=== PATIENT | female | born 1995 | race Caucasian/White ===

== ENCOUNTER 2017-12-10 10:00 | Outpatient (RCR) | payer OTHER ==
[~2017-12-10 10:00] MED LIST: IBP600T1 PO
== END 2018-03-10 | disposition home or self-care (01) ==
LOC: CARD 10:00 → MERGE 10:00
PROVIDERS: ATTEND Family Medicine
DX: R00.0 Tachycardia, unspecified (principal)
CPT/HCPCS: 93225; 93226

== ENCOUNTER → 2017-12-16 | Outpatient (CLI) | payer OTHER ==
--- NOTE | 2017-12-16 12:28 | Diagnostic Imaging Report ---
INDICATION: care, second trimester. TECHNIQUE: Multiple real-time grayscale images were obtained over the gravid uterus. COMPARISON: 10/06/2017. FINDINGS: The previous OB ultrasound exam of 10/06/2017 noted a single live fetus of approximately 9 weeks 2 days gestation +/-1 week. On this exam, the fetus is again visualized. The fetus is in transverse presentation. heart motion was noted and a rate of 138 BPM was recorded. There are no abnormalities identified. However because of the patient's body habitus, the kidneys, spine, and four-chamber heart view are less than optimal. I would recommend that a short-term (4-6 week) followup exam be performed for further study. The growth parameters are fairly uniform and have progressed as expected since the prior study. The placenta is anterior and there is no previa. The amniotic fluid volume is within normal limits. IMPRESSION: 1. There is a single live fetus of approximately 19 weeks 3 days gestation +/-1 week. The EDC remains May 09, 2018. 2. There were no abnormalities identified but the kidneys, spine, and four-chamber heart view were less than optimal. Recommendations, as above. 3. The growth parameters have progressed as expected since the prior exam. Biometrical measurements are as follows: Biparietal 4.67 cm, age 20 weeks 1 days. Head circumference 17.31 cm, age 20 weeks 0 days. Abdominal circumference 14.77 cm, age 20 weeks 1 days. Femur length 3.10 cm, age 19 weeks 5 days. Sonographic estimate age: 20 weeks 0 days. Sonographic estimated date of delivery: 05/05/18. Estimated Weight: 317 gm (+/- 46 gm). LMP percentile: 71%. heart rate: 138 beats per minute. number: 1 of 1. Dictated by: Dictated on workstation # [id number]
== END ==
LOC: MERGE 10:06 → RAD 10:06
PROVIDERS: ATTEND Family Medicine
DX: Z34.82 Encounter for supervision of other normal pregnancy, second trimester (principal); Z3A.19 19 weeks gestation of pregnancy
CPT/HCPCS: 76805

== ENCOUNTER → 2018-01-08 | Outpatient (CLI) | payer OTHER ==
--- NOTE | 2018-01-08 17:53 | Diagnostic Imaging Report ---
INDICATION: patient, follow-up study for areas of anatomy not seen on the previous study of 12/16/2017. TECHNIQUE: Multiple real-time grayscale images were obtained over the gravid uterus. COMPARISON: 12/16/2017. FINDINGS: Normal-appearing spine and kidneys and four-chamber heart view were seen on today's study. Remaining structures were visualized on the previous study of 12/16/2017 were not repeated. Amniotic fluid is qualitatively normal. The placenta is anterior and grade 1 with no previa. heart rate is 146 beats per minute. Fetus is in transverse presentation. Cervical length is 7.2 cm. IMPRESSION: Limited study performed to follow-up incomplete areas of anatomy seen on the previous study. On today's study, spine, kidneys, and four-chamber heart view are seen and appear unremarkable. heart rate is 146 beats per minute. Anatomic areas which were visualized on the previous study of 12/16/2017 were not repeated on today's study. Dictated by: Dictated on workstation # [id number]
== END ==
LOC: RAD 15:16
PROVIDERS: ATTEND Family Medicine
DX: Z34.82 Encounter for supervision of other normal pregnancy, second trimester (principal); Z3A.00 Weeks of gestation of pregnancy not specified
CPT/HCPCS: 36415; 76816; 86850; 86900; 86901

== ENCOUNTER 2018-04-25 09:39 | Outpatient (CLI) | payer OTHER ==
[~2018-04-25] VITALS: Ht 162.6 cm; Wt 118.4 kg
[2018-04-25 11:50] VITALS: BP 124/73
[2018-04-25 12:15] LABS: BASOPHILS % (AUTO) 0 % (0-10); EOSINOPHILS % (AUTO) 0 % (0-10); HEMATOCRIT 33 % (35-52); HEMOGLOBIN 11.2 G/DL (11.5-16.0); LYMPHOCYTES % (AUTO) 17 % (12-44); MEAN CORPUSCULAR HEMOGLOBIN 27 PG (25-34); MEAN CORPUSCULAR HGB CONC 34 G/DL (32-36); MEAN CORPUSCULAR VOLUME 81 FL (80-99); MEAN PLATELET VOLUME 10.1 FL (7.4-10.4); MONOCYTES # (AUTO) 0.7 X 10^3 (0.0-1.0); MONOCYTES % (AUTO) 6 % (0-12); NEUTROPHILS % (AUTO) 77 % (42-75); PLATELET COUNT 267 10^3/uL (130-400); RED BLOOD COUNT 4.09 10^6/uL (4.35-5.85); RED CELL DISTRIBUTION WIDTH 14.9 % (10.0-14.5); WHITE BLOOD COUNT 11.7 10^3/uL (4.3-11.0)
[2018-04-25 12:33] LABS: ALANINE AMINOTRANSFERASE 15 U/L (0-55); ALKALINE PHOSPHATASE 193 U/L (40-136); BILIRUBIN,TOTAL 0.4 MG/DL (0.1-1.0); BUN/CREATININE RATIO 14; CALCIUM 8.8 MG/DL (8.5-10.1); CARBON DIOXIDE 18 MMOL/L (21-32); CHLORIDE 108 MMOL/L (98-107); CREATININE SERUM 0.57 MG/DL (0.60-1.30); GFR ESTIMATED > 60; GLUCOSE 70 MG/DL (70-105); POTASSIUM 4.2 MMOL/L (3.6-5.0); SODIUM 135 MMOL/L (135-145); TOTAL PROTEIN 6.3 GM/DL (6.4-8.2)
--- NOTE | 2018-04-27 21:25 | Physician Query-Final Dx ---
MARYSOL UGARTE 04/27/185: Clinic Account Progress/Dx Physician Query: Please give diagnosis Need diagnosis and weeks of gestation. Date of Service Apr 25, 2018 at 09:39 GARY RODRIGUEZ DO 04/28/18 0941: Clinic Account Progress/Dx DIAGNOSIS: Diagnosis 37 week GA pruritus w/o rash - normal NST, normal LFT - bile acid salts to r/o cholestasis of ordered and are pending MARYSOL UGARTE Apr 27, 2018 21:25 GARY RODRIGUEZ DO Apr 28, 2018 09:41
[2018-04-28] MEDS ORDERED: PREN-142 PO (17:00)
[2018-04-29] MEDS ORDERED: DOCU100C37 PO (11:03)
[2018-04-29] MEDS ORDERED: IBUP-1773 PO (11:03)
[2018-04-29] MEDS ORDERED: HYDR-4226 PO (11:03)
== END 2018-04-25 12:54 | disposition home or self-care (01) ==
LOC: LDRP 09:39 → WSo 09:39
PROVIDERS: ATTEND Family Medicine
DX: L29.9 Pruritus, unspecified (principal); Z3A.37 37 weeks gestation of pregnancy
CPT/HCPCS: 36415; 80053; 83789; 85025; 99213

== ENCOUNTER 2018-04-28 12:44 | Inpatient (IN) | payer OTHER ==
[~2018-04-28] VITALS: Ht 162.6 cm; Wt 118.4 kg
[2018-04-28] VITALS (34 sets, daily range): BP systolic 90–142; BP diastolic 59–90
[2018-04-28] MEDS ORDERED: OXYTOCIN/NORMAL SALINE 500 ML IV SCH (13:03)
[2018-04-28] MEDS ORDERED: AMPICILLIN FOR IV USE 2,000 MG in NS (IVPB) 50 ML IV SCH (13:03)
--- OUTSIDE RECORDS SUMMARY | 2018-04-28 13:15 | XMS REPORT ---
Author Author [facility] Address [address] [place] [address] Care Team Providers Care Supervisor Production Department Name Role Phone TORITO LONGORIAY Unavailable PROBLEMS Type Condition ICD9-CM Code [id number] Code Onset Dates Condition Status SNOMED Code Problem Rheumatoid arthritis involving multiple sites with positive rheumatoid factor M05.79 Active 96397243 Problem Rheumatoid arthritis M06.9 Active 36687366 Problem care, subsequent in third trimester Z34.83 Active 251403582 Problem Vasomotor rhinitis J30.0 Active 1374420 Problem Other obesity due to excess calories E66.09 Active 377481123 Problem Body mass index (BMI) of 40.0-44.9 in adult Z68.41 Active 276948272 Problem Seasonal allergies J30.2 Active 545497508 Problem Obesity complicating , unspecified trimester O99.210 Active 205251749514 ALLERGIES No Known Allergies ENCOUNTERS Encounter Location Date Diagnosis [place] [id number] [place] [address] 78050- 7996 Apr, [place] [id number] [place] [address] 44813- 8101 Apr, [place] [id number] [place] [address] 65890- 1318 Apr, screening for streptococcus B Z36.85 ; care, subsequent in third trimester Z34.83 and 36 weeks gestation of Z3A.36 [place] [address] [address]- [address] Mar, 34 weeks gestation of Z3A.34 ; Third trimester Z34.93 and BMI 40.0-44.9, adult Z68.41 [facility] [id number] [place] [address] 39875- 1039 Mar, [place] [id number] [place] [address] 20178- 1774 Mar, BMI 40.0-44.9, adult Z68.41 ; 32 weeks gestation of Z3A.32 ; Third trimester Z34.93 ; Right hip pain M25.551 and Encounter for immunization Z23 [place] [address] 0[address]- 8187 Feb, care, subsequent in third trimester Z34.83 and 29 weeks gestation of Z3A.[address] [address]- 9[address] 06 Feb, 2018 BMI 40.0-44.9, adult Z68.41 and care, subsequent in second trimester Z34.82 [place] [address] 97931- 8859 15 Jan, 2018 Diabetes mellitus screening Z13.1 [place] [address] 41842- 0904 08 Jan, 2018 care, subsequent in second trimester Z34.82 and 23 weeks gestation of Z3A.23 [place] [address] 61676- 8680 07 Jan, 2018 [facility] [id number] [place] [address] 23329 -8050 Jan, Seasonal allergies J30.2 ; Vasomotor rhinitis J30.0 and Sore throat J02.9 [place] [id number] [place] [address] 51613- 6696 December, care, subsequent in second trimester Z34.82 ; 20 weeks gestation of Z3A.20 ; Evaluate anatomy not seen on prior sonogram Z04.8 and Diabetes mellitus screening Z13.1 [place] [id number] [place] [address] 42247- 4602 Nov, Racing heart beat R00.0 [facility] [id number] [place] [address] 29875- 3563 Nov, Racing heart beat R00.0 [facility] [id number] [place] [address] 31998- 3828 Nov, [facility] [id number] [place] [address] 73777- 3846 Nov, care, subsequent in second trimester Z34.82 and 16 weeks gestation of Z3A.16 [place] [id number] [place] [address] 27174- 1099 Oct, care in first trimester Z34.91 ; Supervision of other high risk pregnancies, first trimester O09.891 ; 12 weeks gestation of Z3A.12 and Red blood cell antibody positive R76.8 [place] [id number] [place] [address] 99730- 6170 Sep, [facility] [id number] [place] [address] 90647- 5088 Sep, care in first trimester Z34.91 and 8 weeks gestation of Z3A.08 [place] [id number] [place] [address] 31631- 5191 Sep, [place] [id number] [place] [address] 37623- 9159 Sep, [place] [id number] [place] [address] 69902- 3698 Sep, [place] [id number] [place] [address] 26369- 2082 Sep, Encounter for test Z32.00 [place] [id number] [place] [address] 93614- 6839 Jun, [place] [id number] [place] [address] 25758- 0618 Jun, Infertility counseling Z31.69 [place] [id number] [address] 24[address] Jun, 2017 Infertility counseling Z31.69 ; Other obesity due to excess calories E66.09 ; Body mass index (BMI) of 40.0-44.9 in adult Z68.41 and BMI 40.0-44.9, adult Z68.41 [facility] [place] [id number] [place] [address] 38251 -7227 Apr, Acute suppurative otitis media of right ear with spontaneous rupture of tympanic membrane, recurrence not specified H66.011 [place] [id number] [place] [address] 17375- 7874 Feb, Bacterial conjunctivitis of right eye H10.9 [facility] [place] [id number] [place] [address] 11625 -3651 Nov, Sore throat J02.9 and Acute upper respiratory infection, unspecified J06.9 [place] [id number] [place] [address] 59188- 1358 Oct, Encounter for test Z32.00 [place] [id number] [place] [address] 79734- 7132 Sep, [place] [id number] [place] [address] 85070- 1042 Aug, [facility] [place] [id number] [place] [address] 01528 -2182 Aug, Bacterial conjunctivitis of right eye H10.9 [place] [id number] [place] [address] 30895- 4116 Aug, [place] [id number] [place] [address] 16708- 7031 Aug, Rheumatoid arthritis involving multiple sites with positive rheumatoid factor M05.79 [place] [id number] [place] [address] 20868- 9784 Aug, Rheumatoid arthritis of multiple sites with negative rheumatoid factor M06.09 [facility] [address] [facility] [id number], [place] [address] 1493 Jul, Morbid obesity due to excess calories E66.01 [facility] [id number] [address] May, Sore throat J02.9 [facility] [address], [place] [address]- 1362 14 May, 2016 Rheumatoid arthritis involving multiple sites with positive rheumatoid factor M05.79 [facility] [id number], [place] [address]- 5085 May, [facility] WALK IN [facility] [address], [place] [address] Apr, Acute bacterial conjunctivitis of right eye H10.31 [facility] [address], [place] [address]- 3797 Feb, Rheumatoid arthritis M06.9 and Rheumatic heart failure I09.[address] [id number] [place] [address] Nov Rheumatoid arthritis M06.9 [facility] [id number] [address]- 4339 Nov, Rheumatoid arthritis M06.9 and Rheumatic heart failure I09.81 [facility] [address] [facility] [id number], [place] [address] 4893 Nov, Left shoulder pain M25.512 ; Rheumatoid arthritis M06.9 and Rheumatic heart failure I09.81 [facility] [address] [facility] [id number], [place] [address]- 2463 Aug, Rheumatoid arthritis M06.9 [facility] [address] [facility] [id number] [address] Aug, Acute bacterial conjunctivitis of right eye H10.021 [facility] [id number], [place] [address]- 8445 Jul, Rheumatic heart failure I09.81 [facility] [address] [place] [address] 05978- 8723 Jun, Rheumatoid arthritis M06.9 [place] [id number] [place] [address] 79106- 3990 16 Jun, 2015 Rheumatoid arthritis M06.9 [facility]ALK IN [facility] [id number] [place] [address] 30347 -7486 13 Jun, 2015 Hordeolum external, unspecified laterality H00.019 and Seasonal allergies J30.2 [facility] [place] [id number] [place] [address] 47086 -5047 09 Jun, 2015 Otitis media of both ears H66.93 ; Sore throat J02.9 and Unspecified perforation of tympanic membrane, right ear H72.91 [place] [id number] [place] [address] 82467- 8163 May, Rheumatoid arthritis M06.9 [place] [id number] [place] [address] 12236- 5469 24 Apr, 2015 Rheumatoid arthritis 714.0 [place] [address] 69003- 5861 18 Apr, 2015 Bilateral knee pain 719.46 and Routine adult health maintenance V70.0 [place] [id number] [place] [address] 69107- 2920 17 Apr, 2015 Bilateral knee pain 719.46 ; Routine adult health maintenance V70.0 and Bilateral elbow joint pain 719.42 [place] [id number] [place] [address] 12859- 6926 Mar, Contraception, generic surveillance V25.40 [place] [address] 09870- 8288 Mar, Conjunctivitis 372.30 and Rash 782.1 [place] [id number] [place] [address] 18256- 8356 Mar, [place] [address] [id number] [place] [address]- 6535 14 Nov, 2014 [facility] [place] [facility] [address] [id number] [place] [address]- 3195 13 Nov, 2014 [facility] [place] [facility] [address] [id number] [place] [address]- 5390 18 Oct, 2014 [facility] [place] [facility] [address] [id number] [place] [address]- 4279 17 Oct, 2014 [facility] [place] [facility] [address] [id number] [place] [address]- 1872 17 Oct, 2014 [facility] [place] [facility] [address] [id number] [place] [address]- 6026 14 Oct, 2014 [facility] [place] [facility] [address] [id number] [place] [address]- 0166 14 Oct, 2014 [facility] [place] [facility] [address] [id number] [place] [address]- 9425 Feb, [facility] [place] [facility] [address] [id number] [place] [address]- 8034 Feb, [facility] [place] [facility] [address] [id number] [place] [address]- 5171 December, [facility] [place] [facility] [address] [id number] [place] [address]- 2628 December, [facility] [place] [facility] [address] [id number] [place] [address]- 5920 December, [facility] [place] [facility] [address] [id number] [place] [address]- 7382 December, [facility] [place] [facility] [address] [id number] [place] [address]- 6977 December, [facility] [place] [facility] [address] [id number] [place] [address]- 8776 December, [facility] [place] [facility] [address] [id number] [place] [address]- 8295 December, [facility] [place] [facility] [address] [id number] [place] [address]- 9046 Nov, [facility] [place] [facility] [address] [id number] [place] [address]- 8812 Nov, [facility] [place] [facility] [address] [id number] [place] [address]- 0838 Nov, [facility] [place] [facility] [address] [id number] [place] [address]- 8768 Nov, [facility] [place] [facility] [address] [id number] [place] [address]- 6803 Nov, [facility] [place] [facility] [address] [id number] [place] [address]- 3728 Nov, [facility] [place] [facility] [address] [id number] [place] [address]- 3502 Nov, [facility] [place] [facility] [address] [id number] [place] [address]- 9958 Nov, [facility] [place] [facility] [address] [id number] [place] [address]- 5654 Oct, [facility] [place] [facility] [address] [id number] [place] [address]- 2957 Oct, [facility] [place] [facility] [address] [id number] [place] [address]- 4556 Oct, [facility] [place] [facility] [address] [id number] [place] [address]- 2990 Oct, [facility] [place] [facility] [address] [id number] [place] [address]- 7779 Sep, [facility] [place] [facility] [address] [id number] [place] [address]- 6700 Sep, [facility] [place] [facility] [address] [id number] [place] [address]- 6746 Aug, [facility] [place] [facility] [address] [id number] [place] [address]- 1509 08 Aug, 2013 [facility] [address] [id number] [place] [address]- 5061 Aug, [facility] [place] [facility] [address] [id number] [place] [address]- 7368 Jul, [facility] [address] [id number] [place] [address]- 0184 Jul, 2012 [facility] [place] [facility] [address] [id number] [place] [address]- 4776 Jul, 2012 [facility] [address] [id number] [place] [address]- 0428 Jul, 2012 [facility] [address] [id number] [place] [address]- 3371 Jul, [facility] [place] [facility] [address] [id number] [place] [address]- 3812 Jul, [facility] [address] [id number] [place] [address]- 6823 Jul, [facility] [place] [facility] [address] [id number] [place] [address]- 1539 Jul, [facility] [address] [id number] [place] [address]- 4119 Jun, [facility] [place] [facility] [address] [id number] [place] [address]- 6151 May, [facility] [place] [facility] [address] [id number] [place] [address]- 4783 May, [facility] [place] [facility] [address] [id number] [place] [address]- 2549 May, [facility] [place] [facility] [address] [id number] [place] [address]- 2586 May, [facility] [place] [facility] [address] [id number] [place] [address]- 4199 May, [facility] [address] [facility] [id number], [place] [address]- 1596 May, [facility] [address] [facility] [id number] [address]061 May, [facility] [address] [facility] [id number] 3112 Aug, [facility] [address] [facility] [id number], [place] [address]- 9732 Aug, [facility] [address] [facility] [id number] [place] [address]- 7743 Aug, [facility] [address] [facility] [id number], [place] [address]- 9466 Jun, [facility] [address] [facility] [id number], [place] [address]- 2396 Jun, [facility] [id number], [place] [address]- 2194 Jun, [facility] [address] [facility] [id number], [place] [address]- 8737 Jun, [facility] [address] [id number], [place] [address]- 6645 Jan, [facility] [address] [facility] [id number], [place] [address]- 0465 Jul, [facility] [address] [facility] [id number] [address]- 2855 Jul, [facility] [address] [facility] [id number], [place] [address]- 0486 May, [facility] [address] [facility] [id number]757 May, [facility] [address] [facility] [id number], [place] [address]- 7853 May, IMMUNIZATIONS No Known Immunizations SOCIAL HISTORY Never Assessed REASON FOR VISIT OB 2 week f/u-----Joe PLAN OF CARE Activity Details Follow Up 2 Weeks, 2 Weeks Reason: VITAL SIGNS Height 65 in 2018-02-26 Weight 248 lbs 2018-02-26 Temperature 97.9 degrees Fahrenheit 2018-02-26 Heart Rate 90 bpm 2018-02-26 Respiratory Rate 2018-02-26 BMI 41.269 kg/m2 2018-02-26 Blood pressure systolic 122 mmHg 2018-02-26 Blood pressure diastolic 84 mmHg 2018-02-26 MEDICATIONS Medication Instructions Dosage Frequency Start Date End Date Duration Status Active RESULTS Name Result Date Reference Range UA OB DIP (IN HOUSE) 2018-02-26 Glucose negative Protein 1+ PROCEDURES Procedure Date Ordered Result Body Site URINE-NO MICRO February 26, 2018 INSTRUCTIONS MEDICATIONS ADMINISTERED No Known Medications MEDICAL (GENERAL) HISTORY Type Description Date Medical History Rheumatoid Arthritis Medical History Blood sugars were high pt. placed on Metformin Hospitalization History childbirth only
--- OUTSIDE RECORDS SUMMARY | 2018-04-28 13:15 | XMS REPORT ---
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 Active 129874846912766 Problem Rheumatoid arthritis involving multiple sites with positive rheumatoid factor M05.79 Active 15054395 Problem Rheumatoid arthritis M06.9 Active 11917841 Problem care, subsequent in third trimester Z34.83 Active 863832394 Problem Vasomotor rhinitis J30.0 Active 6558511 Problem Other obesity due to excess calories E66.09 Active 310931175 Problem Body mass index (BMI) of 40.0-44.9 in adult Z68.41 Active 868912157 Problem Seasonal allergies J30.2 Active 276470628 Problem Obesity complicating , unspecified trimester O99.210 Active 128564949728 ALLERGIES No Known Allergies ENCOUNTERS Encounter Location Date Diagnosis [place] [id number] [address] May, [place] [id number] [address] 19 Apr, 2018 [facility] [id number] [address] 16 Apr, 2018 [place] [id number] [place] [address]- 8563 13 Apr, 2018 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 ; care, subsequent in third trimester Z34.83 ; 37 weeks gestation of Z3A.37 and BMI 40.0-44.9, adult Z68.41 [place] [address] [place] [address] [id number] [place] [address] 27083- 1022 07 Apr, 2018 screening for streptococcus B Z36.85 ; care, subsequent in third trimester Z34.83 and 36 weeks gestation of Z3A.36 [place] [address] [id number] [place] [address] 26063- 0378 Mar, 34 weeks gestation of Z3A.34 ; Third trimester Z34.93 and BMI 40.0-44.9, adult Z68.41 [place] [address] [address] Mar, [address] [address] Mar, BMI 40.0-44.9, adult Z68.41 ; 32 weeks gestation of Z3A.32 ; Third trimester Z34.93 ; Right hip pain M25.551 and Encounter for immunization Z23 [address] [address] Feb, care, subsequent in third trimester Z34.83 and 29 weeks gestation of Z3A.[address] [address]- [address] Feb, BMI 40.0-44.9, adult Z68.41 and care, subsequent in second trimester Z34.82 [place] [id number] [place] [address]97- 3065 15 Jan, 2018 Diabetes mellitus screening Z13.[address] [address] 08 Jan, 2018 care, subsequent in second trimester Z34.82 and 23 weeks gestation of Z3A.[address] [address]- [address] 07 Jan, 2018 [facility] [address] [address] 04 Jan, 2018 Seasonal allergies J30.2 ; Vasomotor rhinitis J30.0 and Sore throat J02.9 [place] [id number] [place] [address] 30527- 4008 December, care, subsequent in second trimester Z34.82 ; 20 weeks gestation of Z3A.20 ; Evaluate anatomy not seen on prior sonogram Z04.8 and Diabetes mellitus screening Z13.1 [place] [address] [address]- [address]676 Nov, Racing heart beat R00.0 [place] [address] [address] [id number] [place] [address] 57117- 1499 Nov, Racing heart beat R00.0 [place] [address] [id number] [place] [address] 98913- 8016 Nov, [place] [id number] [place] [address] 48957- 7642 Nov, care, subsequent in second trimester Z34.82 and 16 weeks gestation of Z3A.16 [place] [address] [id number] [place] [address] 9[address]01- 8691 Oct, care in first trimester Z34.91 ; Supervision of other high risk pregnancies, first trimester O09.891 ; 12 weeks gestation of Z3A.12 and Red blood cell antibody positive R76.8 [place] [address] [id number] [place] [address] 79749- 2699 Sep, [place] [id number] [place] [address] 98131- 2756 Sep, care in first trimester Z34.91 and 8 weeks gestation of Z3A.08 [place] [id number] [place] [address] 81119- 7223 08 Sep, 2017 [place] [id number] [place] [address] 30862- 8285 Sep, [place] [address] [place] [id number] [address] 07 Sep, 2017 [place] [address] [id number] [place] [address] 51659- 6796 Sep, Encounter for test Z32.00 [place] [address] [address] [id number] [place] [address] 02479- 0949 Jun, [place] [address] [address]- [address]293 Jun, Infertility counseling Z31.69 [place] [address] [address]- 7969 Jun, Infertility counseling Z31.69 ; Other obesity due to excess calories E66.09 ; Body mass index (BMI) of 40.0-44.9 in adult Z68.41 and BMI 40.0-44.9, adult Z68.41 [facility] [place] [address] [id number] [place] [address] -9377 Apr, Acute suppurative otitis media of right ear with spontaneous rupture of tympanic membrane, recurrence not specified H66.011 [place] [address] [id number] [place] [address] 53735- 9630 Feb, Bacterial conjunctivitis of right eye H10.9 [facility] [place] [address] [address] [id number] [place] [address] 23352 -9687 Nov, Sore throat J02.9 and Acute upper respiratory infection, unspecified J06.9 [place] [id number] [place] [address] 87921- 1961 Oct, Encounter for test Z32.00 [place] [address] [id number] [place] [address] 19395- 3684 Sep, [place] [address] [id number] [place] [address] 79937- 6042 Aug, [facility] [place] [address] [address] [id number] [place] [address] 18398 -9968 Aug, Bacterial conjunctivitis of right eye H10.9 [facility] [id number] [address] 16 Aug, 2016 [facility] [address] [address] 5963 16 Aug, 2016 Rheumatoid arthritis involving multiple sites with positive rheumatoid factor M05.79 [facility] [address] [address] 0[address] 16 Aug, 2016 Rheumatoid arthritis of multiple sites with negative rheumatoid factor M06.09 [facility] [id number] [address]- 7568 Jul, Morbid obesity due to excess calories E66.01 [facility] [address] [address] May, Sore throat J02.9 [facility] [id number] [address]- 2697 14 May, 2016 Rheumatoid arthritis involving multiple sites with positive rheumatoid factor M05.79 [facility] [id number] [address]- 6[address] May, [facility] [id number] [address] 28 Apr, 2016 Acute bacterial conjunctivitis of right eye H10.31 [facility] [id number] [address] 50[address] Feb, Rheumatoid arthritis M06.9 and Rheumatic heart failure I09.81 [facility] [address] [id number] [place] [address] Nov Rheumatoid arthritis M06.9 [place] [id number] [address] Nov, Rheumatoid arthritis M06.9 and Rheumatic heart failure I09.81 [place] [id number] [address] 0[address] Nov, Left shoulder pain M25.512 ; Rheumatoid arthritis M06.9 and Rheumatic heart failure I09.81 [facility] [id number] [place] [address] 30136- 7019 Aug, Rheumatoid arthritis M06.9 [facility] [id number] [place] [address] 44895 -7901 Aug, Acute bacterial conjunctivitis of right eye H10.021 [place] [address] [id number] [place] [address] 92507- 1228 Jul, Rheumatic heart failure I09.81 [place] [address] [id number] [place] [address] 40264- 0791 Jun, Rheumatoid arthritis M06.9 [place] [id number] [place] [address] 66072- 0194 Jun, Rheumatoid arthritis M06.9 [facility] [address] [id number] [place] [address] 30753 -0469 Jun, Hordeolum external, unspecified laterality H00.019 and Seasonal allergies J30.2 [facility] [place] [id number] [place] [address] 42219 -4772 09 Jun, 2015 Otitis media of both ears H66.93 ; Sore throat J02.9 and Unspecified perforation of tympanic membrane, right ear H72.91 [place] [address] [id number] [place] [address] 49848- 9196 May, Rheumatoid arthritis M06.9 [place] [address] [id number] [place] [address] 17363- 5748 24 Apr, 2015 Rheumatoid arthritis 714.0 [place] [address] [address]- 1084 18 Apr, 2015 Bilateral knee pain 719.46 and Routine adult health maintenance V70.0 [place] [id number] [place] [address] 36380- 0271 17 Apr, 2015 Bilateral knee pain 719.46 ; Routine adult health maintenance V70.0 and Bilateral elbow joint pain 719.42 [facility] [address] [facility] [id number] [address]- 8659 17 Mar, 2015 Contraception, generic surveillance V25.40 [facility] [address] [facility] [id number] [address]- 4761 14 Mar, 2015 Conjunctivitis 372.30 and Rash 782.1 [facility] [address] [facility] [id number] [place] [address] 75355- 7092 14 Mar, 2015 [facility] [address] [facility] [id number] [place] [address] 32275- 2918 Nov, [facility] [id number] [place] [address] 58899- 1277 Nov, [facility] [id number] [place] [address] 37015- 4679 18 Oct, 2014 [facility] [id number] [address]- 7175 Oct, [facility] [address] [address]- 2993 Oct, [facility] [address] [address]- 2445 Oct, [facility] [address] [address]- 3668 Oct, [facility] [address] [facility] [id number] [address]- 0727 Feb, [facility] [address] [facility] [id number] [address]- 6911 Feb, [facility] [id number] [address]- 5921 December, [facility] [id number] [address]- 8712 December, [facility] [id number] [place] [address]- 7433 December, [facility] [address] [id number] [place] [address]- 2467 December, [facility] [place] [facility] [address] [id number] [place] [address]- 5665 December, [facility] [place] [facility] [address] [id number] [place] [address]- 1097 December, [facility] [place] [facility] [address] [id number] [place] [address]- 2255 December, [facility] [place] [facility] [address] [id number] [place] [address]- 2406 Nov, [facility] [place] [facility] [address] [id number] [place] [address]- 5033 Nov, [facility] [place] [facility] [address] [id number] [place] [address]- 4241 Nov, [facility] [place] [facility] [address] [id number] [place] [address]- 6195 Nov, [facility] [place] [facility] [address] [id number] [place] [address]- 3282 Nov, [facility] [place] [facility] [address] [id number] [place] [address]- 9244 Nov, [facility] [place] [facility] [address] [id number] [place] [address]- 5428 Nov, [facility] [place] [facility] [address] [id number] [place] [address]- 0268 Nov, [facility] [place] [facility] [address] [id number] [place] [address]- 7223 Oct, [facility] [place] [facility] [address] [id number] [place] [address]- 8865 Oct, [facility] [place] [facility] [address] [id number] [place] [address]- 2631 Oct, [facility] [place] [facility] [address] [id number] [place] [address] 2541 Oct, [facility] [place] [facility] [address] [id number] [place] [address]- 3973 Sep, [facility] [place] [facility] [address] [id number] [place] [address]- 9749 Sep, [facility] [place] [facility] [address] [id number] [place] [address]- 3470 Aug, [facility] [place] [facility] [address] [id number] [place] [address]- 8182 Aug, [facility] [place] [facility] [address] [id number] [place] [address]- 6512 Aug, [facility] [address] [id number] [place] [address]- 6370 Jul, [facility] [place] [facility] [address] [id number] [place] [address]- 1674 Jul, [facility] [place] [facility] [address] [id number] [place] [address]- 4398 Jul, [facility] [place] [facility] [address] [id number] [place] [address]- 4749 Jul, [facility] [place] [facility] [address] [facility] [id number] [place] [address]- 8333 Jul, [facility] [place] [facility] [address] [id number] [address]- 4708 Jul, [facility] [place] [facility] [address] [id number] [place] [address]- 7689 Jul, [facility] [place] [facility] [address] [id number] [place] [address]- 5237 Jul, [facility] [place] [facility] [address] [id number] [place] [address]- 9680 Jun, [facility] [place] [facility] [address] [id number] [place] [address]- 0762 May, [facility] [place] [facility] [address] [id number] [place] [address]- 9027 May, [facility] [place] [facility] [address] [id number] [place] [address]- 8558 May, [facility] [place] [facility] [address] [id number] [place] [address]- 7168 May, [facility] [place] [facility] [address] [id number] [place] [address]- 0545 May, [facility] [place] [facility] [address] [id number] [place] [address]- 5047 May, [facility] [place] [facility] [address] [id number] [place] [address]- 2051 May, [facility] [place] [facility] [address] [id number] [place] [address]- 2337 Aug, [facility] [place] [facility] [address] [id number] [place] [address]- 8961 Aug, [facility] [place] [facility] [address] [id number] [place] [address]- 0378 Aug, [facility] [place] [facility] [address] [id number] [place] [address]- 6165 Jun, [facility] [place] [facility] [address] [id number] [place] [address]- 4972 Jun, [facility] [place] [facility] [address] [id number] [place] [address]- 5910 Jun, [facility] [place] [facility] [address] [id number] [place] 3874 Jun, [facility] [place] [facility] [address] [id number] [place] [address]- 2520 Jan, [facility] [place] [facility] [address] [id number] [place] [address]- 0783 Jul, [facility] [place] [facility] [address] [facility] [id number] [place] [address]- 7366 Jul, [facility] [address] [facility] [id number] [place] 1227 May, [facility] [address] [facility] [id number] [place] [address]18 May, [facility] [address] [facility] [id number] [place] [address]- 7948 May, IMMUNIZATIONS Vaccine Route Administration Date Status TDAP (BOOSTRIX) IM Intramuscular Mar 19, 2018 Administered SOCIAL HISTORY Never Assessed REASON FOR VISIT OB 2wk f/u-mpolshakMA, Pain in pubic area is still occuring PLAN OF CARE Activity Details Follow Up 2 Weeks Reason: VITAL SIGNS Height 65 in 2018-03-19 Weight 249.5 lbs 2018-03-19 Temperature 96.4 degrees Fahrenheit 2018-03-19 Heart Rate 107 bpm 2018-03-19 Respiratory Rate 20 2018-03-19 BMI 41.519 kg/m2 2018-03-19 Blood pressure systolic 128 mmHg 2018-03-19 Blood pressure diastolic 68 mmHg 2018-03-19 MEDICATIONS Medication Instructions Dosage Frequency Start Date End Date Duration Status Active RESULTS Name Result Date Reference Range UA OB DIP (IN HOUSE) 2018-03-19 Glucose neg Protein trace PROCEDURES Procedure Date Ordered Result Body Site URINE-NO MICRO Mar 19, 2018 SINGLE IMMUNIZATION ADMIN Mar 19, 2018 TDAP (BOOSTRIX) Mar 19, 2018 INSTRUCTIONS MEDICATIONS ADMINISTERED No Known Medications MEDICAL (GENERAL) HISTORY Type Description Date Medical History Rheumatoid Arthritis Medical History Blood sugars were high pt. placed on Metformin Hospitalization History childbirth only
--- OUTSIDE RECORDS SUMMARY | 2018-04-28 13:16 | XMS REPORT ---
Author Author SWATI DILIP [facility] Address [address] [place] [address] Care Team Providers Care Fur Mixer Name Role Phone TORITO LONGORIAY Unavailable PROBLEMS Type Condition ICD9-CM Code QHS00-TD Code Onset Dates Condition Status SNOMED Code Problem Rheumatoid arthritis involving multiple sites with positive rheumatoid factor M05.79 Active 81584632 Problem Rheumatoid arthritis M06.9 Active 60740111 Problem care, subsequent in third trimester Z34.83 Active 610878487 Problem Vasomotor rhinitis J30.0 Active 8794604 Problem Other obesity due to excess calories E66.09 Active 660995091 Problem Body mass index (BMI) of 40.0-44.9 in adult Z68.41 Active 773946013 Problem Seasonal allergies J30.2 Active 569260080 Problem Obesity complicating , unspecified trimester O99.210 Active [id number] ALLERGIES No Information ENCOUNTERS Encounter Location Date Diagnosis [facility] [id number] [place] [address] 45748- 3036 Apr, [facility] [id number] [place] [address] 56172- 2167 Apr, [facility] [id number] [place] [address] 79481- 2516 Apr, [facility] [id number] [place] [address] 45979- 3766 Mar, 34 weeks gestation of Z3A.34 ; Third trimester Z34.93 and BMI 40.0-44.9, adult Z68.41 [facility] [id number] [place] [address] 70776- 2677 Mar, [facility] [address] 93297- 2525 Mar, BMI 40.0-44.9, adult Z68.41 ; 32 weeks gestation of Z3A.32 ; Third trimester Z34.93 ; Right hip pain M25.551 and Encounter for immunization Z23 [facility] [place] [id number] [place] [address] 25549- 8999 Feb, care, subsequent in third trimester Z34.83 and 29 weeks gestation of Z3A.29 [place] [address] 81526- 5909 06 Feb, 2018 BMI 40.0-44.9, adult Z68.41 and care, subsequent in second trimester Z34.82 [place] [address] 91782- 6647 15 Jan, 2018 Diabetes mellitus screening Z13.[address] 69426- 1285 08 Jan, 2018 care, subsequent in second trimester Z34.82 and 23 weeks gestation of Z3A.23 [place] [address] 37397- 0786 07 Jan, 2018 [facility] [address] 9[address] -8956 Jan, Seasonal allergies J30.2 ; Vasomotor rhinitis J30.0 and Sore throat J02.[address] 84538- 8414 December, care, subsequent in second trimester Z34.82 ; 20 weeks gestation of Z3A.20 ; Evaluate anatomy not seen on prior sonogram Z04.8 and Diabetes mellitus screening Z13.1 [place] [address] 80394- 1754 Nov, Racing heart beat R00.[address] 96857- 5268 Nov, Racing heart beat R00.0 [place] [address] [place] [address] 51015- 0605 Nov, [facility] [id number] [place] [address] 89827- 9313 Nov, care, subsequent in second trimester Z34.82 and 16 weeks gestation of Z3A.16 [facility] [place] [id number] [place] [address] 28690- 3111 Oct, care in first trimester Z34.91 ; Supervision of other high risk pregnancies, first trimester O09.891 ; 12 weeks gestation of Z3A.12 and Red blood cell antibody positive R76.8 [facility] [id number] [place] [address] 81453- 4543 Sep, [facility] [place] [id number] [place] [address] 83645- 4003 Sep, care in first trimester Z34.91 and 8 weeks gestation of Z3A.08 [place] [id number] [place] [address] 08815- 3866 Sep, [facility] [place] [id number] [place] [address] 00725- 4355 Sep, [place] [id number] [place] [address] 85161- 3068 Sep, [facility] [place] [id number] [place] [address] 93582- 5193 Sep, Encounter for test Z32.00 [facility] [id number] [place] [address] 93846- 5298 Jun, [facility] [place] [id number] [place] [address] 32351- 2109 Jun, Infertility counseling Z31.69 [place] [id number] [place] [address] 97511- 8223 Jun, Infertility counseling Z31.69 ; Other obesity due to excess calories E66.09 ; Body mass index (BMI) of 40.0-44.9 in adult Z68.41 and BMI 40.0-44.9, adult Z68.41 [facility] [place] [id number] [place] [address] 50228 -7263 23 Apr, 2017 Acute suppurative otitis media of right ear with spontaneous rupture of tympanic membrane, recurrence not specified H66.011 [place] [id number] [place] [address] 69746- 4840 Feb, Bacterial conjunctivitis of right eye H10.9 [facility] [place] [address] 04964 -2126 Nov, Sore throat J02.9 and Acute upper respiratory infection, unspecified J06.9 [place] [id number] [place] [address] 50959- 3596 Oct, Encounter for test Z32.00 [place] [id number] [place] [address] 50905- 6785 Sep, [place] [address] 99548- 8452 Aug, [facility] [place] [id number] [place] [address] 48329 -4027 Aug, Bacterial conjunctivitis of right eye H10.9 [place] [id number] [place] [address] 12335- 3075 Aug, [place] [id number] [place] [address] 95438- 5427 Aug, Rheumatoid arthritis involving multiple sites with positive rheumatoid factor M05.79 [place] [address] 86403- 2165 Aug, Rheumatoid arthritis of multiple sites with negative rheumatoid factor M06.09 [place] [address] 48712- 7228 Jul, Morbid obesity due to excess calories E66.01 [facility] [id number] [address] May, Sore throat J02.9 [facility] [id number] [address]- 5840 14 May, 2016 Rheumatoid arthritis involving multiple sites with positive rheumatoid factor M05.79 [facility] [address] [address]- 1550 May, [facility] [address] [address] 28 Apr, 2016 Acute bacterial conjunctivitis of right eye H10.31 [facility] [address] [address]- 0382 Feb, Rheumatoid arthritis M06.9 and Rheumatic heart failure I09.[address] [id number] [place] [address] Nov Rheumatoid arthritis M06.9 [facility] [address] [address]- 5777 Nov, Rheumatoid arthritis M06.9 and Rheumatic heart failure I09.81 [facility] [address] [address]- 1782 Nov, Left shoulder pain M25.512 ; Rheumatoid arthritis M06.9 and Rheumatic heart failure I09.81 [facility] [id number] [address]- 2245 Aug, Rheumatoid arthritis M06.9 [facility] [address] [facility] [id number] [address] Aug, Acute bacterial conjunctivitis of right eye H10.021 [facility] [id number] [address]- 6753 Jul, Rheumatic heart failure I09.81 [facility] [address] [address]- 6451 24 Jun, 2015 Rheumatoid arthritis M06.9 [facility] [id number] [place] [address] 60823- 7196 16 Jun, 2015 Rheumatoid arthritis M06.9 [facility] [id number] [place] [address] 21637 -7847 13 Jun, 2015 Hordeolum external, unspecified laterality H00.019 and Seasonal allergies J30.2 [facility] [id number] [place] [address] 33356 -5598 09 Jun, 2015 Otitis media of both ears H66.93 ; Sore throat J02.9 and Unspecified perforation of tympanic membrane, right ear H72.91 [place] [id number] [place] [address] 71146- 0704 21 May, 2015 Rheumatoid arthritis M06.9 [place] [id number] [place] [address] 14406- 2732 24 Apr, 2015 Rheumatoid arthritis 714.0 [place] [address] 60920- 8172 18 Apr, 2015 Bilateral knee pain 719.46 and Routine adult health maintenance V70.0 [place] [id number] [place] [address] 16471- 2662 17 Apr, 2015 Bilateral knee pain 719.46 ; Routine adult health maintenance V70.0 and Bilateral elbow joint pain 719.42 [place] [id number] [place] [address] 06922- 7647 17 Mar, 2015 Contraception, generic surveillance V25.40 [place] [place] [id number] [place] [address] 63163- 1620 14 Mar, 2015 Conjunctivitis 372.30 and Rash 782.1 [place] [id number] [place] [address] 25110- 7731 14 Mar, 2015 [place] [id number] [place] [address] 33085- 8463 Nov, [place] [address] [id number] [place] [address]- 4360 13 Nov, 2014 [facility] [place] [facility] [address] [id number] [place] [address]- 5053 18 Oct, 2014 [facility] [place] [facility] [address] [id number] [place] [address]- 9346 17 Oct, 2014 [facility] [place] [facility] [address] [id number] [place] [address]- 3783 17 Oct, 2014 [facility] [place] [facility] [address] [id number] [place] [address]- 9788 14 Oct, 2014 [facility] [place] [facility] [address] [id number] [place] [address]- 6308 14 Oct, 2014 [facility] [place] [facility] [address] [id number] [place] [address]- 4936 Feb, [facility] [place] [facility] [address] [id number] [place] [address]- 1858 Feb, [facility] [place] [facility] [address] [id number] [place] [address]- 5895 December, [facility] [place] [facility] [address] [id number] [place] [address]- 4495 December, [facility] [place] [facility] [address] [id number] [place] [address]- 4169 December, [facility] [place] [facility] [address] [id number] [place] [address]- 1807 December, [facility] [place] [facility] [address] [id number] [place] [address]- 2378 December, [facility] [place] [facility] [address] [id number] [place] [address]- 8261 December, [facility] [place] [facility] [address] [id number] [place] [address]- 1766 December, [facility] [place] [facility] [address] [id number] [place] [address]- 2230 Nov, [facility] [place] [facility] [address] [id number] [place] [address]- 4278 Nov, [facility] [place] [facility] [address] [id number] [place] [address]- 3271 Nov, [facility] [place] [facility] [address] [id number] [place] [address]- 0624 Nov, [facility] [place] [facility] [address] [id number] [place] [address]- 3497 Nov, [facility] [place] [facility] [address] [id number] [place] [address]- 1955 Nov, [facility] [place] [facility] [address] [id number] [place] [address]- 3447 Nov, [facility] [place] [facility] [address] [id number] [place] [address]- 8662 Nov, [facility] [place] [facility] [address] [id number] [place] [address]- 9473 Oct, [facility] [place] [facility] [address] [id number] [place] [address]- 2845 Oct, [facility] [place] [facility] [address] [id number] [place] [address]- 1597 Oct, [facility] [place] [facility] [address] [id number] [place] [address]- 0156 Oct, [facility] [place] [facility] [address] [id number] [address]- 5129 Sep, [facility] [place] [facility] [address] [id number] [place] [address]- 1013 Sep, [facility] [place] [facility] [address] [id number] [place] [address]- 7947 Aug, [facility] [place] [facility] [address] [id number] [place] [address]- 7736 Aug, [facility] [place] [facility] [address] [id number] [place] [address]- 7134 Aug, [facility] [address] [id number] [place] [address]- 4106 Jul, 2012 [facility] [address] [id number] [place] [address]- 4620 Jul, 2012 [facility] [address] [id number] [place] [address]- 6200 Jul, 2012 [facility] [address] [id number] [place] [address]- 7188 Jul, 2012 [facility] [address] [id number] [place] [address]- 3937 Jul, 2012 [facility] [address] [id number] [place] [address]- 8823 Jul, [facility] [address] [id number] [place] [address]- 4216 Jul, [facility] [address] [id number] [place] [address]- 9717 Jul, [facility] [address] [facility] [id number] [place] [address]- 5443 Jun, [facility] [address] [facility] [id number] [place] [address]- 0783 May, [facility] [place] [facility] [address] [id number] [place] [address]- 9335 May, [facility] [place] [facility] [address] [id number] [place] [address]- 9265 May, [facility] [place] [facility] [address] [id number] [place] [address]- 6061 May, [facility] [place] [facility] [address] [facility] [id number] [place] [address]- 1834 May, [facility] [place] [facility] [address] [facility] [id number] [place] [address]- 1840 May, [facility] [id number] [address]- 4156 May, [facility] [address] [address]- 7096 Aug, [facility] [id number] [address]- 2806 Aug, [facility] [address] [address]- 4766 Aug, [facility] [address] [address]- 7984 Jun, [facility] [address] [address]- 5336 Jun, [facility] [address] [address]- 2176 Jun, [facility] [address] [address]- 0146 Jun, [facility] [address] [address]- 6316 Jan, [facility] [address] [address] Jul, [facility] [address] [address]- 5546 Jul, [facility] [address] [address]- 8076 May, [facility] [id number] [address]- 9636 May, [facility] [address] [address]- 0316 May, IMMUNIZATIONS No Known Immunizations SOCIAL HISTORY Never Assessed REASON FOR VISIT Lab (walk-in) PLAN OF CARE VITAL SIGNS MEDICATIONS Unknown Medications RESULTS No Results PROCEDURES Procedure Date Ordered Result Body Site GLUCOSE TEST January 22, 2018 COMPLETE CBC W/AUTO DIFF WBC January 22, 2018 INSTRUCTIONS MEDICATIONS ADMINISTERED No Known Medications MEDICAL (GENERAL) HISTORY Type Description Date Medical History Rheumatoid Arthritis Medical History Blood sugars were high pt. placed on Metformin Hospitalization History childbirth only
--- OUTSIDE RECORDS SUMMARY | 2018-04-28 13:16 | XMS REPORT ---
Author Author SWATI DILIP [facility] Address [address] [place] [address] Care Team Providers Care Director Of Strategic Initiatives Name Role Phone TORITO LONGORIAY Unavailable PROBLEMS Type Condition ICD9-CM Code ZVR14-EI Code Onset Dates Condition Status SNOMED Code Problem Rheumatoid arthritis involving multiple sites with positive rheumatoid factor M05.79 Active 33876610 Problem Rheumatoid arthritis M06.9 Active 97177649 Problem care, subsequent in third trimester Z34.83 Active 163452585 Problem Vasomotor rhinitis J30.0 Active 0469461 Problem Other obesity due to excess calories E66.09 Active 990336163 Problem Body mass index (BMI) of 40.0-44.9 in adult Z68.41 Active 085292129 Problem Seasonal allergies J30.2 Active 200562584 Problem Obesity complicating , unspecified trimester O99.210 Active [id number] ALLERGIES No Known Allergies ENCOUNTERS Encounter Location Date Diagnosis [facility] [id number] [place] [address] 78764- 9292 Apr, [facility] [id number] [place] [address] 25150- 4552 Apr, [facility] [id number] [place] [address] 12808- 7155 Apr, [facility] [id number] [place] [address] 03428- 1586 Mar, 34 weeks gestation of Z3A.34 ; Third trimester Z34.93 and BMI 40.0-44.9, adult Z68.41 [facility] [id number] [place] [address] 07011- 4314 Mar, [facility] [id number] [place] [address] 03631- 2035 Mar, BMI 40.0-44.9, adult Z68.41 ; 32 weeks gestation of Z3A.32 ; Third trimester Z34.93 ; Right hip pain M25.551 and Encounter for immunization Z23 [place] [id number] [place] [address] 67841- 8659 Feb, care, subsequent in third trimester Z34.83 and 29 weeks gestation of Z3A.29 [place] [address] 31332- 9581 06 Feb, 2018 BMI 40.0-44.9, adult Z68.41 and care, subsequent in second trimester Z34.82 [place] [address] 31327- 4937 15 Jan, 2018 Diabetes mellitus screening Z13.[address] 28781- 2259 08 Jan, 2018 care, subsequent in second trimester Z34.82 and 23 weeks gestation of Z3A.23 [place] [address] 94024- 1636 07 Jan, 2018 [facility] [address] [address] -[address]25 Jan, Seasonal allergies J30.2 ; Vasomotor rhinitis J30.0 and Sore throat J02.[address] [address]68- 1224 December, care, subsequent in second trimester Z34.82 ; 20 weeks gestation of Z3A.20 ; Evaluate anatomy not seen on prior sonogram Z04.8 and Diabetes mellitus screening Z13.1 [place] [address] 00230- 3461 Nov, Racing heart beat R00.0 [place] [address] 49082- 3521 Nov, Racing heart beat R00.0 [place] [id number] [place] [address] 97143- 0553 Nov, [place] [id number] [place] [address] 19314- 1900 Nov, care, subsequent in second trimester Z34.82 and 16 weeks gestation of Z3A.16 [place] [address] 10258- 5369 Oct, care in first trimester Z34.91 ; Supervision of other high risk pregnancies, first trimester O09.891 ; 12 weeks gestation of Z3A.12 and Red blood cell antibody positive R76.8 [place] [id number] [place] [address] 72433- 0121 Sep, [place] [id number] [place] [address] 32733- 6233 Sep, care in first trimester Z34.91 and 8 weeks gestation of Z3A.08 [place] [id number] [place] [address] 60571- 1741 Sep, [place] [id number] [place] [address] 32421- 4711 Sep, [place] [id number] [place] [address] 82317- 5978 Sep, [place] [id number] [place] [address] 33060- 8410 Sep, Encounter for test Z32.00 [place] [id number] [place] [address] 60031- 9406 Jun, [place] [id number] [place] [address] 88149- 8351 Jun, Infertility counseling Z31.69 [place] [id number] [place] [address] 88997- 5978 01 Nov, 2017 Infertility counseling Z31.69 ; Other obesity due to excess calories E66.09 ; Body mass index (BMI) of 40.0-44.9 in adult Z68.41 and BMI 40.0-44.9, adult Z68.41 [facility] [place] [id number] [place] [address] 62182 -3862 23 Apr, 2017 Acute suppurative otitis media of right ear with spontaneous rupture of tympanic membrane, recurrence not specified H66.011 [place] [id number] [place] [address] 79662- 8953 Feb, Bacterial conjunctivitis of right eye H10.9 [facility] [place] [address] 38967 -5593 Nov, Sore throat J02.9 and Acute upper respiratory infection, unspecified J06.9 [place] [id number] [place] [address] 40953- 2334 Oct, Encounter for test Z32.00 [place] [id number] [place] [address] 78156- 0257 Sep, [place] [id number] [place] [address] 37955- 6139 Aug, [facility] [place] [id number] [place] [address] 92287 -6548 Aug, Bacterial conjunctivitis of right eye H10.9 [place] [id number] [place] [address] 56546- 2123 Aug, [place] [id number] [place] [address] 97032- 4870 Aug, Rheumatoid arthritis involving multiple sites with positive rheumatoid factor M05.79 [place] [address] 91561- 2953 Aug, Rheumatoid arthritis of multiple sites with negative rheumatoid factor M06.09 [place] [address] 81173- 4390 Jul, Morbid obesity due to excess calories E66.01 [facility] [address] [address] May, Sore throat J02.9 [facility] [address] [address]- 6506 14 May, 2016 Rheumatoid arthritis involving multiple sites with positive rheumatoid factor M05.79 [facility] [address] [address]- 5920 May, [facility] [address] [address] 28 Apr, 2016 Acute bacterial conjunctivitis of right eye H10.31 [facility] [address] [address]- 0007 Feb, Rheumatoid arthritis M06.9 and Rheumatic heart failure I09.[address] [id number] [place] [address] Nov Rheumatoid arthritis M06.9 [facility] [address] [address]- 0870 Nov, Rheumatoid arthritis M06.9 and Rheumatic heart failure I09.81 [facility] [address] [address]- 2341 Nov, Left shoulder pain M25.512 ; Rheumatoid arthritis M06.9 and Rheumatic heart failure I09.81 [facility] [id number] [address]- 8769 Aug, Rheumatoid arthritis M06.9 [facility] [address] [facility] [id number] [address] Aug, Acute bacterial conjunctivitis of right eye H10.021 [facility] [id number] [address]- 7535 Jul, Rheumatic heart failure I09.81 [facility] [address] [address]- 9251 24 Jun, 2015 Rheumatoid arthritis M06.9 [facility] [address] [place] [address] 86151- 9109 16 Jun, 2015 Rheumatoid arthritis M06.9 [facility] [address] [place] [address] 83321 -1074 13 Jun, 2015 Hordeolum external, unspecified laterality H00.019 and Seasonal allergies J30.2 [facility] [id number] [place] [address] 03498 -5427 09 Jun, 2015 Otitis media of both ears H66.93 ; Sore throat J02.9 and Unspecified perforation of tympanic membrane, right ear H72.91 [place] [id number] [place] [address] 13347- 2610 21 May, 2015 Rheumatoid arthritis M06.9 [place] [id number] [place] [address] 68614- 7329 24 Apr, 2015 Rheumatoid arthritis 714.0 [place] [address] 03886- 0269 18 Apr, 2015 Bilateral knee pain 719.46 and Routine adult health maintenance V70.0 [place] [id number] [place] [address] 91440- 4090 17 Apr, 2015 Bilateral knee pain 719.46 ; Routine adult health maintenance V70.0 and Bilateral elbow joint pain 719.42 [place] [address] [place] [address] 16813- 8473 17 Mar, 2015 Contraception, generic surveillance V25.40 [place] [address] [place] [address] 41319- 8645 14 Mar, 2015 Conjunctivitis 372.30 and Rash 782.1 [place] [address] [place] [address] 49688- 5099 14 Mar, 2015 [place] [id number] [place] [address] 75440- 5685 Nov, [place] [address] [id number] [place] [address]- 8166 13 Nov, 2014 [facility] [place] [facility] [address] [id number] [place] [address]- 0295 18 Oct, 2014 [facility] [place] [facility] [address] [id number] [place] [address]- 5540 17 Oct, 2014 [facility] [place] [facility] [address] [id number] [place] [address]- 7262 17 Oct, 2014 [facility] [place] [facility] [address] [id number] [place] [address]- 8898 14 Oct, 2014 [facility] [place] [facility] [address] [id number] [place] [address]- 3737 14 Oct, 2014 [facility] [place] [facility] [address] [id number] [place] [address]- 2508 Feb, [facility] [place] [facility] [address] [id number] [place] [address]- 7978 Feb, [facility] [place] [facility] [address] [id number] [place] [address]- 9010 December, [facility] [place] [facility] [address] [id number] [place] [address]- 3429 December, [facility] [place] [facility] [address] [id number] [place] [address]- 5704 December, [facility] [place] [facility] [address] [id number] [place] [address]- 8587 December, [facility] [place] [facility] [address] [id number] [place] [address]- 9704 December, [facility] [place] [facility] [address] [id number] [place] [address]- 4463 December, [facility] [place] [facility] [address] [id number] [place] [address]- 4296 December, [facility] [place] [facility] [address] [id number] [place] [address]- 9463 Nov, [facility] [place] [facility] [address] [id number] [place] [address]- 5254 Nov, [facility] [place] [facility] [address] [id number] [place] [address]- 5730 Nov, [facility] [place] [facility] [address] [id number] [place] [address]- 9859 Nov, [facility] [place] [facility] [address] [id number] [place] [address]- 4246 Nov, [facility] [place] [facility] [address] [id number] [place] [address]- 9117 Nov, [facility] [place] [facility] [address] [id number] [place] [address]- 6816 Nov, [facility] [place] [facility] [address] [id number] [place] [address]- 9168 Nov, [facility] [place] [facility] [address] [id number] [place] [address]- 8210 Oct, [facility] [place] [facility] [address] [id number] [place] [address]- 8506 Oct, [facility] [place] [facility] [address] [id number] [place] [address]- 4921 Oct, [facility] [place] [facility] [address] [id number] [place] [address]- 6297 Oct, [facility] [place] [facility] [address] [id number] [place] [address]- 6601 Sep, [facility] [place] [facility] [address] [id number] [place] [address]- 9384 Sep, [facility] [place] [facility] [address] [id number] [place] [address]- 1440 Aug, [facility] [place] [facility] [address] [id number] [place] [address]- 8954 Aug, [facility] [place] [facility] [address] [id number] [place] [address]- 5194 Aug, [facility] [address] [id number] [place] [address]- 2345 Jul, 2012 [facility] [place] [facility] [address] [id number] [place] [address]- 4302 Jul, 2012 [facility] [address] [id number] [place] [address]- 2640 Jul, 2012 [facility] [place] [facility] [address] [id number] [place] [address]- 3351 Jul, 2012 [facility] [address] [id number] [place] [address]- 5840 Jul, 2012 [facility] [address] [id number] [place] [address]- 8000 Jul, [facility] [place] [facility] [address] [id number] [place] [address]- 3326 Jul, [facility] [address] [id number] [place] [address]- 6055 Jul, [facility] [place] [facility] [address] [id number] [place] [address]- 3047 Jun, [facility] [address] [facility] [id number] [place] [address]- 8761 May, [facility] [place] [facility] [address] [id number] [place] [address]- 0235 May, [facility] [place] [facility] [address] [id number] [place] [address]- 8965 May, [facility] [place] [facility] [address] [id number] [place] [address]- 1509 May, [facility] [place] [facility] [address] [id number] [place] [address]- 6766 May, [facility] [place] [facility] [address] [id number] [place] [address]- 9317 May, [facility] [address] [facility] [id number], [place] [address]- 3091 May, [facility] [address] [facility] [id number], [place] [address]- 8796 Aug, [facility] [address] [facility] [id number], [place] [address]- 9644 Aug, [facility] [address] [facility] [id number], [place] [address]- 6256 Aug, [facility] [address] [facility] [id number] 4309 Jun, [facility] [address] [facility] [id number], [place] [address]- 9836 Jun, [facility] [address], [place] [address]- 2436 Jun, [facility] [address], [place] [address]- 8594 Jun, [facility] [id number] [address]- 8585 Jan, [facility] [id number] [address]- 2606 Jul, [facility] [id number] [address]- 4306 Jul, [facility] [id number] [address]- 6425 May, [facility] [id number] [address]- 7958 May, [facility] [id number] [address]- 3570 May, IMMUNIZATIONS No Known Immunizations SOCIAL HISTORY Never Assessed REASON FOR VISIT OB 4wk f/u-awoods PLAN OF CARE Activity Details Follow Up 4 Weeks, 4 Weeks Reason: VITAL SIGNS Height 65 in 2018-01-15 Weight 242.3 lbs 2018-01-15 Temperature 96.6 degrees Fahrenheit 2018-01-15 Heart Rate 110 bpm 2018-01-15 Respiratory Rate 20 2018-01-15 BMI 40.321 kg/m2 2018-01-15 Blood pressure systolic 110 mmHg 2018-01-15 Blood pressure diastolic 70 mmHg 2018-01-15 MEDICATIONS Medication Instructions Dosage Frequency Start Date End Date Duration Status Active RESULTS Name Result Date Reference Range UA OB DIP (IN HOUSE) 2018-01-15 Glucose neg Protein trace PROCEDURES Procedure Date Ordered Result Body Site URINE-NO MICRO January 15, 2018 INSTRUCTIONS MEDICATIONS ADMINISTERED No Known Medications MEDICAL (GENERAL) HISTORY Type Description Date Medical History Rheumatoid Arthritis Medical History Blood sugars were high pt. placed on Metformin Hospitalization History childbirth only
--- OUTSIDE RECORDS SUMMARY | 2018-04-28 13:16 | XMS REPORT ---
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 Name Role Phone TORITO LONGORIAY Unavailable PROBLEMS Type Condition ICD9-CM Code QDQ63-AO Code Onset Dates Condition Status SNOMED Code Problem Rheumatoid arthritis involving multiple sites with positive rheumatoid factor M05.79 Active 48324299 Problem Rheumatoid arthritis M06.9 Active 32435330 Problem care, subsequent in third trimester Z34.83 Active 036890723 Problem Vasomotor rhinitis J30.0 Active 5523634 Problem Other obesity due to excess calories E66.09 Active 786089723 Problem Body mass index (BMI) of 40.0-44.9 in adult Z68.41 Active 836728452 Problem Seasonal allergies J30.2 Active 814921852 Problem Obesity complicating , unspecified trimester O99.210 Active [id number] ALLERGIES No Known Allergies ENCOUNTERS Encounter Location Date Diagnosis [facility] [id number] [place] [address] 65556- 2173 Apr, [facility] [id number] [place] [address] 49749- 4509 Apr, [facility] [id number] [place] [address] 42391- 5504 Apr, [facility] [id number] [place] [address] 41479- 7266 Mar, 34 weeks gestation of Z3A.34 ; Third trimester Z34.93 and BMI 40.0-44.9, adult Z68.41 [facility] [id number] [place] [address] 22821- 7957 Mar, [facility] [address] [address]- 4963 Mar, BMI 40.0-44.9, adult Z68.41 ; 32 weeks gestation of Z3A.32 ; Third trimester Z34.93 ; Right hip pain M25.551 and Encounter for immunization Z23 [place] [id number] [place] [address] 66478- 2259 Feb, care, subsequent in third trimester Z34.83 and 29 weeks gestation of Z3A.29 [place] [address] [address]- 8905 06 Feb, 2018 BMI 40.0-44.9, adult Z68.41 and care, subsequent in second trimester Z34.82 [place] [address] 85612- 1408 15 Jan, 2018 Diabetes mellitus screening Z13.[address] [address]- 3758 08 Jan, 2018 care, subsequent in second trimester Z34.82 and 23 weeks gestation of Z3A.23 [place] [address] 90016- 0932 07 Jan, 2018 [facility] [address] [address]17 Jan, Seasonal allergies J30.2 ; Vasomotor rhinitis J30.0 and Sore throat J02.[address] 65472- 3330 December, care, subsequent in second trimester Z34.82 ; 20 weeks gestation of Z3A.20 ; Evaluate anatomy not seen on prior sonogram Z04.8 and Diabetes mellitus screening Z13.1 [place] [address] 48426- 7028 Nov, Racing heart beat R00.0 [place] [address] 25822- 6214 Nov, Racing heart beat R00.0 [place] [id number] [place] [address] 93187- 2379 Nov, [place] [id number] [place] [address] 02753- 8180 Nov, care, subsequent in second trimester Z34.82 and 16 weeks gestation of Z3A.16 [place] [address] 29819- 8041 Oct, care in first trimester Z34.91 ; Supervision of other high risk pregnancies, first trimester O09.891 ; 12 weeks gestation of Z3A.12 and Red blood cell antibody positive R76.8 [place] [id number] [place] [address] 75479- 3551 Sep, [place] [id number] [place] [address] 66137- 1631 Sep, care in first trimester Z34.91 and 8 weeks gestation of Z3A.08 [place] [id number] [place] [address] 30115- 6279 Sep, [place] [id number] [place] [address] 00088- 5101 Sep, [place] [id number] [place] [address] 15703- 8126 Sep, [place] [id number] [place] [address] 71754- 5966 Sep, Encounter for test Z32.00 [place] [id number] [place] [address] 42927- 4019 Jun, [place] [id number] [place] [address] 98293- 0296 Jun, Infertility counseling Z31.69 [place] [id number] [place] [address] 86581- 0352 01 Nov, 2017 Infertility counseling Z31.69 ; Other obesity due to excess calories E66.09 ; Body mass index (BMI) of 40.0-44.9 in adult Z68.41 and BMI 40.0-44.9, adult Z68.41 [facility] [place] [id number] [place] [address] 54879 -0638 23 Apr, 2017 Acute suppurative otitis media of right ear with spontaneous rupture of tympanic membrane, recurrence not specified H66.011 [place] [id number] [place] [address] 05335- 2982 Feb, Bacterial conjunctivitis of right eye H10.9 [facility] [place] [address] [address]47 -9479 Nov, Sore throat J02.9 and Acute upper respiratory infection, unspecified J06.9 [place] [id number] [place] [address] 16906- 0757 Oct, Encounter for test Z32.00 [place] [id number] [place] [address] 76720- 5485 Sep, [place] [id number] [place] [address] 03143- 3695 Aug, [facility] [place] [id number] [place] [address] 83112 -2666 Aug, Bacterial conjunctivitis of right eye H10.9 [place] [id number] [place] [address] 45760- 4683 Aug, [place] [id number] [place] [address] 43141- 8277 Aug, Rheumatoid arthritis involving multiple sites with positive rheumatoid factor M05.79 [place] [address] 81374- 5139 Aug, Rheumatoid arthritis of multiple sites with negative rheumatoid factor M06.09 [place] [address] 46957- 0266 Jul, Morbid obesity due to excess calories E66.01 [facility] [address] [address] May, Sore throat J02.9 [facility] [address] [address]- 3351 14 May, 2016 Rheumatoid arthritis involving multiple sites with positive rheumatoid factor M05.79 [facility] [address] [address]- 2096 May, [facility] [address] [address] 28 Apr, 2016 Acute bacterial conjunctivitis of right eye H10.31 [facility] [address] [address]- 8395 Feb, Rheumatoid arthritis M06.9 and Rheumatic heart failure I09.[address] [id number] [place] [address] Nov Rheumatoid arthritis M06.9 [facility] [address] [address]- 6646 Nov, Rheumatoid arthritis M06.9 and Rheumatic heart failure I09.81 [facility] [address] [address]- 1662 Nov, Left shoulder pain M25.512 ; Rheumatoid arthritis M06.9 and Rheumatic heart failure I09.81 [facility] [id number] [address] 4699 Aug, Rheumatoid arthritis M06.9 [facility] [address] [facility] [id number] [address] Aug, Acute bacterial conjunctivitis of right eye H10.021 [facility] [id number] [address]- 5201 Jul, Rheumatic heart failure I09.81 [facility] [address] [address]- 2066 24 Jun, 2015 Rheumatoid arthritis M06.9 [facility] [address] [place] [address] 70167- 2047 16 Jun, 2015 Rheumatoid arthritis M06.9 [facility] [address] [place] [address] 41474 -4930 13 Jun, 2015 Hordeolum external, unspecified laterality H00.019 and Seasonal allergies J30.2 [facility] [id number] [place] [address] 66465 -4039 09 Jun, 2015 Otitis media of both ears H66.93 ; Sore throat J02.9 and Unspecified perforation of tympanic membrane, right ear H72.91 [place] [id number] [place] [address] 35174- 8217 21 May, 2015 Rheumatoid arthritis M06.9 [place] [id number] [place] [address] 61461- 7692 24 Apr, 2015 Rheumatoid arthritis 714.0 [place] [address] 94204- 2676 18 Apr, 2015 Bilateral knee pain 719.46 and Routine adult health maintenance V70.0 [place] [id number] [place] [address] 24495- 0657 17 Apr, 2015 Bilateral knee pain 719.46 ; Routine adult health maintenance V70.0 and Bilateral elbow joint pain 719.42 [place] [id number] [place] [address] 47898- 7161 17 Mar, 2015 Contraception, generic surveillance V25.40 [place] [id number] [place] [address] 96049- 8592 14 Mar, 2015 Conjunctivitis 372.30 and Rash 782.1 [place] [id number] [place] [address] 95218- 4976 14 Mar, 2015 [place] [id number] [place] [address] 60426- 5895 Nov, [place] [address] [id number] [place] [address]- 8859 13 Nov, 2014 [facility] [place] [facility] [address] [id number] [place] [address]- 4165 18 Oct, 2014 [facility] [place] [facility] [address] [id number] [place] [address]- 2236 17 Oct, 2014 [facility] [place] [facility] [address] [id number] [place] [address]- 2800 17 Oct, 2014 [facility] [place] [facility] [address] [id number] [place] [address]- 0223 14 Oct, 2014 [facility] [place] [facility] [address] [id number] [place] [address]- 2987 14 Oct, 2014 [facility] [place] [facility] [address] [id number] [place] [address]- 8893 Feb, [facility] [place] [facility] [address] [id number] [place] [address]- 3930 Feb, [facility] [place] [facility] [address] [id number] [place] [address]- 9418 December, [facility] [place] [facility] [address] [id number] [place] [address]- 1619 December, [facility] [place] [facility] [address] [id number] [place] [address]- 5394 December, [facility] [place] [facility] [address] [id number] [place] [address]- 9872 December, [facility] [place] [facility] [address] [id number] [place] [address]- 2347 December, [facility] [place] [facility] [address] [id number] [place] [address]- 0551 December, [facility] [place] [facility] [address] [id number] [place] [address]- 3185 December, [facility] [place] [facility] [address] [id number] [place] [address]- 6053 Nov, [facility] [place] [facility] [address] [id number] [place] [address]- 7141 Nov, [facility] [place] [facility] [address] [id number] [place] [address]- 0625 Nov, [facility] [place] [facility] [address] [id number] [place] [address]- 4813 Nov, [facility] [place] [facility] [address] [id number] [place] [address]- 3781 Nov, [facility] [place] [facility] [address] [id number] [place] [address]- 5250 Nov, [facility] [place] [facility] [address] [id number] [place] [address]- 9790 Nov, [facility] [place] [facility] [address] [id number] [place] [address]- 8488 Nov, [facility] [place] [facility] [address] [id number] [place] [address]- 9018 Oct, [facility] [place] [facility] [address] [id number] [place] [address]- 5987 Oct, [facility] [place] [facility] [address] [id number] [place] [address]- 6175 Oct, [facility] [place] [facility] [address] [id number] [place] [address]- 8229 Oct, [facility] [place] [facility] [address] [id number] [place] [address]- 8719 Sep, [facility] [place] [facility] [address] [id number] [place] [address]- 4262 Sep, [facility] [place] [facility] [address] [id number] [place] [address]- 0137 Aug, [facility] [place] [facility] [address] [id number] [place] [address]- 2813 Aug, [facility] [place] [facility] [address] [id number] [place] [address]- 6594 Aug, [facility] [address] [id number] [place] [address]- 0374 Jul, 2012 [facility] [place] [facility] [address] [id number] [place] [address]- 4289 Jul, 2012 [facility] [address] [id number] [place] [address]- 2212 Jul, 2012 [facility] [place] [facility] [address] [id number] [place] [address]- 9235 Jul, 2012 [facility] [address] [id number] [place] [address]- 2070 Jul, 2012 [facility] [address] [id number] [place] [address]- 9247 Jul, [facility] [place] [facility] [address] [id number] [place] [address]- 6624 Jul, [facility] [address] [id number] [place] [address]- 3291 Jul, [facility] [place] [facility] [address] [id number] [place] [address]- 2827 Jun, [facility] [address] [facility] [id number] [place] [address]- 4612 May, [facility] [place] [facility] [address] [id number] [place] [address]- 0849 May, [facility] [place] [facility] [address] [id number] [place] [address]- 6327 May, [facility] [place] [facility] [address] [id number] [place] [address]- 0052 May, [facility] [place] [facility] [address] [id number] [place] [address]- 8056 May, [facility] [place] [facility] [address] [id number] [place] [address]- 7119 May, [facility] [address] [facility] [id number] [address]- 5426 May, [facility] [address] [facility] [id number] [address]- 7036 Aug, [facility] [address] [facility] [id number] [address]- 8206 Aug, [facility] [address] [facility] [id number], [place] [address]- 6646 Aug, [facility] [address] [facility] [id number] [address]- 5945 Jun, [facility] [address] [facility] [id number] [address]- 7816 Jun, [facility] [address] [address]- 7826 Jun, [facility] [address] [address]- 2049 Jun, [facility] [id number] [address]- 7249 Jan, [facility] [id number] [address]- 9386 Jul, [facility] [id number], [place] [address]- 0656 Jul, [facility] [id number] [address]- 7283 May, [facility] [id number] [address]- 8000 May, [facility] [id number] [address]- 3076 May, IMMUNIZATIONS No Known Immunizations SOCIAL HISTORY Never Assessed REASON FOR VISIT OB 4wk f/u edwin lorenzana PLAN OF CARE Activity Details Follow Up 2 Weeks, 2 Weeks Reason: VITAL SIGNS Height 65 in 2018-02-12 Weight 247.2 lbs 2018-02-12 Temperature 97.9 degrees Fahrenheit 2018-02-12 Heart Rate 84 bpm 2018-02-12 Respiratory Rate 20 2018-02-12 BMI 41.136 kg/m2 2018-02-12 Blood pressure systolic 124 mmHg 2018-02-12 Blood pressure diastolic 74 mmHg 2018-02-12 MEDICATIONS Medication Instructions Dosage Frequency Start Date End Date Duration Status Active RESULTS Name Result Date Reference Range UA OB DIP (IN HOUSE) 2018-02-12 Glucose neg Protein trace PROCEDURES Procedure Date Ordered Result Body Site URINE-NO MICRO February 12, 2018 INSTRUCTIONS MEDICATIONS ADMINISTERED No Known Medications MEDICAL (GENERAL) HISTORY Type Description Date Medical History Rheumatoid Arthritis Medical History Blood sugars were high pt. placed on Metformin Hospitalization History childbirth only
--- OUTSIDE RECORDS SUMMARY | 2018-04-28 13:17 | XMS REPORT ---
Author Author SWATI DILIP [facility] Address [address] [place] [address] Care Team Providers Care Booster Operator Name Role Phone TORITO LONGORIAY Unavailable PROBLEMS Type Condition ICD9-CM Code UET90-WX Code Onset Dates Condition Status SNOMED Code Problem Rheumatoid arthritis involving multiple sites with positive rheumatoid factor M05.79 Active 46779572 Problem Rheumatoid arthritis M06.9 Active 22212555 Problem care, subsequent in third trimester Z34.83 Active 372275090 Problem Vasomotor rhinitis J30.0 Active 6893700 Problem Other obesity due to excess calories E66.09 Active 886509460 Problem Body mass index (BMI) of 40.0-44.9 in adult Z68.41 Active 394059296 Problem Seasonal allergies J30.2 Active 083763705 Problem Obesity complicating , unspecified trimester O99.210 Active 890886802830 ALLERGIES No Known Allergies ENCOUNTERS Encounter Location Date Diagnosis [place] [id number] [place] [address] 60233- 7512 24 Mar, 2018 [place] [address] [place] [address] 40923- 6958 Mar, BMI 40.0-44.9, adult Z68.41 ; 32 weeks gestation of Z3A.32 ; Third trimester Z34.93 ; Right hip pain M25.551 and Encounter for immunization Z23 [place] [address] [place] [id number] [place] [address] 45668- 7601 Feb, care, subsequent in third trimester Z34.83 and 29 weeks gestation of Z3A.29 [facility] [id number] [place] [address] 15656- 9940 Feb, BMI 40.0-44.9, adult Z68.41 and care, subsequent in second trimester Z34.82 [facility] [address] [place] [id number] [place] [address] 14644- 7435 15 Jan, 2018 Diabetes mellitus screening Z13.1 [place] [address] [place] [id number] [place] [address] 81594- 3140 08 Jan, 2018 care, subsequent in second trimester Z34.82 and 23 weeks gestation of Z3A.23 [place] [address] [place] [id number] [place] [address] 42254- 5424 07 Jan, 2018 [facility] [address] [id number] [place] [address] 12265 -0026 04 Jan, 2018 Seasonal allergies J30.2 ; Vasomotor rhinitis J30.0 and Sore throat J02.9 [place] [address] [place] [id number] [place] [address] 92660- 8216 December, care, subsequent in second trimester Z34.82 ; 20 weeks gestation of Z3A.20 ; Evaluate anatomy not seen on prior sonogram Z04.8 and Diabetes mellitus screening Z13.1 [place] [address] [place] [id number] [place] [address] 21861- 3635 Nov, Racing heart beat R00.0 [place] [address] [place] [id number] [place] [address] 45583- 2815 Nov, Racing heart beat R00.0 [place] [address] [place] [id number] [place] [address] 84862- 1250 Nov, [place] [address] [place] [id number] [place] [address] 92105- 5458 Nov, care, subsequent in second trimester Z34.82 and 16 weeks gestation of Z3A.16 [place] [address] [place] [id number] [place] [address] 06401- 1270 Oct, care in first trimester Z34.91 ; Supervision of other high risk pregnancies, first trimester O09.891 ; 12 weeks gestation of Z3A.12 and Red blood cell antibody positive R76.8 [place] [address] [place] [address] 73010- 4913 Sep, [place] [address] [place] [id number] [place] [address] 65710- 7816 Sep, care in first trimester Z34.91 and 8 weeks gestation of Z3A.08 [place] [address] [place] [id number] [place] [address] 29576- 1248 Sep, [place] [address] [place] [id number] [place] [address] 33401- 5403 Sep, [place] [address] [place] [id number] [place] [address] 20851- 1889 Sep, [place] [address] [place] [id number] [place] [address] 37653- 5991 Sep, Encounter for test Z32.00 [place] [address] [id number] [place] [address] 16618- 2107 Jun, [place] [address] [address] [id number] [place] [address] 57421- 5461 Jun, Infertility counseling Z31.69 [place] [address] [place] [id number] [place] [address] 19623- 8971 Jun, Infertility counseling Z31.69 ; Other obesity due to excess calories E66.09 ; Body mass index (BMI) of 40.0-44.9 in adult Z68.41 and BMI 40.0-44.9, adult Z68.41 [facility] [place] [address] [address] Apr, Acute suppurative otitis media of right ear with spontaneous rupture of tympanic membrane, recurrence not specified H66.011 [place] [address] [place] [address] 81326- 8667 Feb, Bacterial conjunctivitis of right eye H10.9 [facility] [place] [address] [address] [id number] [place] [address] 91924 -5309 10 Nov, 2016 Sore throat J02.9 and Acute upper respiratory infection, unspecified J06.9 [place] [address] [place] [id number] [place] [address] 56296- 8239 07 Oct, 2016 Encounter for test Z32.00 [place] [address] [place] [address] 04678- 8352 Sep, [facility] [address] [place] [address] [id number] [place] [address] 81778- 8808 Aug, [facility] [address] [place] [address] [id number] [place] [address] 29666 -9644 Aug, Bacterial conjunctivitis of right eye H10.9 [place] [address] [place] [address] [id number] [place] [address] 35831- 3179 Aug, [place] [address] [place] [id number] [place] [address] 08839- 5928 Aug, Rheumatoid arthritis involving multiple sites with positive rheumatoid factor M05.79 [place] [address] [place] [id number] [place] [address] 25366- 7872 Aug, Rheumatoid arthritis of multiple sites with negative rheumatoid factor M06.09 [place] [address] [place] [address] 40269- 3098 Jul, Morbid obesity due to excess calories E66.01 [facility] [address] [place] [address] 89019 -5711 May, Sore throat J02.9 [place] [address] [place] [address] 11698- 7033 14 May, 2016 Rheumatoid arthritis involving multiple sites with positive rheumatoid factor M05.79 [facility] [address] [place] [address] 43445- 0315 14 May, 2016 [facility] [address] [place] [address] 19693 -0491 Apr, Acute bacterial conjunctivitis of right eye H10.31 [facility] [address] [address] 3916 Feb, Rheumatoid arthritis M06.9 and Rheumatic heart failure I09.81 [facility] [place] [id number] [address] Nov Rheumatoid arthritis M06.9 [facility] [address] [address]- 6249 Nov, Rheumatoid arthritis M06.9 and Rheumatic heart failure I09.81 [facility] [address] [address]- 7290 Nov, Left shoulder pain M25.512 ; Rheumatoid arthritis M06.9 and Rheumatic heart failure I09.81 [place] [address] [address]- 1591 Aug, Rheumatoid arthritis M06.9 [facility] [address] [address] Aug, Acute bacterial conjunctivitis of right eye H10.021 [place] [address] [place] [address] 02865- 1520 Jul, Rheumatic heart failure I09.81 [facility] [address] [address]- 0170 Jun, Rheumatoid arthritis M06.9 [place] [address] [address]- 4920 16 Jun, 2015 Rheumatoid arthritis M06.9 [facility] [address] [address] 13 Jun, 2015 Hordeolum external, unspecified laterality H00.019 and Seasonal allergies J30.2 [facility] [address] [place] [id number] [address] 09 Jun, 2015 Otitis media of both ears H66.93 ; Sore throat J02.9 and Unspecified perforation of tympanic membrane, right ear H72.91 [facility] [address] [address]- 5604 21 May, 2015 Rheumatoid arthritis M06.9 [facility] [address] [place] [id number] [place] [address] 36943- 0988 24 Apr, 2015 Rheumatoid arthritis 714.0 [facility] [address] [place] [id number] [place] [address] 74404- 3374 18 Apr, 2015 Bilateral knee pain 719.46 and Routine adult health maintenance V70.0 [facility] [address] [place] [id number] [place] [address] 74879- 9214 17 Apr, 2015 Bilateral knee pain 719.46 ; Routine adult health maintenance V70.0 and Bilateral elbow joint pain 719.42 [facility] [address] [place] [id number] [place] [address] 77836- 2425 17 Mar, 2015 Contraception, generic surveillance V25.40 [facility] [address] [place] [id number] [place] [address] 55143- 4669 14 Mar, 2015 Conjunctivitis 372.30 and Rash 782.1 [facility] [address] [place] [id number] [place] [address] 18744- 5808 14 Mar, 2015 [facility] [address] [place] [address] [id number] [place] [address] 80826- 1829 14 Nov, 2014 [facility] [address] [place] [address] [id number] [place] [address] 47821- 6537 13 Nov, 2014 [facility] [address] [place] [address] [id number] [place] [address] 35953- 6892 18 Oct, 2014 [facility] [address] [place] [address] [id number] [place] [address] 74980- 5273 17 Oct, 2014 [facility] [address] [place] [address] [id number] [place] [address] 33055- 3060 17 Oct, 2014 [facility] [address] [place] [address] 20426- 7181 14 Oct, 2014 [facility] [place] [facility] [address] [id number] [place] [address]- 7413 Oct, [facility] [place] [facility] [address] [id number] [place] [address]- 4870 Feb, [facility] [place] [facility] [address] [id number] [place] [address]- 5080 Feb, [facility] [place] [facility] [address] [id number] [place] [address]- 0678 December, [facility] [place] [facility] [address] [id number] [place] [address]- 7281 December, [facility] [place] [facility] [address] [id number] [place] [address]- 4916 December, [facility] [place] [facility] [address] [id number] [place] [address]- 2975 December, [facility] [place] [facility] [address] [id number] [place] [address]- 4878 December, [facility] [place] [facility] [address] [id number] [place] [address]- 5745 December, [facility] [place] [facility] [address] [id number] [place] [address]- 2259 December, [facility] [place] [facility] [address] [id number] [place] [address]- 1070 Nov, [facility] [place] [facility] [address] [id number] [place] [address]- 6822 Nov, [facility] [place] [facility] [address] [id number] [place] [address]- 9902 Nov, [facility] [place] [facility] [address] [id number] [place] [address]- 6862 Nov, [facility] [place] [facility] [address] [id number] [place] [address]- 1744 Nov, [facility] [place] [facility] [address] [id number] [place] [address]- 1836 Nov, [facility] [place] [facility] [address] [id number] [place] [address]- 8869 Nov, [facility] [place] [facility] [address] [id number] [place] [address]- 2175 Nov, [facility] [place] [facility] [address] [id number] [place] [address]- 2958 Oct, [facility] [place] [facility] [address] [id number] [place] [address]- 4740 Oct, [facility] [place] [facility] [address] [id number] [place] [address]- 2257 Oct, [facility] [place] [facility] [address] [id number] [place] [address]- 5236 Oct, [facility] [place] [facility] [address] [id number] [place] [address]- 2407 Sep, [facility] [place] [facility] [address] [id number] [place] [address]- 0888 Sep, [facility] [place] [facility] [address] [id number] [place] [address]- 3471 Aug, [facility] [place] [facility] [address] [id number] [place] [address]- 6405 Aug, [facility] [place] [facility] [address] [id number] [address]- 9030 Aug, [facility] [place] [facility] [address] [id number], [place] [address]- 0748 Jul, [facility] [place] [facility] [address] [id number] [place] [address]- 7946 Jul, [facility] [place] [facility] [address] [id number] [place] [address]- 6952 Jul, [facility] [place] [facility] [address] [id number] [place] [address]- 7987 Jul, [facility] [place] [facility] [address] [id number] [place] [address]- 2546 Jul, [facility] [address] [id number] [place] [address]- 9749 Jul, [facility] [place] [facility] [address] [id number] [place] [address]- 2546 Jul, [facility] [address] [id number] [place] [address]- 0496 Jul, [facility] [place] [facility] [address] [id number] [place] [address]- 2053 Jun, [facility] [address] [id number] [place] [address]- 4817 May, [facility] [place] [facility] [address] [id number] [place] [address]- 6632 May, [facility] [place] [facility] [address] [id number] [place] [address]- 3847 May, [facility] [address] [id number] [place] [address]- 8668 May, [facility] [place] [facility] [address] [id number] [place] [address]- 5837 May, [facility] [address] [id number] [place] [address]- 7868 May, [facility] [place] [facility] [address] [id number] [place] [address]- 3342 May, [facility] [place] [facility] [address] [id number] [place] [address]- 9154 Aug, [facility] [place] [facility] [address] [id number] [place] [address]- 1410 Aug, [facility] [place] [facility] [address] [id number] [place] [address]- 2546 Aug, [facility] [place] [facility] [address] [id number] [place] [address]- 7667 Jun, [facility] [id number] [address]- 7284 Jun, [facility] [address], [place] [address]- 0241 Jun, [facility] [address] 6720 Jun, [facility] [address] 7678 Jan, [facility] [address] 5806 Jul, [facility] [address] [place] [address] 98828- 9419 Jul, [facility] [address] 8108 May, [facility] [address] [address]- 1045 May, [facility] [id number] [address]- 4617 May, IMMUNIZATIONS No Known Immunizations SOCIAL HISTORY Never Assessed REASON FOR VISIT OB 4wk f/u-twoodenMA PLAN OF CARE Activity Details Follow Up 4 Weeks, 4 Weeks Reason: VITAL SIGNS Height 65 in 2017-12-25 Weight 241.7 lbs 2017-12-25 Temperature 97.8 degrees Fahrenheit 2017-12-25 Heart Rate 96 bpm 2017-12-25 Respiratory Rate 20 2017-12-25 BMI 40.221 kg/m2 2017-12-25 Blood pressure systolic 120 mmHg 2017-12-25 Blood pressure diastolic 72 mmHg 2017-12-25 MEDICATIONS Medication Instructions Dosage Frequency Start Date End Date Duration Status Active RESULTS Name Result Date Reference Range UA OB DIP (IN HOUSE) 2017-12-25 Glucose neg Protein trace Ultrasound : OB, Follow-up 2018-01-08 PROCEDURES Procedure Date Ordered Result Body Site URINE-NO MICRO December 25, 2017 INSTRUCTIONS MEDICATIONS ADMINISTERED No Known Medications MEDICAL (GENERAL) HISTORY Type Description Date Medical History Rheumatoid Arthritis Medical History Blood sugars were high pt. placed on Metformin Hospitalization History childbirth only
--- OUTSIDE RECORDS SUMMARY | 2018-04-28 13:17 | XMS REPORT ---
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 Name Role Phone WANG NASIR YOST Unavailable PROBLEMS Type Condition ICD9-CM Code XUN65-XI Code Onset Dates Condition Status SNOMED Code Problem Rheumatoid arthritis involving multiple sites with positive rheumatoid factor M05.79 Active 77977083 Problem Rheumatoid arthritis M06.9 Active 44425458 Problem care, subsequent in third trimester Z34.83 Active 491718340 Problem Vasomotor rhinitis J30.0 Active 9014479 Problem Other obesity due to excess calories E66.09 Active 348924765 Problem Body mass index (BMI) of 40.0-44.9 in adult Z68.41 Active 008578681 Problem Seasonal allergies J30.2 Active 291353065 Problem Obesity complicating , unspecified trimester O99.210 Active [id number] ALLERGIES No Known Allergies ENCOUNTERS Encounter Location Date Diagnosis [place] [id number] [place] [address] 79474- 4143 Mar, [place] [address] [place] [id number] [place] [address] 79523- 5094 Mar, [place] [address] [place] [id number] [place] [address] 30864- 8423 Mar, BMI 40.0-44.9, adult Z68.41 ; 32 weeks gestation of Z3A.32 ; Third trimester Z34.93 ; Right hip pain M25.551 and Encounter for immunization Z23 [place] [address] [place] [id number] [place] [address] 18004- 2966 Feb, care, subsequent in third trimester Z34.83 and 29 weeks gestation of Z3A.29 [place] [address] [place] [address] 2[address] Feb, BMI 40.0-44.9, adult Z68.41 and care, subsequent in second trimester Z34.82 [place] [address] [place] [id number] [place] [address] 47396- 5085 15 Jan, 2018 Diabetes mellitus screening Z13.1 [place] [address] [address]- [address]92 08 Jan, 2018 care, subsequent in second trimester Z34.82 and 23 weeks gestation of Z3A.23 [place] [address] 32564- 4812 07 Jan, [address] [facility] [place] [address] [address] -[address] 04 Jan, 2018 Seasonal allergies J30.2 ; Vasomotor rhinitis J30.0 and Sore throat J02.9 [place] [address] 38399- 4381 December, care, subsequent in second trimester Z34.82 ; 20 weeks gestation of Z3A.20 ; Evaluate anatomy not seen on prior sonogram Z04.8 and Diabetes mellitus screening Z13.1 [place] [address] [place] [id number] [place] [address] 28901- 8138 Nov, Racing heart beat R00.0 [place] [address] [place] [id number] [place] [address] 84233- 0117 Nov, Racing heart beat R00.0 [place] [address] [place] [id number] [place] [address] 37319- 5764 Nov, [place] [address] 55916- 4937 Nov, care, subsequent in second trimester Z34.82 and 16 weeks gestation of Z3A.16 [place] [address] 62615- 4208 Oct, care in first trimester Z34.91 ; Supervision of other high risk pregnancies, first trimester O09.891 ; 12 weeks gestation of Z3A.12 and Red blood cell antibody positive R76.8 [place] [address] [place] [id number] [place] [address] 80270- 6243 Sep, [facility] [address] 01189- 3480 Sep, care in first trimester Z34.91 and 8 weeks gestation of Z3A.08 [place] [address] 04496- 9188 Sep, [place] [address] 85515- 5725 Sep, [place] [address] 53086- 1664 Sep, [place] [address] 94194- 7789 Sep, Encounter for test Z32.00 [place] [address] 61575- 5548 Jun, [place] [address] 42107- 5330 Jun, Infertility counseling Z31.69 [place] [address] 70668- 4827 Jun, Infertility counseling Z31.69 ; Other obesity due to excess calories E66.09 ; Body mass index (BMI) of 40.0-44.9 in adult Z68.41 and BMI 40.0-44.9, adult Z68.[address] [facility] [address] [place] [id number] [place] [address] 65912 -5485 Apr, Acute suppurative otitis media of right ear with spontaneous rupture of tympanic membrane, recurrence not specified H66.011 [place] [address] 71860- 4875 Feb, Bacterial conjunctivitis of right eye H10.9 [facility] [id number] [place] [address] 18741 -8692 10 Nov, 2016 Sore throat J02.9 and Acute upper respiratory infection, unspecified J06.9 [facility] [address] [address] 3149 Oct, Encounter for test Z32.00 [facility] [id number] [place] [address] 37050- 4993 Sep, [facility] [address] [place] [id number] [place] [address] 11403- 6280 Aug, [facility] [id number] [place] [address] 38837 -3584 Aug, Bacterial conjunctivitis of right eye H10.9 [facility] [id number] [place] [address] 81929- 1988 Aug, [facility] [id number] [place] [address] 76753- 0800 Aug, Rheumatoid arthritis involving multiple sites with positive rheumatoid factor M05.79 [place] [address] [place] [address] 24546- 8908 Aug, Rheumatoid arthritis of multiple sites with negative rheumatoid factor M06.09 [facility] [id number] [place] [address] 34892- 5829 Jul, Morbid obesity due to excess calories E66.01 [facility] [address] [address] May, Sore throat J02.9 [facility] [address] [place] [address] 02710- 9971 May, Rheumatoid arthritis involving multiple sites with positive rheumatoid factor M05.79 [place] [id number] [place] [address] 29838- 6061 May, [facility] [address] [address] 28 Apr, 2016 Acute bacterial conjunctivitis of right eye H10.31 [facility] [id number] [place] [address] 07529- 8952 Feb, Rheumatoid arthritis M06.9 and Rheumatic heart failure I09.81 [place] [id number] [address] Nov Rheumatoid arthritis M06.9 [facility] [address] [place] [id number] [place] [address] 36056- 4654 Nov, Rheumatoid arthritis M06.9 and Rheumatic heart failure I09.81 [place] [address] [place] [id number] [place] [address] 71110- 8647 Nov, Left shoulder pain M25.512 ; Rheumatoid arthritis M06.9 and Rheumatic heart failure I09.81 [facility] [address] [place] [id number] [place] [address] 46211- 1652 Aug, Rheumatoid arthritis M06.9 [facility] [address] [place] [id number] [place] [address] 39528 -2079 Aug, Acute bacterial conjunctivitis of right eye H10.021 [facility] [id number] [place] [address] 01750- 4080 Jul, Rheumatic heart failure I09.81 [facility] [id number] [place] [address] 84952- 6122 Jun, Rheumatoid arthritis M06.9 [facility] [id number] [place] [address] 81990- 1041 16 Jun, 2015 Rheumatoid arthritis M06.9 [facility] [id number] [place] [address] 37339 -0576 13 Jun, 2015 Hordeolum external, unspecified laterality H00.019 and Seasonal allergies J30.2 [facility] [id number] [place] [address] 68659 -6351 Jun, Otitis media of both ears H66.93 ; Sore throat J02.9 and Unspecified perforation of tympanic membrane, right ear H72.91 [facility] [id number] [place] [address] 14942- 0747 21 May, 2015 Rheumatoid arthritis M06.9 [facility] [address] [place] [id number] [place] [address] 82336- 5266 24 Apr, 2015 Rheumatoid arthritis 714.0 [facility] [address] [place] [id number] [place] [address] 55751- 8731 18 Apr, 2015 Bilateral knee pain 719.46 and Routine adult health maintenance V70.0 [facility] [address] [place] [id number] [place] [address] 44340- 5688 17 Apr, 2015 Bilateral knee pain 719.46 ; Routine adult health maintenance V70.0 and Bilateral elbow joint pain 719.42 [facility] [address] [place] [id number] [place] [address] 69361- 7951 Mar, Contraception, generic surveillance V25.40 [facility] [address] [place] [id number] [place] [address] 23508- 9787 Mar, Conjunctivitis 372.30 and Rash 782.1 [facility] [address] [place] [id number] [place] [address] 34498- 4429 Mar, [facility] [address] [place] [id number] [place] [address] 66747- 6817 Nov, [facility] [address] [place] [id number] [place] [address] 41620- 9399 13 Nov, 2014 [facility] [address] [place] [id number] [place] [address] 93887- 0884 18 Oct, 2014 [facility] [address] [place] [id number] [place] [address] [id number]- 8246 Oct, [facility] [address] [place] [id number] [place] [address] 85446- 2984 Oct, [facility] [place] [facility] [address] [id number] [place] [address]- 4015 Oct, [facility] [place] [facility] [address] [id number] [place] [address]- 3370 Oct, [facility] [place] [facility] [address] [id number] [place] [address]- 2612 Feb, [facility] [place] [facility] [address] [id number] [place] [address]- 5780 Feb, [facility] [address] [id number] [place] [address]- 3277 December, [facility] [place] [facility] [address] [id number] [place] [address]- 5067 December, [facility] [address] [id number] [place] [address]- 9975 December, [facility] [address] [id number] [place] [address]- 3607 December, [facility] [place] [facility] [address] [id number] [place] [address]- 3627 December, [facility] [place] [facility] [address] [id number] [place] [address]- 7349 December, [facility] [place] [facility] [address] [id number] [place] [address]- 1132 December, [facility] [place] [facility] [address] [id number] [place] [address]- 4357 Nov, [facility] [place] [facility] [address] [id number] [place] [address]- 2387 Nov, [facility] [place] [facility] [address] [id number] [place] [address]- 5410 Nov, [facility] [place] [facility] [address] [id number] [place] [address]- 6895 Nov, [facility] [place] [facility] [address] [id number] [place] [address]- 7650 Nov, [facility] [place] [facility] [address] [id number] [place] [address]- 3059 Nov, [facility] [place] [facility] [address] [id number] [place] [address]- 4571 Nov, [facility] [place] [facility] [address] [id number] [place] [address]- 7036 Nov, [facility] [place] [facility] [address] [id number] [place] [address]- 3322 Oct, [facility] [place] [facility] [address] [id number] [place] [address]- 2668 Oct, [facility] [place] [facility] [address] [id number] [place] [address]- 1471 Oct, [facility] [place] [facility] [address] [id number] [place] [address]- 4037 Oct, [facility] [place] [facility] [address] [id number] [place] [address]- 2735 Sep, [facility] [place] [facility] [address] [id number] [place] [address]- 0077 Sep, [facility] [place] [facility] [address] [id number] [place] [address]- 0851 Aug, [facility] [place] [facility] [address] [id number] [place] [address]- 6049 Aug, [facility] [place] [facility] [address] [id number] [place] [address]- 8619 Aug, [facility] [place] [facility] [address] [id number] [place] [address]- 0281 Jul, [facility] [place] [facility] [address] [id number] [place] [address]- 3646 Jul, [facility] [place] [facility] [address] [facility] [id number] [place] [address]- 7739 Jul, [facility] [place] [facility] [address] [id number] [place] [address]- 2546 Jul, [facility] [place] [facility] [address] [id number] [place] [address]- 6 Jul, [facility] [place] [facility] [address] [id number] [place] [address]- 2546 Jul, [facility] [place] [facility] [address] [id number] [place] [address]- 2546 Jul, [facility] [place] [facility] [address] [id number] [place] [address]- 2549 Jul, [facility] [place] [facility] [address] [id number] [place] [address]- 5409 Jun, [facility] [place] [facility] [address] [id number] [place] [address]- 9383 May, [facility] [place] [facility] [address] [id number] [place] [address]- 3041 May, [facility] [place] [facility] [address] [id number] [place] [address]- 5240 May, [facility] [place] [facility] [address] [id number] [place] [address]- 4480 May, [facility] [place] [facility] [address] [id number] [place] [address]- 9554 May, [facility] [place] [facility] [address] [id number] [place] [address]- 2546 May, [facility] [place] [facility] [address] [id number] [place] [address]- 2546 May, [facility] [place] [facility] [address] [id number] [place] [address]- 2546 Aug, [facility] [place] [facility] [address] [id number] [place] [address]- 2546 Aug, [facility] [place] [facility] [address] [id number] [place] 3285 Aug, [facility] [address] [address]- 0469 Jun, [facility] [address] 7247 Jun, [facility] [address] 3029 Jun, [facility] [id number] [place] [address] 26770- 2627 Jun, [facility] [address] [address]- 2343 Jan, [facility] [address] [place] [id number] [place] [address] 58706- 3353 Jul, [facility] [address] [place] [id number] [place] [address] 21855- 1955 Jul, [facility] [address] [address]- 9877 May, [facility] [address], [place] [address]- 5138 May, [facility] [address] [address]- 5223 May, IMMUNIZATIONS No Known Immunizations SOCIAL HISTORY Never Assessed REASON FOR VISIT sore throat Nasal congestion/drainage and cough since yesterday, started with sore throat today, Pt is QUIANA Andujar PLAN OF CARE Activity Details Follow Up prn Reason: VITAL SIGNS Height 65 in 2018-01-11 Weight 204.1 lbs 2018-01-11 Temperature 98.0 degrees Fahrenheit 2018-01-11 Heart Rate 90 bpm 2018-01-11 Respiratory Rate 20 2018-01-11 BMI 33.96 kg/m2 2018-01-11 Blood pressure systolic 104 mmHg 2018-01-11 Blood pressure diastolic 62 mmHg 2018-01-11 MEDICATIONS Medication Instructions Dosage Frequency Start Date End Date Duration Status Active RESULTS No Results PROCEDURES No Known procedures INSTRUCTIONS MEDICATIONS ADMINISTERED No Known Medications MEDICAL (GENERAL) HISTORY Type Description Date Medical History Rheumatoid Arthritis Medical History Blood sugars were high pt. placed on Metformin Hospitalization History childbirth only
--- OUTSIDE RECORDS SUMMARY | 2018-04-28 13:17 | XMS REPORT ---
Author Author [facility] Address [address] [place] [address] Care Team Providers Care Captain [employer] Name Role Phone TORITO LONGORIAY Unavailable PROBLEMS Type Condition ICD9-CM Code DCR44-CA Code Onset Dates Condition Status SNOMED Code Problem Rheumatoid arthritis involving multiple sites with positive rheumatoid factor M05.79 Active 49449552 Problem Rheumatoid arthritis M06.9 Active 91021124 Problem care, subsequent in third trimester Z34.83 Active 212003736 Problem Vasomotor rhinitis J30.0 Active 7637782 Problem Other obesity due to excess calories E66.09 Active 930544151 Problem Body mass index (BMI) of 40.0-44.9 in adult Z68.41 Active 835717909 Problem Seasonal allergies J30.2 Active 396030569 Problem Obesity complicating , unspecified trimester O99.210 Active [id number] ALLERGIES No Information ENCOUNTERS Encounter Location Date Diagnosis [place] [id number] [place] [address] 20566- 1582 Mar, [place] [id number] [place] [address] 16870- 0078 Mar, [place] [id number] [place] [address] 43704- 9994 Mar, BMI 40.0-44.9, adult Z68.41 ; 32 weeks gestation of Z3A.32 ; Third trimester Z34.93 ; Right hip pain M25.551 and Encounter for immunization Z23 [place] [id number] [place] [address] 34621- 3776 Feb, care, subsequent in third trimester Z34.83 and 29 weeks gestation of Z3A.29 [place] [address] 29312- 3114 Feb, BMI 40.0-44.9, adult Z68.41 and care, subsequent in second trimester Z34.82 [place] [id number] [place] [address] 36948- 8789 15 Jan, 2018 Diabetes mellitus screening Z13.1 [place] [id number] [place] [address] 80275- 4036 08 Jan, 2018 care, subsequent in second trimester Z34.82 and 23 weeks gestation of Z3A.23 [place] [address] 54201- 0340 07 Jan, 2018 [facility] [place] [address] [address] 04 Jan, 2018 Seasonal allergies J30.2 ; Vasomotor rhinitis J30.0 and Sore throat J02.9 [place] [id number] [place] [address] 51228- 7457 December, care, subsequent in second trimester Z34.82 ; 20 weeks gestation of Z3A.20 ; Evaluate anatomy not seen on prior sonogram Z04.8 and Diabetes mellitus screening Z13.1 [place] [id number] [place] [address] 72569- 7357 Nov, Racing heart beat R00.0 [place] [id number] [place] [address] 13533- 5113 Nov, Racing heart beat R00.0 [place] [id number] [place] [address] 11152- 9578 Nov, [place] [address] 91634- 0292 Nov, care, subsequent in second trimester Z34.82 and 16 weeks gestation of Z3A.16 [place] [id number] [place] [address] 98273- 6390 21 Mar, 2018 care in first trimester Z34.91 ; Supervision of other high risk pregnancies, first trimester O09.891 ; 12 weeks gestation of Z3A.12 and Red blood cell antibody positive R76.8 [place] [address] 89668- 8986 Sep, [place] [address] 45747- 7033 Sep, care in first trimester Z34.91 and 8 weeks gestation of Z3A.08 [place] [address] 53796- 8329 Sep, [place] [address] 78053- 9032 Sep, [place] [address] 69158- 2468 Sep, [place] [address] 31894- 6585 Sep, Encounter for test Z32.00 [place] [address] 98413- 5121 Jun, [place] [address] 21043- 9734 Jun, Infertility counseling Z31.69 [place] [address] 51617- 8614 Jun, Infertility counseling Z31.69 ; Other obesity due to excess calories E66.09 ; Body mass index (BMI) of 40.0-44.9 in adult Z68.41 and BMI 40.0-44.9, adult Z68.41 [facility] [id number] [place] [address] 91769 -3319 Apr, Acute suppurative otitis media of right ear with spontaneous rupture of tympanic membrane, recurrence not specified H66.011 [place] [address] 64454- 3827 Feb, Bacterial conjunctivitis of right eye H10.9 [facility] [address] [address] 10 Nov, 2016 Sore throat J02.9 and Acute upper respiratory infection, unspecified J06.9 [facility] [place] [facility] [address] [place] [address] 08635- 7208 07 Oct, 2016 Encounter for test Z32.00 [facility] [facility] [id number] [place] [address] 70124- 4005 Sep, [facility] [facility] [id number] [place] [address] 65386- 3254 Aug, [facility] [address] [place] [address] 01859 -3775 Aug, Bacterial conjunctivitis of right eye H10.9 [place] [address] [place] [address] 36513- 9847 16 Aug, 2016 [facility] [place] [facility] [address] [place] [address] 20568- 4404 Aug, Rheumatoid arthritis involving multiple sites with positive rheumatoid factor M05.79 [place] [id number] [place] [address] 85943- 3780 Aug, Rheumatoid arthritis of multiple sites with negative rheumatoid factor M06.09 [place] [address] [place] [address] 44272- 2444 Jul, Morbid obesity due to excess calories E66.01 [facility] [address], [place] [address] May, Sore throat J02.9 [facility] [place] [facility] [address] [place] [address] 02363- 4550 14 May, 2016 Rheumatoid arthritis involving multiple sites with positive rheumatoid factor M05.79 [place] [address] [place] [address] 89576- 1093 May, [facility] [address], [place] [address] 28 Apr, 2016 Acute bacterial conjunctivitis of right eye H10.31 [facility] [place] [facility] [address] [place] [address] 26258- 5853 Feb, Rheumatoid arthritis M06.9 and Rheumatic heart failure I09.81 [place] [id number] [address] Nov Rheumatoid arthritis M06.9 [facility] [place] [facility] [address] [place] [address] 02247- 0293 Nov, Rheumatoid arthritis M06.9 and Rheumatic heart failure I09.81 [place] [address] [place] [address] 30108- 3261 Nov, Left shoulder pain M25.512 ; Rheumatoid arthritis M06.9 and Rheumatic heart failure I09.81 [place] [address] [place] [address] 66342- 7806 Aug, Rheumatoid arthritis M06.9 [facility] [id number] [place] [address] 52136 -8446 Aug, Acute bacterial conjunctivitis of right eye H10.021 [facility] [place] [facility] [address] [place] [address] 19616- 7358 Jul, Rheumatic heart failure I09.81 [facility] [place] [facility] [id number] [place] [address] 38491- 8520 24 Jun, 2015 Rheumatoid arthritis M06.9 [facility] [place] [facility] [address] [place] [address] 68942- 5717 16 Jun, 2015 Rheumatoid arthritis M06.9 [facility] [id number] [place] [address] 74730 -6851 13 Jun, 2015 Hordeolum external, unspecified laterality H00.019 and Seasonal allergies J30.2 [facility] [address] [place] [address] 91336 -8626 Jun, Otitis media of both ears H66.93 ; Sore throat J02.9 and Unspecified perforation of tympanic membrane, right ear H72.91 [facility] [place] [facility] [id number] [place] [address] 49202- 2006 May, Rheumatoid arthritis M06.9 [facility] [place] [facility] [id number] [place] [address] 58395- 7443 24 Apr, 2015 Rheumatoid arthritis 714.0 [facility] [place] [facility] [id number] [place] [address] 84291- 1419 18 Apr, 2015 Bilateral knee pain 719.46 and Routine adult health maintenance V70.0 [place] [id number] [place] [address] 42302- 7892 17 Apr, 2015 Bilateral knee pain 719.46 ; Routine adult health maintenance V70.0 and Bilateral elbow joint pain 719.42 [facility] [place] [facility] [id number] [place] [address] 48308- 4238 Mar, Contraception, generic surveillance V25.40 [facility] [place] [facility] [id number] [place] [address] 04020- 3793 Mar, Conjunctivitis 372.30 and Rash 782.1 [facility] [place] [facility] [id number] [place] [address] 49163- 5297 Mar, [facility] [place] [facility] [id number] [place] [address] 13535- 9142 Nov, [facility] [place] [facility] [id number] [place] [address] 38866- 3587 Nov, [facility] [place] [facility] [id number] [place] [address] 13715- 1131 18 Oct, 2014 [facility] [place] [facility] [id number] [place] [address] 24528- 7506 Oct, [facility] [place] [facility] [id number] [place] [address] 85608- 1658 Oct, [facility] [place] [facility] [address] [id number] [place] [address]- 7636 14 Oct, 2014 [facility] [place] [facility] [address] [id number] [place] [address]- 0191 Oct, [facility] [place] [facility] [address] [id number] [place] [address]- 7590 Feb, [facility] [place] [facility] [address] [id number] [place] [address]- 5836 Feb, [facility] [place] [facility] [address] [id number] [place] [address]- 8030 December, [facility] [place] [facility] [address] [id number] [place] [address]- 3723 December, [facility] [place] [facility] [address] [id number] [place] [address]- 8069 December, [facility] [place] [facility] [address] [id number] [place] [address]- 2313 December, [facility] [place] [facility] [address] [id number] [place] [address]- 7196 December, [facility] [place] [facility] [address] [id number] [place] [address]- 5483 December, [facility] [place] [facility] [address] [id number] [place] [address]- 7013 December, [facility] [place] [facility] [address] [id number] [place] [address]- 0450 Nov, [facility] [place] [facility] [address] [id number] [place] [address]- 6460 Nov, [facility] [place] [facility] [address] [id number] [place] [address]- 7745 Nov, [facility] [place] [facility] [address] [id number] [place] [address]- 0312 Nov, [facility] [place] [facility] [address] [id number] [place] [address]- 1906 Nov, [facility] [place] [facility] [address] [id number] [place] [address]- 9335 Nov, [facility] [place] [facility] [address] [id number] [place] [address]- 6386 Nov, [facility] [place] [facility] [address] [facility] [id number] [place] [address]- 9111 Nov, [facility] [place] [facility] [address] [id number] [place] [address]- 3408 Oct, [facility] [place] [facility] [address] [id number] [place] [address]- 1387 Oct, [facility] [place] [facility] [address] [id number] [place] [address]- 6635 Oct, [facility] [place] [facility] [address] [facility] [id number] [place] [address]- 5164 Oct, [facility] [place] [facility] [address] [id number] [place] [address]- 9534 Sep, [facility] [place] [facility] [address] [id number] [place] [address]- 5434 Sep, [facility] [place] [facility] [address] [facility] [id number] [place] [address]- 4713 Aug, [facility] [place] [facility] [address] [facility] [id number], [place] [address]- 3880 Aug, [facility] [place] [facility] [address] [id number], [place] [address]- 1118 Aug, [facility] [place] [facility] [address] [id number] [place] [address]- 0514 Jul, [facility] [place] [facility] [address] [facility] [id number] [place] [address]- 8256 Jul, [facility] [place] [facility] [address] [facility] [id number] [place] [address]- 5336 Jul, [facility] [place] [facility] [address] [id number] [place] [address]- 2546 Jul, [facility] [address] [id number] [place] [address]- 3271 Jul, [facility] [place] [facility] [address] [id number] [place] [address]- 2546 Jul, [facility] [address] [id number] [place] [address]- 6290 Jul, [facility] [place] [facility] [address] [id number] [place] [address]- 2542 Jul, [facility] [address] [id number] [place] [address]- 5930 Jun, [facility] [place] [facility] [address] [id number] [place] [address]- 9427 May, [facility] [place] [facility] [address] [id number] [place] [address]- 8388 May, [facility] [address] [id number] [place] [address]- 4724 May, [facility] [place] [facility] [address] [id number] [place] [address]- 8485 May, [facility] [address] [facility] [id number] [place] [address]- 9996 May, [facility] [place] [facility] [address] [id number] [place] [address]- 7358 May, [facility] [place] [facility] [address] [id number] [place] [address]- 2546 May, [facility] [place] [facility] [address] [id number] [place] [address]- 2546 Aug, [facility] [place] [facility] [address] [id number] [place] [address]- 2546 Aug, [facility] [place] [facility] [address] [id number] [place] [address]- 2914 Aug, [facility] [place] [facility] [id number] [address]- 7236 Jun, [facility] [place] [facility] [address], [place] [address]- 8656 Jun, [facility] [place] [facility] [address], [place] [address]- 5796 Jun, [facility] [place] [facility] [address], [place] [address]- 9596 Jun, [facility] [place] [facility] [address], [place] [address]- 6688 Jan, [facility] [place] [facility] [address] [place] [address] 40166- 4416 Jul, [facility] [place] [facility] [address] [place] [address] 79091- 0306 Jul, [facility] [place] [facility] [address], [place] [address]- 4823 May, [facility] [place] [facility] [address], [place] [address]- 5019 May, [facility] [place] [facility] [id number]334 May, IMMUNIZATIONS No Known Immunizations SOCIAL HISTORY Never Assessed REASON FOR VISIT Requests return call PLAN OF CARE VITAL SIGNS MEDICATIONS Unknown Medications RESULTS No Results PROCEDURES No Known procedures INSTRUCTIONS MEDICATIONS ADMINISTERED No Known Medications MEDICAL (GENERAL) HISTORY Type Description Date Medical History Rheumatoid Arthritis Medical History Blood sugars were high pt. placed on Metformin Hospitalization History childbirth only
--- OUTSIDE RECORDS SUMMARY | 2018-04-28 13:18 | XMS REPORT ---
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 Name Role Phone DILIP LONGORIA Unavailable PROBLEMS Type Condition ICD9-CM Code [id number] Code Onset Dates Condition Status SNOMED Code Problem Rheumatoid arthritis involving multiple sites with positive rheumatoid factor M05.79 Active 25997717 Problem Rheumatoid arthritis M06.9 Active 15292577 Problem care, subsequent in third trimester Z34.83 Active 120281258 Problem Vasomotor rhinitis J30.0 Active 4841340 Problem Other obesity due to excess calories E66.09 Active 304785524 Problem Body mass index (BMI) of 40.0-44.9 in adult Z68.41 Active 714132266 Problem Seasonal allergies J30.2 Active 989607415 Problem Obesity complicating , unspecified trimester O99.210 Active [id number] ALLERGIES No Information ENCOUNTERS Encounter Location Date Diagnosis [place] [id number] [place] [address] 64218- 6578 Mar, [place] [id number] [place] [address] 59469- 9187 Feb, care, subsequent in third trimester Z34.83 and 29 weeks gestation of Z3A.29 [place] [id number] [place] [address] 35898- 0530 06 Feb, 2018 BMI 40.0-44.9, adult Z68.41 and care, subsequent in second trimester Z34.82 [place] [address] [place] [id number] [place] [address] 14273- 4254 15 Jan, 2018 Diabetes mellitus screening Z13.[address] [address]- [address] 08 Jan, 2018 care, subsequent in second trimester Z34.82 and 23 weeks gestation of Z3A.23 [facility] [address] [address]- [address] 07 Jan, 2018 [facility] [address] [address] 04 Jan, 2018 Seasonal allergies J30.2 ; Vasomotor rhinitis J30.0 and Sore throat J02.9 [place] [address] 44333- 8605 December, care, subsequent in second trimester Z34.82 ; 20 weeks gestation of Z3A.20 ; Evaluate anatomy not seen on prior sonogram Z04.8 and Diabetes mellitus screening Z13.1 [place] [address] 75844- 5672 Nov, Racing heart beat R00.0 [place] [address] 39977- 7467 Nov, Racing heart beat R00.0 [place] [address] 31137- 1514 Nov, [place] [address] 11730- 5688 Nov, care, subsequent in second trimester Z34.82 and 16 weeks gestation of Z3A.16 [place] [address] 73219- 6710 Oct, care in first trimester Z34.91 ; Supervision of other high risk pregnancies, first trimester O09.891 ; 12 weeks gestation of Z3A.12 and Red blood cell antibody positive R76.8 [place] [address] [place] [id number] [place] [address] 11945- 7239 Sep, [place] [address] 03374- 9812 Sep, care in first trimester Z34.91 and 8 weeks gestation of Z3A.08 [place] [address] [address] 08 Sep, 2017 [place] [address] [place] [id number] [place] [address] 59644- 3318 Sep, [place] [address] [place] [id number] [place] [address] 75347- 3435 Sep, [place] [address] [place] [id number] [place] [address] 84201- 4817 Sep, Encounter for test Z32.00 [place] [address] 06591- 5409 Jun, [place] [address] [place] [id number] [place] [address] 97277- 0933 Jun, Infertility counseling Z31.69 [place] [address] [place] [id number] [place] [address] 01491- 6335 Jun, Infertility counseling Z31.69 ; Other obesity due to excess calories E66.09 ; Body mass index (BMI) of 40.0-44.9 in adult Z68.41 and BMI 40.0-44.9, adult Z68.41 [facility]ALK [facility] [place] [id number] [place] [address] 46758 -9006 Apr, Acute suppurative otitis media of right ear with spontaneous rupture of tympanic membrane, recurrence not specified H66.011 [place] [id number] [place] [address] 97476- 8956 Feb, Bacterial conjunctivitis of right eye H10.9 [facility] [place] [id number] [place] [address] 82019 -2441 Nov, Sore throat J02.9 and Acute upper respiratory infection, unspecified J06.9 [place] [id number] [place] [address] 73963- 7046 Oct, Encounter for test Z32.00 [facility] [address] [address] 0417 Sep, [place] [id number] [place] [address] 09634- 0682 Aug, [facility] [id number] [place] [address] 97658 -1548 Aug, Bacterial conjunctivitis of right eye H10.9 [place] [id number] [place] [address] 41955- 1230 Aug, [place] [address] [place] [address] 43748- 6116 Aug, Rheumatoid arthritis involving multiple sites with positive rheumatoid factor M05.79 [place] [id number] [place] [address] 87902- 4798 Aug, Rheumatoid arthritis of multiple sites with negative rheumatoid factor M06.09 [place] [address] [place] [address] 37874- 7413 Jul, Morbid obesity due to excess calories E66.01 [facility] [address] [address] May, Sore throat J02.9 [place] [address] [address] 2177 14 May, 2016 Rheumatoid arthritis involving multiple sites with positive rheumatoid factor M05.79 [place] [address] [address]- 5230 May, [facility] [address] [place] [id number] [address] 28 Apr, 2016 Acute bacterial conjunctivitis of right eye H10.31 [place] [address] [address]- 0742 Feb, Rheumatoid arthritis M06.9 and Rheumatic heart failure I09.81 [facility] [address] [id number] [place] [address] Nov Rheumatoid arthritis M06.9 [facility] [id number] [place] [address] 22825- 7957 Nov, Rheumatoid arthritis M06.9 and Rheumatic heart failure I09.81 [facility] [address] [place] [id number] [place] [address] 17880- 1637 Nov, Left shoulder pain M25.512 ; Rheumatoid arthritis M06.9 and Rheumatic heart failure I09.81 [facility] [address] [place] [id number] [place] [address] 84935- 0643 Aug, Rheumatoid arthritis M06.9 [facility] [address] [place] [id number] [place] [address] 68128 -8290 Aug, Acute bacterial conjunctivitis of right eye H10.021 [place] [address] [place] [id number] [place] [address] 48894- 3575 Jul, Rheumatic heart failure I09.81 [place] [address] [place] [id number] [place] [address] 72548- 5159 Jun, Rheumatoid arthritis M06.9 [place] [address] [place] [id number] [place] [address] 90014- 9259 Jun, Rheumatoid arthritis M06.9 [facility] [place] [address] [place] [id number] [place] [address] 88684 -5644 Jun, Hordeolum external, unspecified laterality H00.019 and Seasonal allergies J30.2 [facility] [address] [place] [id number] [place] [address] 04912 -8771 09 Jun, 2015 Otitis media of both ears H66.93 ; Sore throat J02.9 and Unspecified perforation of tympanic membrane, right ear H72.91 [place] [address] [place] [id number] [place] [address] 18817- 7280 May, Rheumatoid arthritis M06.9 [place] [address] [place] [id number] [place] [address] 86544- 5707 Apr, Rheumatoid arthritis 714.0 [facility] [address] [facility] [id number] [address] 1520 18 Apr, 2015 Bilateral knee pain 719.46 and Routine adult health maintenance V70.0 [facility] [address] [place] [id number] [place] [address] 23823- 5778 17 Apr, 2015 Bilateral knee pain 719.46 ; Routine adult health maintenance V70.0 and Bilateral elbow joint pain 719.42 [facility] [address] [place] [id number] [place] [address] 21700- 1634 17 Mar, 2015 Contraception, generic surveillance V25.40 [facility] [address] [place] [id number] [place] [address] 47100- 9314 14 Mar, 2015 Conjunctivitis 372.30 and Rash 782.1 [facility] [address] [place] [id number] [place] [address] 28176- 5046 14 Mar, 2015 [facility] [address] [place] [id number] [place] [address] 19535- 3874 14 Nov, 2014 [facility] [id number] [place] [address] 15917- 4638 Nov, [facility] [address] [place] [id number] [place] [address] 66862- 7866 18 Oct, 2014 [facility] [address], [place] [address]- 3457 17 Oct, 2014 [facility] [id number] [place] [address] 95505- 0247 17 Oct, 2014 [facility] [address] [address]- 4183 14 Oct, 2014 [facility] [address] [place] [id number] [place] [address] 32706- 6441 14 Oct, 2014 [facility] [address], [place] [address]- 8141 08 Feb, 2014 [facility] [address] [place] [id number] [place] [address] 19041- 3284 Feb, [facility] [address] [id number] [place] [address]- 3593 December, [facility] [place] [facility] [address] [id number] [place] [address]- 1680 December, [facility] [place] [facility] [address] [id number] [place] [address]- 6160 December, [facility] [place] [facility] [address] [id number] [place] [address]- 8108 December, [facility] [place] [facility] [address] [id number] [place] [address]- 3038 December, [facility] [place] [facility] [address] [id number] [place] [address]- 4053 December, [facility] [place] [facility] [address] [id number] [place] [address]- 0463 December, [facility] [place] [facility] [address] [id number] [place] [address]- 9297 Nov, [facility] [place] [facility] [address] [id number] [place] [address]- 7790 Nov, [facility] [place] [facility] [address] [id number] [place] [address]- 7132 Nov, [facility] [place] [facility] [address] [id number] [place] [address]- 8024 Nov, [facility] [place] [facility] [address] [id number] [place] [address]- 1626 Nov, [facility] [place] [facility] [address] [id number] [place] [address]- 6938 Nov, [facility] [place] [facility] [address] [id number] [place] [address]- 1900 Nov, [facility] [place] [facility] [address] [id number] [place] [address]- 8930 Nov, [facility] [place] [facility] [address] [id number] [place] [address]- 7685 Oct, [facility] [place] [facility] [address] [id number] [place] [address]- 0301 Oct, [facility] [place] [facility] [address] [id number] [place] [address]- 1209 Oct, [facility] [place] [facility] [address] [id number] [place] [address]- 0340 Oct, [facility] [place] [facility] [address] [id number] [place] [address]- 3345 Sep, [facility] [place] [facility] [address] [id number] [place] [address]- 2475 Sep, [facility] [place] [facility] [address] [id number] [place] [address]- 2356 Aug, [facility] [place] [facility] [address] [id number] [place] [address]- 1071 Aug, [facility] [place] [facility] [address] [id number] [place] [address]- 7565 Aug, [facility] [place] [facility] [address] [id number] [place] [address]- 9322 Jul, [facility] [place] [facility] [address] [id number] [place] [address]- 9920 Jul, [facility] [place] [facility] [address] [id number] [place] [address]- 2715 Jul, [facility] [place] [facility] [address] [id number] [place] [address]- 3698 Jul, [facility] [place] [facility] [address] [id number] [place] [address]- 2676 Jul, [facility] [place] [facility] [address] [id number] [place] [address]- 7156 Jul, [facility] [place] [facility] [address] [id number] [place] [address]- 2195 Jul, [facility] [place] [facility] [address] [id number] [place] [address]- 9076 Jul, [facility] [place] [facility] [address] [id number] [place] [address]- 8590 Jun, [facility] [place] [facility] [address] [id number] [place] [address]- 1226 May, [facility] [place] [facility] [address] [id number] [place] [address]- 1076 May, [facility] [place] [facility] [address] [id number] [place] [address]- 8901 May, [facility] [place] [facility] [address] [id number] [place] [address]- 1755 May, [facility] [place] [facility] [address] [id number] [place] [address]- 0464 May, [facility] [place] [facility] [address] [id number], [place] [address]- 7380 May, [facility] [place] [facility] [address] [id number] [place] [address]- 6994 May, [facility] [place] [facility] [address] [facility] [id number], [place] [address]- 0587 Aug, [facility] [place] [facility] [address] [id number], [place] [address]- 7964 Aug, [facility] [place] [facility] [address] [id number], [place] [address]- 4092 Aug, [facility] [place] [facility] [address] [id number], [place] [address]- 5453 Jun, [facility] [place] [facility] [address] [id number], [place] [address]- 2416 Jun, [facility] [place] [facility] [address] [facility] [id number], [place] [address]- 2546 Jun, [facility] [place] [facility] [address] [facility] [id number], [place] [address]- 2546 Jun, [facility] [address] [id number] [address] 2546 Jan, [facility] [address] [place] [id number], [place] [address]- 2546 Jul, [facility] [address], [place] [address]- 2546 Jul, [facility] [address], [place] [address]- 2546 May, [facility] [address] [place] [id number], [place] [address]- 4798 May, [facility] [address] [place] [id number], [place] [address] 2546 May, IMMUNIZATIONS No Known Immunizations SOCIAL HISTORY Never Assessed REASON FOR VISIT EKG Results/Orders PLAN OF CARE VITAL SIGNS MEDICATIONS Unknown Medications RESULTS No Results PROCEDURES Procedure Date Ordered Result Body Site HOLTER MONITOR (OUTPATIENT) 2017-12-04 Sinus tach, no arrythmias. INSTRUCTIONS MEDICATIONS ADMINISTERED No Known Medications MEDICAL (GENERAL) HISTORY Type Description Date Medical History Rheumatoid Arthritis Medical History Blood sugars were high pt. placed on Metformin Hospitalization History childbirth only
--- OUTSIDE RECORDS SUMMARY | 2018-04-28 13:18 | XMS REPORT ---
Author Author SWATIDILIP RODRIGUEZ [facility] Address [address] [place] [address] Care Team Providers Care Software Educator Name Role Phone DILIP LONGORIA Unavailable PROBLEMS Type Condition ICD9-CM Code [id number] Code Onset Dates Condition Status SNOMED Code Problem Rheumatoid arthritis involving multiple sites with positive rheumatoid factor M05.79 Active 52559680 Problem Rheumatoid arthritis M06.9 Active 70408642 Problem care, subsequent in third trimester Z34.83 Active 496336997 Problem Vasomotor rhinitis J30.0 Active 8670945 Problem Other obesity due to excess calories E66.09 Active 154066044 Problem Body mass index (BMI) of 40.0-44.9 in adult Z68.41 Active 807121012 Problem Seasonal allergies J30.2 Active 309988479 Problem Obesity complicating , unspecified trimester O99.210 Active [id number] ALLERGIES No Information ENCOUNTERS Encounter Location Date Diagnosis [place] [id number] [place] [address] 50548- 7810 Mar, [place] [id number] [place] [address] 41062- 5102 Feb, care, subsequent in third trimester Z34.83 and 29 weeks gestation of Z3A.29 [place] [id number] [place] [address] 58901- 1022 06 Feb, 2018 BMI 40.0-44.9, adult Z68.41 and care, subsequent in second trimester Z34.82 [place] [address] [place] [id number] [place] [address] 28318- 3468 15 Jan, 2018 Diabetes mellitus screening Z13.[address] 24[address]- 1461 08 Jan, 2018 care, subsequent in second trimester Z34.82 and 23 weeks gestation of Z3A.23 [facility] [address] [address]- [address] 07 Jan, 2018 [facility] [address] [address] -[address] 04 Jan, 2018 Seasonal allergies J30.2 ; Vasomotor rhinitis J30.0 and Sore throat J02.9 [place] [address] 47802- 7333 December, care, subsequent in second trimester Z34.82 ; 20 weeks gestation of Z3A.20 ; Evaluate anatomy not seen on prior sonogram Z04.8 and Diabetes mellitus screening Z13.1 [place] [address] 48317- 3115 Nov, Racing heart beat R00.0 [place] [address] 12333- 5089 Nov, Racing heart beat R00.0 [place] [address] 33547- 8806 Nov, [place] [address] 54136- 2784 Nov, care, subsequent in second trimester Z34.82 and 16 weeks gestation of Z3A.16 [place] [address] 85317- 1346 Oct, care in first trimester Z34.91 ; Supervision of other high risk pregnancies, first trimester O09.891 ; 12 weeks gestation of Z3A.12 and Red blood cell antibody positive R76.8 [place] [address] [place] [id number] [place] [address] 27119- 2283 Sep, [place] [address] 88979- 3657 Sep, care in first trimester Z34.91 and 8 weeks gestation of Z3A.08 [place] [address] [address] 9[address] 08 Sep, 2017 [place] [address] [place] [id number] [place] [address] 71315- 2573 Sep, [place] [address] [place] [id number] [place] [address] 08696- 5303 Sep, [place] [address] [place] [id number] [place] [address] 16943- 7131 Sep, Encounter for test Z32.00 [place] [address] 16031- 3333 Jun, [place] [address] [place] [id number] [place] [address] 99548- 5956 Jun, Infertility counseling Z31.69 [place] [address] [place] [id number] [place] [address] 19548- 7004 Jun, Infertility counseling Z31.69 ; Other obesity due to excess calories E66.09 ; Body mass index (BMI) of 40.0-44.9 in adult Z68.41 and BMI 40.0-44.9, adult Z68.41 [facility] [place] [address] [place] [address] 87275 -6624 Apr, Acute suppurative otitis media of right ear with spontaneous rupture of tympanic membrane, recurrence not specified H66.011 [place] [address] [place] [address] 59865- 1168 Feb, Bacterial conjunctivitis of right eye H10.9 [facility] [place] [id number] [place] [address] 57885 -5822 Nov, Sore throat J02.9 and Acute upper respiratory infection, unspecified J06.9 [place] [address] [place] [address] 07254- 7664 Oct, Encounter for test Z32.00 [facility] [address] [address] 5127 Sep, [place] [id number] [place] [address] 77682- 1101 Aug, [facility] [id number] [place] [address] 52592 -4513 Aug, Bacterial conjunctivitis of right eye H10.9 [place] [address] [place] [address] 30543- 9618 Aug, [place] [address] [place] [address] 60630- 9559 Aug, Rheumatoid arthritis involving multiple sites with positive rheumatoid factor M05.79 [place] [address] [place] [address] 02960- 7794 Aug, Rheumatoid arthritis of multiple sites with negative rheumatoid factor M06.09 [place] [address] [place] [address] 59437- 6777 Jul, Morbid obesity due to excess calories E66.01 [facility] [address] [address] May, Sore throat J02.9 [place] [address] [address]- 7098 14 May, 2016 Rheumatoid arthritis involving multiple sites with positive rheumatoid factor M05.79 [place] [address] [address]- 1812 May, [facility] [address] [place] [id number] [address] 28 Apr, 2016 Acute bacterial conjunctivitis of right eye H10.31 [place] [address] [address]- 7495 Feb, Rheumatoid arthritis M06.9 and Rheumatic heart failure I09.81 [facility] [address] [id number] [place] [address] Nov Rheumatoid arthritis M06.9 [facility] [address] [place] [address] 79944- 1071 Nov, Rheumatoid arthritis M06.9 and Rheumatic heart failure I09.81 [facility] [address] [place] [id number] [place] [address] 84128- 8920 Nov, Left shoulder pain M25.512 ; Rheumatoid arthritis M06.9 and Rheumatic heart failure I09.81 [facility] [address] [place] [id number] [place] [address] 90320- 9368 Aug, Rheumatoid arthritis M06.9 [facility] [address] [place] [id number] [place] [address] 34355 -8884 Aug, Acute bacterial conjunctivitis of right eye H10.021 [place] [address] [place] [id number] [place] [address] 64258- 4445 Jul, Rheumatic heart failure I09.81 [place] [address] [place] [id number] [place] [address] 84121- 6338 Jun, Rheumatoid arthritis M06.9 [place] [address] [place] [id number] [place] [address] 35214- 3253 Jun, Rheumatoid arthritis M06.9 [facility] [place] [address] [place] [id number] [place] [address] 27937 -0449 Jun, Hordeolum external, unspecified laterality H00.019 and Seasonal allergies J30.2 [facility] [address] [place] [id number] [place] [address] 09393 -2523 09 Jun, 2015 Otitis media of both ears H66.93 ; Sore throat J02.9 and Unspecified perforation of tympanic membrane, right ear H72.91 [place] [address] [place] [id number] [place] [address] 24647- 6491 May, Rheumatoid arthritis M06.9 [place] [address] [place] [id number] [place] [address] 12837- 7989 Apr, Rheumatoid arthritis 714.0 [facility] [address] [facility] [id number] [address] 7369 18 Apr, 2015 Bilateral knee pain 719.46 and Routine adult health maintenance V70.0 [facility] [address] [place] [id number] [place] [address] 78263- 1221 17 Apr, 2015 Bilateral knee pain 719.46 ; Routine adult health maintenance V70.0 and Bilateral elbow joint pain 719.42 [facility] [address] [place] [id number] [place] [address] 05363- 0681 17 Mar, 2015 Contraception, generic surveillance V25.40 [facility] [address] [place] [id number] [place] [address] 53344- 8469 14 Mar, 2015 Conjunctivitis 372.30 and Rash 782.1 [facility] [address] [place] [id number] [place] [address] 44389- 4650 14 Mar, 2015 [facility] [address] [place] [id number] [place] [address] 34005- 7787 14 Nov, 2014 [facility] [address] [place] [address] 65602- 1536 Nov, [facility] [address] [place] [id number] [place] [address] 94421- 9183 18 Oct, 2014 [facility] [address] [address]- 7834 17 Oct, 2014 [facility] [address] [place] [address] 19963- 2248 17 Oct, 2014 [facility] [address] [address]- 3439 14 Oct, 2014 [facility] [address] [place] [id number] [place] [address] 61075- 1712 14 Oct, 2014 [facility] [address] [address]- 4723 08 Feb, 2014 [facility] [address] [place] [id number] [place] [address] 20615- 1811 Feb, [facility] [address] [id number] [place] [address]- 0358 December, [facility] [place] [facility] [address] [id number] [place] [address]- 3196 December, [facility] [place] [facility] [address] [id number] [place] [address]- 8626 December, [facility] [place] [facility] [address] [id number] [place] [address]- 7321 December, [facility] [place] [facility] [address] [id number] [place] [address]- 9058 December, [facility] [place] [facility] [address] [id number] [place] [address]- 3744 December, [facility] [place] [facility] [address] [id number] [place] [address]- 1198 December, [facility] [place] [facility] [address] [id number] [place] [address]- 6536 Nov, [facility] [place] [facility] [address] [id number] [place] [address]- 6793 Nov, [facility] [place] [facility] [address] [id number] [place] [address]- 1049 Nov, [facility] [place] [facility] [address] [id number] [place] [address]- 9502 Nov, [facility] [place] [facility] [address] [id number] [place] [address]- 0949 Nov, [facility] [place] [facility] [address] [id number] [place] [address]- 5823 Nov, [facility] [place] [facility] [address] [id number] [place] [address]- 0132 Nov, [facility] [place] [facility] [address] [id number] [place] [address]- 7983 Nov, [facility] [place] [facility] [address] [id number] [place] [address]- 8253 Oct, [facility] [place] [facility] [address] [id number] [place] [address]- 8552 Oct, [facility] [place] [facility] [address] [id number] [place] [address]- 2046 Oct, [facility] [place] [facility] [address] [id number] [place] [address]- 1145 Oct, [facility] [place] [facility] [address] [id number] [place] [address]- 2147 Sep, [facility] [place] [facility] [address] [id number] [place] [address]- 1883 Sep, [facility] [place] [facility] [address] [id number] [place] [address]- 0431 Aug, [facility] [place] [facility] [address] [id number] [place] [address]- 2128 Aug, [facility] [place] [facility] [address] [id number] [place] [address]- 9636 Aug, [facility] [place] [facility] [address] [id number] [place] [address]- 0628 Jul, [facility] [place] [facility] [address] [id number] [place] [address]- 6888 Jul, [facility] [place] [facility] [address] [id number] [place] [address]- 3304 Jul, [facility] [place] [facility] [address] [id number] [place] [address]- 7175 Jul, [facility] [place] [facility] [address] [id number] [place] [address]- 9116 Jul, [facility] [place] [facility] [address] [id number] [place] [address]- 2366 Jul, [facility] [place] [facility] [address] [id number] [place] [address]- 8188 Jul, [facility] [place] [facility] [address] [id number] [place] [address]- 6221 Jul, [facility] [place] [facility] [address] [id number] [place] [address]- 9615 Jun, [facility] [place] [facility] [address] [id number] [place] [address]- 5990 May, [facility] [place] [facility] [address] [id number] [place] [address]- 1092 May, [facility] [place] [facility] [address] [id number] [place] [address]- 0197 May, [facility] [place] [facility] [address] [id number] [place] [address]- 5977 May, [facility] [place] [facility] [address] [id number] [place] [address]- 8004 May, [facility] [place] [facility] [address] [id number] [address]- 9884 May, [facility] [place] [facility] [address] [id number] [place] [address]- 9614 May, [facility] [place] [facility] [address] [facility] [id number] [address]- 8342 Aug, [facility] [place] [facility] [address] [id number] [address]- 0975 Aug, [facility] [place] [facility] [address] [id number] [address]- 2902 Aug, [facility] [place] [facility] [address] [id number], [place] [address]- 6174 Jun, [facility] [place] [facility] [address] [id number] [address]- 6436 Jun, [facility] [place] [facility] [address] [facility] [id number] [address]- 2546 Jun, [facility] [place] [facility] [address] [facility] [id number] [address]- 2546 Jun, [facility] [address] [place] [id number] [address] 2546 Jan, [facility] [address] [place] [id number] [address]- 2546 Jul, [facility] [address] [address]- 2546 Jul, [facility] [address] [address]- 2546 May, [facility] [address] [address]- 1796 May, [facility] [address] [place] [id number] [address] 2546 May, IMMUNIZATIONS No Known Immunizations SOCIAL HISTORY Never Assessed REASON FOR VISIT Electrocardiogram (EKG)--tcuppettRN PLAN OF CARE VITAL SIGNS MEDICATIONS Unknown Medications RESULTS No Results PROCEDURES Procedure Date Ordered Result Body Site EKG, TRACING (IN-HOUSE) 2017-12-04 N/A ELECTROCARDIOGRAM, TRACING December 04, 2017 INSTRUCTIONS MEDICATIONS ADMINISTERED No Known Medications MEDICAL (GENERAL) HISTORY Type Description Date Medical History Rheumatoid Arthritis Medical History Blood sugars were high pt. placed on Metformin Hospitalization History childbirth only
--- OUTSIDE RECORDS SUMMARY | 2018-04-28 13:18 | XMS REPORT ---
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 Name Role Phone DILIP LONGORIA Unavailable PROBLEMS Type Condition ICD9-CM Code QUH48-ZR Code Onset Dates Condition Status SNOMED Code Problem Rheumatoid arthritis involving multiple sites with positive rheumatoid factor M05.79 Active 70093893 Problem Rheumatoid arthritis M06.9 Active 67437088 Problem care, subsequent in third trimester Z34.83 Active 698923059 Problem Vasomotor rhinitis J30.0 Active 8258362 Problem Other obesity due to excess calories E66.09 Active 728006053 Problem Body mass index (BMI) of 40.0-44.9 in adult Z68.41 Active 882186399 Problem Seasonal allergies J30.2 Active 880408644 Problem Obesity complicating , unspecified trimester O99.210 Active [id number] ALLERGIES No Information ENCOUNTERS Encounter Location Date Diagnosis [place] [id number] [place] [address] 83410- 5599 Mar, [place] [id number] [place] [address] 01428- 5806 Feb, care, subsequent in third trimester Z34.83 and 29 weeks gestation of Z3A.29 [place] [id number] [place] [address] 97520- 1358 06 Feb, 2018 BMI 40.0-44.9, adult Z68.41 and care, subsequent in second trimester Z34.82 [place] [address] [place] [id number] [place] [address] 10504- 8232 15 Jan, 2018 Diabetes mellitus screening Z13.[address] [address]- [address] 08 Jan, 2018 care, subsequent in second trimester Z34.82 and 23 weeks gestation of Z3A.23 [facility] [address] [address]- [address] 07 Jan, 2018 [facility] [address] [address] 04 Jan, 2018 Seasonal allergies J30.2 ; Vasomotor rhinitis J30.0 and Sore throat J02.9 [place] [address] 66483- 4139 December, care, subsequent in second trimester Z34.82 ; 20 weeks gestation of Z3A.20 ; Evaluate anatomy not seen on prior sonogram Z04.8 and Diabetes mellitus screening Z13.1 [place] [address] 69783- 3583 Nov, Racing heart beat R00.0 [place] [address] 04065- 2997 Nov, Racing heart beat R00.0 [place] [address] 52754- 0249 Nov, [place] [address] 77473- 2013 Nov, care, subsequent in second trimester Z34.82 and 16 weeks gestation of Z3A.16 [place] [address] 14368- 6445 Oct, care in first trimester Z34.91 ; Supervision of other high risk pregnancies, first trimester O09.891 ; 12 weeks gestation of Z3A.12 and Red blood cell antibody positive R76.8 [place] [address] [place] [id number] [place] [address] 61212- 8619 Sep, [place] [address] 55048- 3652 Sep, care in first trimester Z34.91 and 8 weeks gestation of Z3A.08 [place] [address] [address] 08 Sep, 2017 [place] [address] [place] [id number] [place] [address] 37341- 4047 Sep, [place] [address] [place] [id number] [place] [address] 36855- 8165 Sep, [place] [address] [place] [id number] [place] [address] 63373- 3310 Sep, Encounter for test Z32.00 [place] [address] 42745- 1390 Jun, [place] [address] [place] [id number] [place] [address] 39959- 6540 Jun, Infertility counseling Z31.69 [place] [address] [place] [id number] [place] [address] 95955- 7274 Jun, Infertility counseling Z31.69 ; Other obesity due to excess calories E66.09 ; Body mass index (BMI) of 40.0-44.9 in adult Z68.41 and BMI 40.0-44.9, adult Z68.41 [facility] [place] [address] [place] [address] 26069 -3443 Apr, Acute suppurative otitis media of right ear with spontaneous rupture of tympanic membrane, recurrence not specified H66.011 [place] [address] [place] [address] 69280- 3269 Feb, Bacterial conjunctivitis of right eye H10.9 [facility] [place] [id number] [place] [address] 92323 -2673 Nov, Sore throat J02.9 and Acute upper respiratory infection, unspecified J06.9 [place] [address] [place] [address] 45608- 1518 Oct, Encounter for test Z32.00 [facility] [address], [place] [address] Sep, [place] [address] [place] [address] 59650- 3512 Aug, [facility] [address] [place] [address] 45668 -7339 Aug, Bacterial conjunctivitis of right eye H10.9 [place] [address] [place] [address] 39163- 8301 Aug, [place] [address] [place] [address] 39146- 3357 Aug, Rheumatoid arthritis involving multiple sites with positive rheumatoid factor M05.79 [place] [address] [place] [address] 38030- 3458 Aug, Rheumatoid arthritis of multiple sites with negative rheumatoid factor M06.09 [place] [address] [place] [address] 89388- 6143 Jul, Morbid obesity due to excess calories E66.01 [facility] [address], [place] [address] May, Sore throat J02.9 [place] [address], [place] [address] 8963 14 May, 2016 Rheumatoid arthritis involving multiple sites with positive rheumatoid factor M05.79 [place] [address], [place] [address] 3648 May, [facility] [address] [place] [id number] [address] 28 Apr, 2016 Acute bacterial conjunctivitis of right eye H10.31 [place] [address], [place] [address] 3861 Feb, Rheumatoid arthritis M06.9 and Rheumatic heart failure I09.81 [facility] [id number] [place] [address] Nov Rheumatoid arthritis M06.9 [facility] [address] [place] [address] 19534- 7525 Nov, Rheumatoid arthritis M06.9 and Rheumatic heart failure I09.81 [facility] [address] [place] [id number] [place] [address] 77626- 7470 Nov, Left shoulder pain M25.512 ; Rheumatoid arthritis M06.9 and Rheumatic heart failure I09.81 [facility] [address] [place] [id number] [place] [address] 84210- 0496 Aug, Rheumatoid arthritis M06.9 [facility] [address] [place] [id number] [place] [address] 30266 -5112 Aug, Acute bacterial conjunctivitis of right eye H10.021 [place] [address] [place] [id number] [place] [address] 77660- 2090 Jul, Rheumatic heart failure I09.81 [place] [address] [place] [id number] [place] [address] 34457- 1490 Jun, Rheumatoid arthritis M06.9 [place] [address] [place] [id number] [place] [address] 52795- 0325 Jun, Rheumatoid arthritis M06.9 [facility] [place] [address] [place] [id number] [place] [address] 54765 -8467 Jun, Hordeolum external, unspecified laterality H00.019 and Seasonal allergies J30.2 [facility] [address] [place] [id number] [place] [address] 07551 -2324 09 Jun, 2015 Otitis media of both ears H66.93 ; Sore throat J02.9 and Unspecified perforation of tympanic membrane, right ear H72.91 [place] [address] [place] [id number] [place] [address] 57566- 3151 May, Rheumatoid arthritis M06.9 [place] [address] [place] [id number] [place] [address] 88021- 0040 Apr, Rheumatoid arthritis 714.0 [facility] [address] [facility] [id number] [address] 18 Apr, 2015 Bilateral knee pain 719.46 and Routine adult health maintenance V70.0 [facility] [address] [place] [id number] [place] [address] 50369- 7273 17 Apr, 2015 Bilateral knee pain 719.46 ; Routine adult health maintenance V70.0 and Bilateral elbow joint pain 719.42 [facility] [address] [place] [id number] [place] [address] 70904- 0422 17 Mar, 2015 Contraception, generic surveillance V25.40 [facility] [address] [place] [id number] [place] [address] 95683- 1695 14 Mar, 2015 Conjunctivitis 372.30 and Rash 782.1 [facility] [address] [place] [id number] [place] [address] 75031- 1980 14 Mar, 2015 [facility] [address] [place] [id number] [place] [address] 58143- 2943 14 Nov, 2014 [facility] [address] [place] [address] 45463- 9636 Nov, [facility] [address] [place] [id number] [place] [address] 88986- 5244 18 Oct, 2014 [facility] [address], [place] [address]- 8715 17 Oct, 2014 [facility] [address] [place] [address] 34787- 5889 17 Oct, 2014 [facility] [address], [place] [address]- 5710 14 Oct, 2014 [facility] [address] [place] [id number] [place] [address] 26703- 1286 14 Oct, 2014 [facility] [address], [place] [address]- 3575 08 Feb, 2014 [facility] [address] [place] [id number] [place] [address] 56718- 1121 Feb, [facility] [address] [id number] [place] [address]- 3948 December, [facility] [place] [facility] [address] [id number] [place] [address]- 8847 December, [facility] [place] [facility] [address] [id number] [place] [address]- 4949 December, [facility] [place] [facility] [address] [id number] [place] [address]- 7932 December, [facility] [place] [facility] [address] [id number] [place] [address]- 4439 December, [facility] [place] [facility] [address] [id number] [place] [address]- 3070 December, [facility] [place] [facility] [address] [id number] [place] [address]- 7931 December, [facility] [place] [facility] [address] [id number] [place] [address]- 1818 Nov, [facility] [place] [facility] [address] [id number] [place] [address]- 0088 Nov, [facility] [place] [facility] [address] [id number] [place] [address]- 6135 Nov, [facility] [place] [facility] [address] [id number] [place] [address]- 7526 Nov, [facility] [place] [facility] [address] [id number] [place] [address]- 0317 Nov, [facility] [place] [facility] [address] [id number] [place] [address]- 3944 Nov, [facility] [place] [facility] [address] [id number] [place] [address]- 0248 Nov, [facility] [place] [facility] [address] [id number] [place] [address]- 6276 Nov, [facility] [place] [facility] [address] [id number] [place] [address]- 5883 Oct, [facility] [place] [facility] [address] [id number] [place] [address]- 9859 Oct, [facility] [place] [facility] [address] [id number] [place] [address]- 8499 Oct, [facility] [place] [facility] [address] [id number] [place] [address]- 1916 Oct, [facility] [place] [facility] [address] [id number] [place] [address]- 9835 Sep, [facility] [place] [facility] [address] [id number] [place] [address]- 7227 Sep, [facility] [place] [facility] [address] [id number] [place] [address]- 3058 Aug, [facility] [place] [facility] [address] [id number] [place] [address]- 0420 Aug, [facility] [place] [facility] [address] [id number] [place] [address]- 1815 Aug, [facility] [place] [facility] [address] [id number] [place] [address]- 3758 Jul, [facility] [place] [facility] [address] [id number] [place] [address]- 4755 Jul, [facility] [place] [facility] [address] [id number] [place] [address]- 5404 Jul, [facility] [place] [facility] [address] [id number] [place] [address]- 5741 Jul, [facility] [place] [facility] [address] [id number] [place] [address]- 5906 Jul, [facility] [place] [facility] [address] [id number] [place] [address]- 0316 Jul, [facility] [place] [facility] [address] [id number] [place] [address]- 7345 Jul, [facility] [place] [facility] [address] [id number] [place] [address]- 8367 Jul, [facility] [place] [facility] [address] [id number] [place] [address]- 9423 Jun, [facility] [place] [facility] [address] [id number] [place] [address]- 3286 May, [facility] [place] [facility] [address] [id number] [place] [address]- 4422 May, [facility] [place] [facility] [address] [id number] [place] [address]- 5387 May, [facility] [place] [facility] [address] [id number] [place] [address]- 9943 May, [facility] [place] [facility] [address] [id number] [place] [address]- 3360 May, [facility] [place] [facility] [address] [id number], [place] [address]- 9156 May, [facility] [place] [facility] [address] [id number] [place] [address]- 2473 May, [facility] [place] [facility] [address] [facility] [id number], [place] [address]- 1585 Aug, [facility] [place] [facility] [address] [id number], [place] [address]- 7668 Aug, [facility] [place] [facility] [address] [id number], [place] [address]- 3242 Aug, [facility] [place] [facility] [address] [id number], [place] [address]- 3162 Jun, [facility] [place] [facility] [address] [id number], [place] [address]- 3716 Jun, [facility] [place] [facility] [address] [facility] [id number], [place] [address]- 2546 Jun, [facility] [place] [facility] [address] [facility] [id number], [place] [address]- 2546 Jun, [facility] [address] [place] [id number] [address] 2546 Jan, [facility] [address] [place] [id number], [place] [address]- 2546 Jul, [facility] [address], [place] [address]- 2546 Jul, [facility] [address], [place] [address] 2546 May, [facility] [address] [place] [id number], [place] [address]- 4093 May, [facility] [address] [place] [id number], [place] [address]- 6345 May, IMMUNIZATIONS No Known Immunizations SOCIAL HISTORY Never Assessed REASON FOR VISIT triage--tcuppettRN PLAN OF CARE VITAL SIGNS MEDICATIONS Unknown Medications RESULTS No Results PROCEDURES No Known procedures INSTRUCTIONS MEDICATIONS ADMINISTERED No Known Medications MEDICAL (GENERAL) HISTORY Type Description Date Medical History Rheumatoid Arthritis Medical History Blood sugars were high pt. placed on Metformin Hospitalization History childbirth only
--- OUTSIDE RECORDS SUMMARY | 2018-04-28 13:19 | XMS REPORT ---
Author Author AMI PACHECO [facility] eClinicalWorks Address Unknown Phone Unavailable Care Team Providers Care Pcb Designer Name Role Phone AMI PACHECO CP Unavailable Allergies No Known Allergies Problems Problem Type Condition ICD-9 Code Onset Dates Condition Status Assessment Routine adult health maintenance V70.0 Active Assessment Bilateral knee pain 719.46 Active Medications No Known Medications Procedures Procedure Coding System Code Date ASSAY THYROID STIM HORMONE CPT-4 29109 Apr 27, 2015 COMPLETE CBC W/AUTO DIFF WBC CPT-4 40906 Apr 27, 2015 ANTINUCLEAR ANTIBODIES CPT-4 83472 Apr 27, 2015 VENIPUNCT, ROUTINE* CPT-4 58194 Apr 27, 2015 COMPREHEN METABOLIC PANEL CPT-4 53019 Apr 27, 2015 RHEUMATOID FACTOR, QUANT CPT-4 20493 Apr 27, 2015 RBC SED RATE, AUTOMATED CPT-4 97748 Apr 27, 2015 LIPID PANEL CPT-4 13955 Apr 27, 2015 C-REACTIVE PROTEIN CPT-4 85032 Apr 27, 2015 Results Name Result Date Reference Range Unit Abnormality Flag ROUTINE VENIPUNCTURE Summary Purpose eClinicalWorks Submission
--- OUTSIDE RECORDS SUMMARY | 2018-04-28 13:19 | XMS REPORT ---
Author Author SWATIDILIP RODRIGUEZ [facility] Address [address] [place] [address] Care Team Providers Care Computer Game Designer Name Role Phone DILIP LONGORIA Unavailable PROBLEMS Type Condition ICD9-CM Code ZIF98-ZN Code Onset Dates Condition Status SNOMED Code Problem Rheumatoid arthritis involving multiple sites with positive rheumatoid factor M05.79 Active 05065926 Problem Rheumatoid arthritis M06.9 Active 82330845 Problem care, subsequent in third trimester Z34.83 Active 447313622 Problem Vasomotor rhinitis J30.0 Active 5881756 Problem Other obesity due to excess calories E66.09 Active 373228339 Problem Body mass index (BMI) of 40.0-44.9 in adult Z68.41 Active 524888518 Problem Seasonal allergies J30.2 Active 820593356 Problem Obesity complicating , unspecified trimester O99.210 Active 354525559329 ALLERGIES No Information ENCOUNTERS Encounter Location Date Diagnosis [id number] [place] [address] 28209- 5669 Feb, care, subsequent in third trimester Z34.83 and 29 weeks gestation of Z3A.29 [place] [id number] [place] [address] 69124- 3922 06 Feb, 2018 BMI 40.0-44.9, adult Z68.41 and care, subsequent in second trimester Z34.82 [place] [address] [place] [id number] [place] [address] 74296- 4687 15 Jan, 2018 Diabetes mellitus screening Z13.1 [address] [place] [address] 76902- 6682 08 Jan, 2018 care, subsequent in second trimester Z34.82 and 23 weeks gestation of Z3A.23 [place] [address] [place] [id number] [place] [address] 25421- 6769 07 Jan, 2018 [facility] [id number] [place] [address] 05407 -4526 04 Jan, 2018 Seasonal allergies J30.2 ; Vasomotor rhinitis J30.0 and Sore throat J02.9 [place] [address] 7[address]- 4913 December, care, subsequent in second trimester Z34.82 ; 20 weeks gestation of Z3A.20 ; Evaluate anatomy not seen on prior sonogram Z04.8 and Diabetes mellitus screening Z13.1 [place] [address] 30916- 5179 Nov, Racing heart beat R00.0 [place] [address] 24101- 8473 Nov, Racing heart beat R00.0 [place] [address] 95107- 9830 Nov, [place] [address] [place] [id number] [place] [address] 79241- 0986 Nov, care, subsequent in second trimester Z34.82 and 16 weeks gestation of Z3A.16 [place] [address] [place] [id number] [place] [address] 39510- 5198 Oct, care in first trimester Z34.91 ; Supervision of other high risk pregnancies, first trimester O09.891 ; 12 weeks gestation of Z3A.12 and Red blood cell antibody positive R76.8 [place] [address] [place] [id number] [place] [address] 92862- 4747 Sep, [place] [address] 08678- 9900 Sep, care in first trimester Z34.91 and 8 weeks gestation of Z3A.08 [place] [address] 41510- 2759 Sep, [place] [address] [place] [address] 91128- 4867 Sep, [place] [address] [place] [id number] [place] [address] 36246- 0440 Sep, [place] [address] [place] [id number] [place] [address] 12932- 7258 Sep, Encounter for test Z32.00 [place] [address] [place] [id number] [place] [address] 55965- 4557 Jun, [place] [address] 16013- 5908 Jun, Infertility counseling Z31.69 [place] [address] [place] [id number] [place] [address] 62650- 8777 Jun, Infertility counseling Z31.69 ; Other obesity due to excess calories E66.09 ; Body mass index (BMI) of 40.0-44.9 in adult Z68.41 and BMI 40.0-44.9, adult Z68.41 [facility] [place] [id number] [place] [address] 84671 -2640 Apr, Acute suppurative otitis media of right ear with spontaneous rupture of tympanic membrane, recurrence not specified H66.011 [place] [address] [place] [id number] [place] [address] 81474- 1992 Feb, Bacterial conjunctivitis of right eye H10.9 [facility] [address] [place] [address] 89974 -0132 Nov, Sore throat J02.9 and Acute upper respiratory infection, unspecified J06.9 [place] [address] [place] [address] 91664- 7228 Oct, Encounter for test Z32.00 [place] [address] [place] [id number] [place] [address] 11848- 0735 Sep, [facility] [address] [id number] [address] 9982 Aug, [facility] [address] [place] [address] Aug, Bacterial conjunctivitis of right eye H10.9 [facility] [address] [address]- 6737 Aug, [facility] [address] [place] [address] 03417- 8508 Aug, Rheumatoid arthritis involving multiple sites with positive rheumatoid factor M05.79 [place] [address] [place] [address] 65060- 2324 Aug, Rheumatoid arthritis of multiple sites with negative rheumatoid factor M06.09 [place] [address] [address] 5999 Jul, Morbid obesity due to excess calories E66.01 [facility] [address] [place] [address] May, Sore throat J02.9 [place] [address] [address]- 3133 May, Rheumatoid arthritis involving multiple sites with positive rheumatoid factor M05.79 [place] [address] [place] [address]- 3847 May, [facility] [address] [id number] [address] Apr, Acute bacterial conjunctivitis of right eye H10.31 [facility] [address] [place] [address]- 7853 Feb, Rheumatoid arthritis M06.9 and Rheumatic heart failure I09.81 [facility] [address] [id number] [place] [address] Nov Rheumatoid arthritis M06.9 [facility] [address] [place] [address] 42948- 4241 Nov, Rheumatoid arthritis M06.9 and Rheumatic heart failure I09.81 [facility] [address] [place] [id number] [place] [address] 66335- 7361 Nov, Left shoulder pain M25.512 ; Rheumatoid arthritis M06.9 and Rheumatic heart failure I09.81 [facility] [address] [place] [address] [id number] [place] [address] 54620- 5183 Aug, Rheumatoid arthritis M06.9 [facility] [address] [id number] [place] [address] 44110 -6488 Aug, Acute bacterial conjunctivitis of right eye H10.021 [place] [address] [place] [id number] [place] [address] 35140- 7490 Jul, Rheumatic heart failure I09.81 [place] [address] [place] [id number] [place] [address] 52054- 9099 Jun, Rheumatoid arthritis M06.9 [facility] [id number] [place] [address] 58481- 6198 16 Jun, 2015 Rheumatoid arthritis M06.9 [facility] [address] [id number] [place] [address] 73028 -6081 Jun, Hordeolum external, unspecified laterality H00.019 and Seasonal allergies J30.2 [facility] [address] [place] [id number] [place] [address] 98147 -6155 09 Jun, 2015 Otitis media of both ears H66.93 ; Sore throat J02.9 and Unspecified perforation of tympanic membrane, right ear H72.91 [place] [address] [place] [id number] [place] [address] 96909- 3599 May, Rheumatoid arthritis M06.9 [facility] [address] [id number] [place] [address] 22472- 8629 24 Apr, 2015 Rheumatoid arthritis 714.0 [place] [address] [place] [id number] [place] [address] 26649- 2859 Apr, Bilateral knee pain 719.46 and Routine adult health maintenance V70.0 [facility] [address] [facility] [id number] [place] [address] 79080- 0436 17 Apr, 2015 Bilateral knee pain 719.46 ; Routine adult health maintenance V70.0 and Bilateral elbow joint pain 719.42 [facility] [address] [address]- 6322 17 Mar, 2015 Contraception, generic surveillance V25.40 [facility] [address] [place] [id number] [place] [address] 80864- 2011 14 Mar, 2015 Conjunctivitis 372.30 and Rash 782.1 [facility] [address] [place] [id number] [place] [address] 29805- 6543 14 Mar, 2015 [facility] [address] [place] [id number] [place] [address] 19176- 8967 Nov, [facility] [address] [place] [id number] [place] [address] 48503- 2526 Nov, [facility] [address] [place] [address] 31774- 0224 18 Oct, 2014 [facility] [address] [place] [address] 16244- 5744 Oct, [facility] [address], [place] [address]- 0616 17 Oct, 2014 [facility] [address] [address]- 0853 Oct, [facility] [address] [address]- 7496 Oct, [facility] [address] [id number] [address]- 8446 Feb, [facility] [address] [address]- 8306 Feb, [facility] [address] [place] [id number] [place] [address] 93848- 8792 December, [facility] [address] [id number] [place] [address]- 0421 December, [facility] [place] [facility] [address] [id number] [place] [address]71 December, [facility] [place] [facility] [address] [id number] [place] [address]- 0737 December, [facility] [place] [facility] [address] [id number] [place] [address]- 5938 December, [facility] [place] [facility] [address] [id number] [place] [address]- 8850 December, [facility] [place] [facility] [address] [id number] [place] [address]- 8285 December, [facility] [place] [facility] [address] [id number] [place] [address]- 0521 Nov, [facility] [place] [facility] [address] [id number] [place] [address]- 2681 Nov, [facility] [place] [facility] [address] [id number] [place] [address]- 8697 Nov, [facility] [place] [facility] [address] [id number] [place] [address]- 3269 Nov, [facility] [place] [facility] [address] [id number] [place] [address]- 1627 Nov, [facility] [place] [facility] [address] [id number] [place] [address]- 9984 Nov, [facility] [place] [facility] [address] [id number] [place] [address]- 9899 Nov, [facility] [place] [facility] [address] [id number] [place] [address]- 8493 Nov, [facility] [place] [facility] [address] [id number] [place] [address]- 1605 Oct, [facility] [place] [facility] [address] [id number] [place] [address]- 3506 Oct, [facility] [place] [facility] [address] [id number] [place] [address]- 6222 Oct, [facility] [place] [facility] [address] [id number] [place] [address]- 5080 Oct, [facility] [place] [facility] [address] [id number] [place] [address]- 8053 Sep, [facility] [place] [facility] [address] [id number] [place] [address]- 0993 Sep, [facility] [place] [facility] [address] [id number] [place] [address]- 7794 Aug, [facility] [place] [facility] [address] [id number] [place] [address]- 4253 Aug, [facility] [place] [facility] [address] [id number] [place] [address]- 8958 Aug, [facility] [place] [facility] [address] [id number] [place] [address]- 5662 Jul, [facility] [place] [facility] [address] [id number] [place] [address]- 8607 Jul, [facility] [place] [facility] [address] [facility] [id number] [place] [address]- 8915 Jul, [facility] [place] [facility] [address] [id number] [place] [address]- 3540 Jul, [facility] [place] [facility] [address] [id number] [place] [address]- 6928 Jul, [facility] [place] [facility] [address] [id number] [place] [address]- 4307 Jul, [facility] [place] [facility] [address] [id number] [place] [address]- 8460 Jul, [facility] [place] [facility] [address] [id number] [place] [address]- 5302 Jul, [facility] [place] [facility] [address] [id number] [place] [address]- 9007 Jun, [facility] [place] [facility] [address] [id number] [place] [address]- 7316 May, [facility] [place] [facility] [address] [id number] [place] [address]- 8783 May, [facility] [place] [facility] [address] [id number] [place] [address]- 8585 May, [facility] [place] [facility] [address] [id number] [place] [address]- 7183 May, [facility] [place] [facility] [address] [id number] [place] [address]- 0983 May, [facility] [place] [facility] [address] [id number] [place] [address]- 6098 May, [facility] [place] [facility] [address] [id number] [place] [address]- 0311 May, [facility] [place] [facility] [address] [id number] [place] [address]- 3730 Aug, [facility] [place] [facility] [address] [id number], [place] [address]- 5590 Aug, [facility] [place] [facility] [address] [id number], [place] [address]- 4510 Aug, [facility] [place] [facility] [address] [id number], [place] [address]- 0729 Jun, [facility] [place] [facility] [address] [id number] [place] [address]- 0425 Jun, [facility] [place] [facility] [address] [id number], [place] [address]- 9871 Jun, [facility] [place] [facility] [address] [facility] [id number], [place] [address]- 1628 Jun, [facility] [place] [facility] [address] [facility] [id number] [place] [address] 2547 Jan, [facility] [address] [facility] [id number], [place] [address]- 3957 Jul, [facility] [address] [facility] [id number], [place] [address]- 8136 Jul, [facility] [address] [facility] [id number], [place] [address]- 1410 May, [facility] [address] [facility] [id number], [place] [address]- 8950 May, [facility] [address] [facility] [id number], [place] [address]- 6782 May, IMMUNIZATIONS No Known Immunizations SOCIAL HISTORY Never Assessed REASON FOR VISIT OB 4wk f/u -- dunia márquez PLAN OF CARE Activity Details Follow Up 4 Weeks Reason: VITAL SIGNS Height 65 in 2017-10-28 Weight 235.6 lbs 2017-10-28 Temperature 98.0 degrees Fahrenheit 2017-10-28 Heart Rate 92 bpm 2017-10-28 Respiratory Rate 22 2017-10-28 BMI 39.206 kg/m2 2017-10-28 Blood pressure systolic 124 mmHg 2017-10-28 Blood pressure diastolic 84 mmHg 2017-10-28 MEDICATIONS Medication Instructions Dosage Frequency Start Date End Date Duration Status Active RESULTS Name Result Date Reference Range UA OB DIP (IN HOUSE) 2017-10-28 Glucose neg Protein trace PROCEDURES Procedure Date Ordered Result Body Site URINE-NO MICRO October 28, 2017 INSTRUCTIONS MEDICATIONS ADMINISTERED No Known Medications MEDICAL (GENERAL) HISTORY Type Description Date Medical History Rheumatoid Arthritis Medical History Blood sugars were high pt. placed on Metformin Hospitalization History childbirth only
--- OUTSIDE RECORDS SUMMARY | 2018-04-28 13:20 | XMS REPORT ---
Author Author CHILO RG [facility] Address [address] [place] [address] Care Team Providers Care Recreation Therapy Director Name Role Phone CHILO RG Unavailable PROBLEMS Type Condition ICD9-CM Code [id number] Code Onset Dates Condition Status SNOMED Code Problem Rheumatoid arthritis of multiple sites with negative rheumatoid factor M06.09 Active 719545680 Problem Morbid obesity due to excess calories E66.01 Active 229572717 Problem Rheumatoid arthritis M06.9 Active 31188110 Problem Rheumatoid arthritis involving multiple sites with positive rheumatoid factor M05.79 Active 93212240 Problem Rheumatic heart failure I09.81 Active 40354954 ALLERGIES Substance Reaction Event Type Date Status N.K.D.A. Unknown Non Drug Allergy Aug, Unknown SOCIAL HISTORY No smoking Hx information available PLAN OF CARE VITAL SIGNS Height 65 in 2016-08-27 Weight 229.0 lbs 2016-08-27 Temperature 97.2 degrees Fahrenheit 2016-08-27 Heart Rate 80 bpm 2016-08-27 Respiratory Rate 18 2016-08-27 BMI 38.10 kg/m2 2016-08-27 Blood pressure systolic 128 mmHg 2016-08-27 Blood pressure diastolic 72 mmHg 2016-08-27 MEDICATIONS Medication Instructions Dosage Frequency Start Date End Date Duration Status Gentamicin Sulfate 0.3 % Ophthalmic every 4 hrs 1 drop into affected eye 4h Aug, 07 days Active NuvaRing 0.12-0.015 MG/24HR 1 ring 28 Active RESULTS No Results PROCEDURES Procedure Date Ordered Related Diagnosis Body Site Office Visit, Est Pt., Level 3 Aug 27, 2016 IMMUNIZATIONS No Known Immunizations
--- OUTSIDE RECORDS SUMMARY | 2018-04-28 13:20 | XMS REPORT ---
Author Author JESE HEARN [facility] eClinical[employer] Address Unknown Phone Unavailable Care Team Providers Care Diazo Technician Name Role Phone JESE HEARN Unavailable Allergies No Known Allergies Problems Problem Type Condition Code Onset Dates Condition Status Problem Rheumatic heart failure I09.81 Active Problem Rheumatoid arthritis M06.9 Active Problem Rheumatoid arthritis involving multiple sites with positive rheumatoid factor M05.79 Active Assessment Rheumatoid arthritis involving multiple sites with positive rheumatoid factor M05.79 Active Medications No Known Medications Procedures Procedure Coding System Code Date ACUTE HEPATITIS PANEL CPT-4 08232 May 23, 2016 VENIPUNCT, ROUTINE* CPT-4 90651 May 23, 2016 COMPLETE CBC W/AUTO DIFF WBC CPT-4 77985 May 23, 2016 HEPATIC FUNCTION PANEL CPT-4 96863 May 23, 2016 Results Name Result Date Reference Range Unit Abnormality Flag ROUTINE VENIPUNCTURE Summary Purpose eClinicalWorks Submission
--- OUTSIDE RECORDS SUMMARY | 2018-04-28 13:20 | XMS REPORT ---
Author Author JESE HEARN [facility] eClinicalWorks Address Unknown Phone Unavailable Care Team Providers Care Wind Operations Manager Name Role Phone JESE HEARN Unavailable Allergies No Known Allergies Problems Problem Type Condition Code Onset Dates Condition Status Problem Rheumatoid arthritis M06.9 Active Assessment Rheumatoid arthritis M06.9 Active Problem Rheumatic heart failure I09.81 Active Assessment Rheumatic heart failure I09.81 Active Medications No Known Medications Procedures Procedure Coding System Code Date COMPLETE CBC W/AUTO DIFF WBC CPT-4 19440 December 03, 2015 VENIPUNCT, ROUTINE* CPT-4 02309 December 03, 2015 RBC SED RATE, NONAUTOMATED CPT-4 84605 December 03, 2015 Results Name Result Date Reference Range Unit Abnormality Flag ROUTINE VENIPUNCTURE ESR/SED RATE (IN HOUSE) ----Lot # [id number] ----Exp Date 10/07/[id number] 0 - 20 mm ----SED/ESR RATE 38 [id number] Summary Purpose eClinicalWorks Submission
--- OUTSIDE RECORDS SUMMARY | 2018-04-28 13:20 | XMS REPORT ---
Author Author GARY RODRIGUEZ [facility] Address [address] [place] [address] Care Team Providers Care Tax Services Professional Name Role Phone GARY RODRIGUEZ Unavailable PROBLEMS Type Condition ICD9-CM Code [id number] Code Onset Dates Condition Status SNOMED Code Problem Rheumatoid arthritis of multiple sites with negative rheumatoid factor M06.09 Active 013885641 Problem Morbid obesity due to excess calories E66.01 Active 471949174 Problem Rheumatoid arthritis M06.9 Active 45011969 Problem Rheumatoid arthritis involving multiple sites with positive rheumatoid factor M05.79 Active 88935700 Problem Rheumatic heart failure I09.81 Active 28152934 ALLERGIES No Information SOCIAL HISTORY Never Assessed PLAN OF CARE VITAL SIGNS MEDICATIONS Unknown Medications RESULTS Name Result Date Reference Range TEST, URINE (IN HOUSE) 2016-10-14 RESULTS Negative Lot # [id number] Control + Exp date PROCEDURES Procedure Date Ordered Result Body Site URINE TEST October 14, 2016 IMMUNIZATIONS No Known Immunizations MEDICAL (GENERAL) HISTORY Type Description Date Medical History Rheumatoid Arthritis Hospitalization History childbirth only
--- OUTSIDE RECORDS SUMMARY | 2018-04-28 13:20 | XMS REPORT ---
Author Author JESE HEARN Organization [facility] Address [address] [place] [address] Care Team Providers Care Exercise Equipment Specialist Name Role Phone JESE HEARN Unavailable PROBLEMS Type Condition ICD9-CM Code GAP92-WC Code Onset Dates Condition Status SNOMED Code Problem Rheumatoid arthritis of multiple sites with negative rheumatoid factor M06.09 Active 053716836 Problem Morbid obesity due to excess calories E66.01 Active 049329020 Problem Rheumatoid arthritis M06.9 Active 09532822 Problem Rheumatoid arthritis involving multiple sites with positive rheumatoid factor M05.79 Active 91842982 Problem Rheumatic heart failure I09.81 Active 45967206 ALLERGIES Unknown Allergies SOCIAL HISTORY No smoking Hx information available PLAN OF CARE VITAL SIGNS MEDICATIONS Unknown Medications RESULTS No Results PROCEDURES Procedure Date Ordered Related Diagnosis Body Site COMPLETE CBC W/AUTO DIFF WBC Aug 25, 2016 HEPATIC FUNCTION PANEL Aug 25, 2016 IMMUNIZATIONS No Known Immunizations
--- OUTSIDE RECORDS SUMMARY | 2018-04-28 13:20 | XMS REPORT ---
Author Author CHILO RG Organization [facility] Address [address] [place] [address] Care Team Providers Care [place] Operator Name Role Phone CHILO RG Unavailable PROBLEMS Type Condition ICD9-CM Code IGD15-EU Code Onset Dates Condition Status SNOMED Code Problem Rheumatoid arthritis M06.9 Active 54134050 Problem Other obesity due to excess calories E66.09 Active 922200289 Problem Body mass index (BMI) of 40.0-44.9 in adult Z68.41 Active 545214901 Problem Rheumatoid arthritis involving multiple sites with positive rheumatoid factor M05.79 Active 11111403 Problem Rheumatic heart failure I09.81 Active 46744060 Problem Rheumatoid arthritis of multiple sites with negative rheumatoid factor M06.09 Active 332707862 Problem Morbid obesity due to excess calories E66.01 Active 424143416 ALLERGIES No Known Allergies ENCOUNTERS Encounter Location Date Diagnosis [facility] [id number] [place] [address] 69335- 2918 December, [facility] [id number] [place] [address] 38932- 5430 Nov, Racing heart beat R00.0 [place] [id number] [place] [address] 18833- 8966 Nov, Racing heart beat R00.0 [facility] [id number] [place] [address] 21532- 7811 Nov, [facility] [id number] [place] [address] 43950- 1172 Nov, care, subsequent in second trimester Z34.82 and 16 weeks gestation of Z3A.16 [facility] [id number] [place] [address] 92084- 4646 Oct, care in first trimester Z34.91 ; Supervision of other high risk pregnancies, first trimester O09.891 ; 12 weeks gestation of Z3A.12 and Red blood cell antibody positive R76.8 [place] [address] [address]42- 3605 Sep, [facility] [address] [address]- 1974 Sep, care in first trimester Z34.91 and 8 weeks gestation of Z3A.08 [facility] [id number] [place] [address] 25683- 2527 Sep, [place] [address] 09410- 1203 Sep, [place] [address] 63652- 8332 Sep, [place] [address] 80769- 6501 Sep, Encounter for test Z32.00 [place] [address] 69187- 4061 Jun, [place] [address] 19394- 4157 Jun, Infertility counseling Z31.69 [place] [address] 70948- 2105 Jun, Infertility counseling Z31.69 ; Other obesity due to excess calories E66.09 ; Body mass index (BMI) of 40.0-44.9 in adult Z68.41 and BMI 40.0-44.9, adult Z68.41 [facility] [id number] [place] [address] 02902 -6118 Apr, Acute suppurative otitis media of right ear with spontaneous rupture of tympanic membrane, recurrence not specified H66.011 [place] [address] 20631- 9546 Feb, Bacterial conjunctivitis of right eye H10.9 [facility] [address] [place] [address] 95482 -3925 Nov, Sore throat J02.9 and Acute upper respiratory infection, unspecified J06.9 [facility] [address] [place] [address] 17137- 6082 07 Oct, 2016 Encounter for test Z32.00 [facility] [id number] [place] [address] 62644- 2002 Sep, [facility] [id number] [place] [address] 50888- 3691 Aug, [facility] [id number] [place] [address] 45124 -0999 Aug, Bacterial conjunctivitis of right eye H10.9 [facility] [id number] [place] [address] 65029- 9254 16 Aug, 2016 [facility] [id number] [place] [address] 96345- 3094 Aug, Rheumatoid arthritis involving multiple sites with positive rheumatoid factor M05.79 [place] [id number] [place] [address] 90872- 0150 Aug, Rheumatoid arthritis of multiple sites with negative rheumatoid factor M06.09 [place] [address] [place] [address] 59982- 2247 Jul, Morbid obesity due to excess calories E66.01 [facility] [address] [address] May, Sore throat J02.9 [facility] [id number] [place] [address] 68752- 3917 14 May, 2016 Rheumatoid arthritis involving multiple sites with positive rheumatoid factor M05.79 [facility] [id number] [place] [address] 76269- 7634 May, [facility] [address] [address] Apr, Acute bacterial conjunctivitis of right eye H10.31 [facility] [address] [address] 8067 Feb, Rheumatoid arthritis M06.9 and Rheumatic heart failure I09.81 [place] [id number] [address] Nov Rheumatoid arthritis M06.9 [facility] [address] [place] [address] 86345- 3557 Nov, Rheumatoid arthritis M06.9 and Rheumatic heart failure I09.81 [place] [address] [place] [address] 05864- 2542 Nov, Left shoulder pain M25.512 ; Rheumatoid arthritis M06.9 and Rheumatic heart failure I09.81 [facility] [address] [place] [address] 39087- 0859 Aug, Rheumatoid arthritis M06.9 [facility] [address] [place] [address] 98306 -1689 Aug, Acute bacterial conjunctivitis of right eye H10.021 [facility] [address] [place] [address] 36761- 1161 Jul, Rheumatic heart failure I09.81 [facility] [address] [place] [address] 80843- 7876 Jun, Rheumatoid arthritis M06.9 [facility] [address] [place] [address] 09558- 9207 Jun, Rheumatoid arthritis M06.9 [facility] [address] [place] [address] 72481 -9469 13 Jun, 2015 Hordeolum external, unspecified laterality H00.019 and Seasonal allergies J30.2 [facility] [address] [place] [address] 00846 -4497 Jun, Otitis media of both ears H66.93 ; Sore throat J02.9 and Unspecified perforation of tympanic membrane, right ear H72.91 [facility] [id number] [place] [address] 92114- 5927 May, Rheumatoid arthritis M06.9 [facility] [id number] [place] [address] 91962- 2100 24 Apr, 2015 Rheumatoid arthritis 714.0 [facility] [id number] [place] [address] 66427- 1006 18 Apr, 2015 Bilateral knee pain 719.46 and Routine adult health maintenance V70.0 [place] [id number] [place] [address] 98699- 4884 17 Apr, 2015 Bilateral knee pain 719.46 ; Routine adult health maintenance V70.0 and Bilateral elbow joint pain 719.42 [place] [id number] [place] [address] 69374- 1704 Mar, Contraception, generic surveillance V25.40 [place] [id number] [place] [address] 86393- 0098 Mar, Conjunctivitis 372.30 and Rash 782.1 [facility] [id number] [place] [address] 07812- 9972 Mar, [place] [id number] [place] [address] 80530- 1031 Nov, [facility] [id number] [place] [address] 89947- 7700 Nov, [facility] [id number] [place] [address] 01068- 1990 18 Oct, 2014 [facility] [id number] [place] [address] 81335- 5601 Oct, [facility] [id number] [place] [address] 19636- 9572 Oct, [facility] [place] [facility] [address] [id number] [place] [address]- 4368 14 Oct, 2014 [facility] [place] [facility] [address] [id number] [place] [address]- 3068 Oct, [facility] [place] [facility] [address] [id number] [place] [address]- 1049 Feb, [facility] [place] [facility] [address] [id number] [place] [address]- 2411 Feb, [facility] [place] [facility] [address] [id number] [place] [address]- 9888 December, [facility] [place] [facility] [address] [id number] [place] [address]- 2228 December, [facility] [place] [facility] [address] [id number] [place] [address]- 7568 December, [facility] [place] [facility] [address] [id number] [place] [address]- 7331 December, [facility] [place] [facility] [address] [id number] [place] [address]- 4902 December, [facility] [place] [facility] [address] [id number] [place] [address]- 6093 December, [facility] [place] [facility] [address] [id number] [place] [address]- 2880 December, [facility] [place] [facility] [address] [id number] [place] [address]- 7150 Nov, [facility] [place] [facility] [address] [id number] [place] [address]- 9427 Nov, [facility] [place] [facility] [address] [id number] [place] [address]- 5618 Nov, [facility] [place] [facility] [address] [id number] [place] [address]- 9636 Nov, [facility] [place] [facility] [address] [id number] [place] [address]- 4813 Nov, [facility] [place] [facility] [address] [id number] [place] [address]- 0047 Nov, [facility] [place] [facility] [address] [id number] [place] [address]- 3132 Nov, [facility] [place] [facility] [address] [facility] [id number] [place] [address]- 6771 Nov, [facility] [place] [facility] [address] [id number] [place] [address]- 5629 Oct, [facility] [place] [facility] [address] [id number] [place] [address]- 1956 Oct, [facility] [place] [facility] [address] [id number] [place] [address]- 5429 Oct, [facility] [place] [facility] [address] [facility] [id number] [place] [address]- 0270 Oct, [facility] [place] [facility] [address] [id number] [place] [address]- 6622 Sep, [facility] [place] [facility] [address] [id number] [place] [address]- 2209 Sep, [facility] [place] [facility] [address] [facility] [id number] [place] [address]- 2296 Aug, [facility] [place] [facility] [address] [facility] [id number] [address]- 9368 Aug, [facility] [place] [facility] [address] [id number] [address]- 2285 Aug, [facility] [place] [facility] [address] [id number] [place] [address]- 6415 Jul, [facility] [place] [facility] [address] [facility] [id number] [place] [address]- 1493 Jul, [facility] [place] [facility] [address] [facility] [id number] [place] [address]- 6056 Jul, [facility] [place] [facility] [address] [id number] [place] [address]- 2544 Jul, [facility] [address] [id number] [place] [address]- 1704 Jul, [facility] [place] [facility] [address] [id number] [place] [address]- 2546 Jul, [facility] [address] [id number] [place] [address]- 6094 Jul, [facility] [place] [facility] [address] [id number] [place] [address]- 2540 Jul, [facility] [place] [facility] [address] [id number] [place] [address]- 2581 Jun, [facility] [place] [facility] [address] [id number] [place] [address]- 3461 May, [facility] [address] [id number] [place] [address]- 6943 May, [facility] [address] [id number] [place] [address]- 8144 May, [facility] [place] [facility] [address] [id number] [place] [address]- 0542 May, [facility] [address] [id number] [place] [address]- 4059 May, [facility] [place] [facility] [address] [id number] [place] [address]- 8521 May, [facility] [place] [facility] [address] [id number] [place] [address]- 2543 May, [facility] [place] [facility] [address] [id number] [place] [address]- 3207 Aug, [facility] [place] [facility] [address] [id number] [place] [address]- 2546 Aug, [facility] [place] [facility] [address] [id number] [place] [address]- 5112 Aug, [facility] [id number] [address]- 8954 Jun, [facility] [address] [place] [address]- 6026 Jun, [facility] [address] [address] 2543 Jun, [facility] [address] [place] [address] 2540 Jun, [facility] [address] [address]- 9208 Jan, [facility] [address] [address]- 7403 Jul, [facility] [address], [place] [address]- 7904 Jul, [facility] [address] [address]- 1537 May, [facility] [address] [address]- 4703 May, [facility] [id number] [address]- 9754 May, IMMUNIZATIONS No Known Immunizations SOCIAL HISTORY Never Assessed REASON FOR VISIT Right ear pain started Th JStrasserRN PLAN OF CARE Activity Details Follow Up 2 Weeks Reason:ruptured ear drum VITAL SIGNS Height 65 in 2017-05-02 Weight 237.0 lbs 2017-05-02 Temperature 97.5 degrees Fahrenheit 2017-05-02 Heart Rate 88 bpm 2017-05-02 Respiratory Rate 20 2017-05-02 BMI 39.43 kg/m2 2017-05-02 Blood pressure systolic 110 mmHg 2017-05-02 Blood pressure diastolic 70 mmHg 2017-05-02 MEDICATIONS Medication Instructions Dosage Frequency Start Date End Date Duration Status Amoxicillin 500 mg Orally 3 times a day 1 capsule 8h Apr, May, 10 day(s) Active RESULTS No Results PROCEDURES No Known procedures INSTRUCTIONS MEDICATIONS ADMINISTERED No Known Medications MEDICAL (GENERAL) HISTORY Type Description Date Medical History Rheumatoid Arthritis Medical History Blood sugars were high pt. placed on Metformin Hospitalization History childbirth only
--- OUTSIDE RECORDS SUMMARY | 2018-04-28 13:20 | XMS REPORT ---
Author Author SWATI DIL[facility] Address [address] [place] [address] Care Team Providers Care Park Manager Name Role Phone TORITO LONGORIAY Unavailable PROBLEMS Type Condition ICD9-CM Code [id number] Code Onset Dates Condition Status SNOMED Code Problem Rheumatoid arthritis involving multiple sites with positive rheumatoid factor M05.79 Active 46604473 Problem Rheumatoid arthritis M06.9 Active 31276129 Problem Vasomotor rhinitis J30.0 Active 0796826 Problem Seasonal allergies J30.2 Active 995832910 Problem Body mass index (BMI) of 40.0-44.9 in adult Z68.41 Active 640526639 Problem Other obesity due to excess calories E66.09 Active 140794041 Problem care, subsequent in second trimester Z34.82 Active 850544539 Problem Obesity complicating , unspecified trimester O99.210 Active [id number] ALLERGIES No Known Allergies ENCOUNTERS Encounter Location Date Diagnosis [facility] [place] [id number] [place] [address] 45136- 8220 Feb, 2018 BMI 40.0-44.9, adult Z68.41 and care, subsequent in second trimester Z34.82 [facility] [place] [id number] [place] [address] 45641- 6127 15 Jan, 2018 Diabetes mellitus screening Z13.1 [facility] [place] [address] [place] [id number] [place] [address] 38154- 5466 08 Jan, 2018 care, subsequent in second trimester Z34.82 and 23 weeks gestation of Z3A.23 [facility] [place] [id number] [place] [address] 99435- 1187 07 Jan, 2018 [facility] [id number] [place] [address] 52538 -7826 Jan, Seasonal allergies J30.2 ; Vasomotor rhinitis J30.0 and Sore throat J02.9 [place] [address] 54239- 7885 December, care, subsequent in second trimester Z34.82 ; 20 weeks gestation of Z3A.20 ; Evaluate anatomy not seen on prior sonogram Z04.8 and Diabetes mellitus screening Z13.1 [place] [address] 03672- 2958 Nov, Racing heart beat R00.0 [place] [address] 27688- 2990 Nov, Racing heart beat R00.0 [place] [address] 60000- 3821 Nov, [place] [address] 27595- 3642 Nov, care, subsequent in second trimester Z34.82 and 16 weeks gestation of Z3A.16 [place] [address] 52830- 4399 Oct, care in first trimester Z34.91 ; Supervision of other high risk pregnancies, first trimester O09.891 ; 12 weeks gestation of Z3A.12 and Red blood cell antibody positive R76.8 [place] [address] 43264- 6584 Sep, [place] [address] 33205- 2281 Sep, care in first trimester Z34.91 and 8 weeks gestation of Z3A.08 [place] [address] 54438- 0968 Sep, [place] [address] 31283- 9930 Sep, [place] [address] [place] [address] 97983- 1287 Sep, [place] [id number] [place] [address] 96296- 4219 Sep, Encounter for test Z32.00 [place] [id number] [place] [address] 20968- 1899 Jun, [place] [address] 04796- 3719 Jun, Infertility counseling Z31.69 [place] [id number] [place] [address] 50701- 4040 Jun, Infertility counseling Z31.69 ; Other obesity due to excess calories E66.09 ; Body mass index (BMI) of 40.0-44.9 in adult Z68.41 and BMI 40.0-44.9, adult Z68.41 [facility] [place] [id number] [place] [address] 64800 -5192 Apr, Acute suppurative otitis media of right ear with spontaneous rupture of tympanic membrane, recurrence not specified H66.011 [place] [id number] [place] [address] 09805- 8329 Feb, Bacterial conjunctivitis of right eye H10.9 [facility] [place] [id number] [place] [address] 45907 -8877 Nov, Sore throat J02.9 and Acute upper respiratory infection, unspecified J06.9 [place] [address] [place] [address] 89179- 2499 Oct, Encounter for test Z32.00 [place] [id number] [place] [address] 73740- 6074 Sep, [place] [id number] [place] [address] 50304- 0553 Aug, [facility] [place] [address] 26281 -9567 Aug, Bacterial conjunctivitis of right eye H10.9 [facility] [place] [address] [address] 48[address] Aug, [facility] [place] [address] [place] [address] 57222- 6336 16 Aug, 2016 Rheumatoid arthritis involving multiple sites with positive rheumatoid factor M05.79 [facility] [place] [address] [place] [address] 59322- 9272 16 Aug, 2016 Rheumatoid arthritis of multiple sites with negative rheumatoid factor M06.09 [place] [address] [place] [address] 89920- 7257 Jul, Morbid obesity due to excess calories E66.01 [facility] [address] [address] May, Sore throat J02.9 [facility] [place] [address] [place] [address] 03225- 9153 May, Rheumatoid arthritis involving multiple sites with positive rheumatoid factor M05.79 [place] [address] [place] [address] 97669- 7251 May, [facility] [address] [address] 28 Apr, 2016 Acute bacterial conjunctivitis of right eye H10.31 [facility] [place] [address] [address]- 5620 Feb, Rheumatoid arthritis M06.9 and Rheumatic heart failure I09.81 [facility] [address] [id number] [place] [address] Nov Rheumatoid arthritis M06.9 [facility] [place] [address] [address]- 4131 Nov, Rheumatoid arthritis M06.9 and Rheumatic heart failure I09.81 [facility] [place] [address] [address]- 9572 Nov, Left shoulder pain M25.512 ; Rheumatoid arthritis M06.9 and Rheumatic heart failure I09.81 [place] [address] 77459- 8208 Aug, Rheumatoid arthritis M06.9 [facility] [id number] [place] [address] 80922 -5775 Aug, Acute bacterial conjunctivitis of right eye H10.021 [place] [address] 19047- 7301 Jul, Rheumatic heart failure I09.81 [place] [address] 00322- 2573 Jun, Rheumatoid arthritis M06.9 [place] [address] 27363- 0003 16 Jun, 2015 Rheumatoid arthritis M06.9 [facility] [place] [address] 09557 -2549 Jun, Hordeolum external, unspecified laterality H00.019 and Seasonal allergies J30.2 [facility] [place] [address] 35835 -6550 09 Jun, 2015 Otitis media of both ears H66.93 ; Sore throat J02.9 and Unspecified perforation of tympanic membrane, right ear H72.91 [place] [id number] [place] [address] 56868- 0897 May, Rheumatoid arthritis M06.9 [place] [id number] [place] [address] 73496- 1987 24 Apr, 2015 Rheumatoid arthritis 714.0 [place] [address] 04578- 2164 18 Apr, 2015 Bilateral knee pain 719.46 and Routine adult health maintenance V70.0 [place] [address] 63706- 0617 17 Apr, 2015 Bilateral knee pain 719.46 ; Routine adult health maintenance V70.0 and Bilateral elbow joint pain 719.42 [facility] [place] [address] [address] 8018 17 Mar, 2015 Contraception, generic surveillance V25.40 [facility] [place] [id number] [address]- 2660 14 Mar, 2015 Conjunctivitis 372.30 and Rash 782.1 [facility] [place] [address] [facility] [id number] [place] [address] 93477- 1533 14 Mar, 2015 [facility] [place] [id number] [place] [address] 59281- 5514 Nov, [facility] [place] [id number] [place] [address] 08304- 8339 Nov, [facility] [place] [id number] [place] [address] 99550- 3748 18 Oct, 2014 [facility] [place] [id number] [address]- 9079 Oct, [facility] [place] [address] [address]- 4294 Oct, [facility] [place] [address] [address]- 5852 Oct, [facility] [place] [address] [address]- 5528 Oct, [facility] [place] [address] [address]- 9889 Feb, [facility] [place] [address] [address]- 2639 Feb, [facility] [place] [address] [address]- 2133 December, [facility] [place] [address] [address]- 0535 December, [facility] [place] [facility] [address] [id number] [place] [address]- 5826 December, [facility] [address] [id number] [place] [address]- 0393 December, [facility] [place] [facility] [address] [id number] [place] [address]- 7116 December, [facility] [address] [id number] [place] [address]- 1276 December, [facility] [address] [id number] [place] [address]- 1378 December, [facility] [address] [id number] [place] [address]- 7871 Nov, [facility] [address] [id number] [place] [address]- 4915 Nov, [facility] [address] [id number] [place] [address]- 0727 Nov, [facility] [address] [id number] [place] [address]- 9760 Nov, [facility] [place] [facility] [address] [id number] [place] [address]- 0473 Nov, [facility] [address] [id number] [place] [address]- 3836 Nov, [facility] [place] [facility] [address] [id number] [place] [address]- 7274 Nov, [facility] [place] [facility] [address] [id number] [place] [address]- 2690 Nov, [facility] [place] [facility] [address] [id number] [place] [address]- 3020 Oct, [facility] [place] [facility] [address] [id number] [place] [address]- 2546 Oct, [facility] [place] [facility] [address] [id number] [place] [address]- 3838 Oct, [facility] [address] [id number] [place] [address]- 5709 Oct, [facility] [place] [facility] [address] [id number] [place] [address]- 4358 Sep, [facility] [place] [facility] [address] [facility] [id number] [place] [address]- 7607 Sep, [facility] [place] [facility] [address] [id number] [place] [address]- 6805 Aug, [facility] [place] [facility] [address] [id number] [place] [address]- 2451 Aug, [facility] [place] [facility] [address] [id number] [place] [address]- 5013 Aug, [facility] [place] [facility] [address] [facility] [id number] [place] [address]- 1138 Jul, [facility] [place] [facility] [address] [id number] [place] [address]- 3211 Jul, [facility] [place] [facility] [address] [facility] [id number] [place] [address]- 3433 Jul, [facility] [place] [facility] [address] [facility] [id number] [place] [address]- 0288 Jul, [facility] [place] [facility] [address] [facility] [id number] [place] [address]- 2816 Jul, [facility] [place] [facility] [address] [id number] [place] [address]- 9628 Jul, [facility] [place] [facility] [address] [facility] [id number] [place] [address]- 8702 Jul, [facility] [place] [facility] [address] [id number] [place] [address]- 1451 Jul, [facility] [place] [facility] [address] [facility] [id number] [place] [address]- 2087 Jun, [facility] [place] [facility] [address] [id number] [place] [address]- 1314 May, [facility] [address] [id number] [place] [address]- 6265 May, [facility] [place] [facility] [address] [id number] [place] [address]- 1892 May, [facility] [place] [facility] [address] [id number] [place] [address]- 1104 May, [facility] [place] [facility] [address] [id number] [place] [address]- 4957 May, [facility] [place] [facility] [address] [id number] [place] [address]- 8568 May, [facility] [place] [facility] [address] [id number] [place] [address]- 4853 May, [facility] [place] [facility] [address] [id number] [place] [address]- 4671 Aug, [facility] [place] [facility] [address] [id number] [place] [address]- 0447 Aug, [facility] [place] [facility] [address] [id number] [place] [address]- 2535 Aug, [facility] [place] [facility] [address] [id number] [place] [address]- 3356 Jun, [facility] [place] [facility] [address] [id number] [place] [address]- 2439 Jun, [facility] [place] [facility] [address] [id number] [place] [address]- 9033 Jun, [facility] [place] [facility] [address] [id number] [place] [address]- 9215 Jun, [facility] [place] [facility] [address] [id number] [place] [address]- 9655 Jan, [facility] [place] [facility] [address] [id number] [place] 2863 Jul, [facility] [place] [address] [facility] [id number] [place] [address]- 9312 Jul, [facility] [place] [address] [facility] [id number] [place] [address]- 8287 May, [facility] [place] [address] [facility] [id number] [place] 2910 May, [facility] [place] [address] [facility] [id number] [place] [address]28 May, IMMUNIZATIONS No Known Immunizations SOCIAL HISTORY Never Assessed REASON FOR VISIT OB-intake--[facility] PLAN OF CARE Activity Details Follow Up 4 Weeks, 4 Weeks Reason: VITAL SIGNS Height 65 in 2017-10-01 Weight 236.9 lbs 2017-10-01 Temperature 98.0 degrees Fahrenheit 2017-10-01 Heart Rate 90 bpm 2017-10-01 Respiratory Rate 20 2017-10-01 BMI 39.422 kg/m2 2017-10-01 Blood pressure systolic 112 mmHg 2017-10-01 Blood pressure diastolic 70 mmHg 2017-10-01 MEDICATIONS Medication Instructions Dosage Frequency Start Date End Date Duration Status Active Metformin HCl 500 mg Orally Twice a day 1 tablet with meals(take one tablet daily for the first 7 days) 12h 07 Jun, 2017 30 day(s) Active RESULTS No Results PROCEDURES Procedure Date Ordered Result Body Site SPECIMEN HANDLING Oct 01, 2017 BLOOD TYPING, ABO Oct 01, 2017 COMPLETE CBC W/AUTO DIFF WBC Oct 01, 2017 TRICHOMONAS ASSAY W/OPTIC Oct 01, 2017 No Charge Oct 01, 2017 BLOOD TYPING, RH (D) Oct 01, 2017 RBC ANTIBODY SCREEN Oct 01, 2017 CULTURE, BACTERIA, OTHER Oct 01, 2017 ASSAY THYROID STIM HORMONE Oct 01, 2017 URINALYSIS, AUTO, W/O SCOPE Oct 01, 2017 RUBELLA ANTIBODY Oct 01, 2017 Hemoglobin Test Send Out 0 dollar Oct 01, 2017 URINE CULTURE/COLONY COUNT Oct 01, 2017 VENIPUNCT, ROUTINE* Oct 01, 2017 INSTRUCTIONS MEDICATIONS ADMINISTERED No Known Medications MEDICAL (GENERAL) HISTORY Type Description Date Medical History Rheumatoid Arthritis Medical History Blood sugars were high pt. placed on Metformin Hospitalization History childbirth only
--- OUTSIDE RECORDS SUMMARY | 2018-04-28 13:20 | XMS REPORT ---
Author Author SWATI DILIP [facility] Address [address] [place] [address] Care Team Providers Care Data Support Specialist Name Role Phone TORITO LONGORIAY Unavailable PROBLEMS Type Condition ICD9-CM Code SJF71-CF Code Onset Dates Condition Status SNOMED Code Problem Rheumatoid arthritis involving multiple sites with positive rheumatoid factor M05.79 Active 59752955 Problem Rheumatoid arthritis M06.9 Active 38352586 Problem Vasomotor rhinitis J30.0 Active 6360581 Problem Seasonal allergies J30.2 Active 825424736 Problem Body mass index (BMI) of 40.0-44.9 in adult Z68.41 Active 984395051 Problem Other obesity due to excess calories E66.09 Active 081612141 Problem care, subsequent in second trimester Z34.82 Active 963993886 Problem Obesity complicating , unspecified trimester O99.210 Active [id number] ALLERGIES No Information ENCOUNTERS Encounter Location Date Diagnosis [facility] [id number] [place] [address]2363- 8579 Feb, 2018 BMI 40.0-44.9, adult Z68.41 and care, subsequent in second trimester Z34.82 [facility] [id number] [place] [address] 19298- 6443 15 Jan, 2018 Diabetes mellitus screening Z13.1 [facility] [id number] [place] [address] 46024- 2046 08 Jan, 2018 care, subsequent in second trimester Z34.82 and 23 weeks gestation of Z3A.23 [facility] [id number] [place] [address] 74762- 4000 Jan, [facility] [id number] [place] [address] 70671 -5668 Jan, Seasonal allergies J30.2 ; Vasomotor rhinitis J30.0 and Sore throat J02.9 [place] [address] [address]- 3655 December, care, subsequent in second trimester Z34.82 ; 20 weeks gestation of Z3A.20 ; Evaluate anatomy not seen on prior sonogram Z04.8 and Diabetes mellitus screening Z13.1 [place] [address] 41613- 7137 Nov, Racing heart beat R00.0 [place] [address] 18627- 0547 Nov, Racing heart beat R00.0 [place] [address] 90836- 8700 Nov, [place] [address] 56072- 8545 Nov, care, subsequent in second trimester Z34.82 and 16 weeks gestation of Z3A.16 [place] [address] 69397- 6869 Oct, care in first trimester Z34.91 ; Supervision of other high risk pregnancies, first trimester O09.891 ; 12 weeks gestation of Z3A.12 and Red blood cell antibody positive R76.8 [place] [address] 35605- 5429 Sep, [place] [id number] [place] [address] 53714- 1580 Sep, care in first trimester Z34.91 and 8 weeks gestation of Z3A.08 [place] [address] 01087- 5625 Sep, [place] [address] 76575- 8936 Sep, [place] [id number] [place] [address] 63454- 1974 07 Sep, 2017 [place] [id number] [place] [address] 13392- 1969 Sep, Encounter for test Z32.00 [place] [id number] [place] [address] 36920- 1716 Jun, [place] [address] 32557- 3225 Jun, Infertility counseling Z31.69 [place] [address] 80328- 2834 Jun, Infertility counseling Z31.69 ; Other obesity due to excess calories E66.09 ; Body mass index (BMI) of 40.0-44.9 in adult Z68.41 and BMI 40.0-44.9, adult Z68.41 [facility] [place] [id number] [place] [address] 25634 -4702 Apr, Acute suppurative otitis media of right ear with spontaneous rupture of tympanic membrane, recurrence not specified H66.011 [place] [id number] [place] [address] 33757- 7826 Feb, Bacterial conjunctivitis of right eye H10.9 [facility] [place] [id number] [place] [address] 72839 -0873 Nov, Sore throat J02.9 and Acute upper respiratory infection, unspecified J06.9 [place] [id number] [place] [address] 30766- 1566 Oct, Encounter for test Z32.00 [place] [id number] [place] [address] 77053- 4451 Sep, [place] [id number] [place] [address] 00337- 8846 Aug, [facility] [place] [address] 08288 -1532 Aug, Bacterial conjunctivitis of right eye H10.9 [facility] [address] [address] 7483 Aug, [facility] [address] [address]- 6132 16 Aug, 2016 Rheumatoid arthritis involving multiple sites with positive rheumatoid factor M05.79 [facility] [address] [address]- 9690 16 Aug, 2016 Rheumatoid arthritis of multiple sites with negative rheumatoid factor M06.09 [place] [address] [place] [address] 23162- 0248 Jul, Morbid obesity due to excess calories E66.01 [facility] [address] [address] May, Sore throat J02.9 [facility] [address] [address]- 2202 May, Rheumatoid arthritis involving multiple sites with positive rheumatoid factor M05.79 [place] [address] [address]- 1096 May, [facility] [id number] [address] 28 Apr, 2016 Acute bacterial conjunctivitis of right eye H10.31 [facility] [id number] [address]- 4595 Feb, Rheumatoid arthritis M06.9 and Rheumatic heart failure I09.81 [facility] [address] [id number] [place] [address] Nov Rheumatoid arthritis M06.9 [facility] [id number] [address]- 4571 Nov, Rheumatoid arthritis M06.9 and Rheumatic heart failure I09.81 [facility] [address] [address]- 6426 Nov, Left shoulder pain M25.512 ; Rheumatoid arthritis M06.9 and Rheumatic heart failure I09.81 [place] [id number] [place] [address] 49014- 4903 Aug, Rheumatoid arthritis M06.9 [facility] [id number] [place] [address] 46994 -5754 Aug, Acute bacterial conjunctivitis of right eye H10.021 [place] [address] 48447- 9485 Jul, Rheumatic heart failure I09.81 [place] [address] 88565- 3968 Jun, Rheumatoid arthritis M06.9 [place] [address] 97332- 2066 Jun, Rheumatoid arthritis M06.9 [facility] [place] [address] 91400 -0516 Jun, Hordeolum external, unspecified laterality H00.019 and Seasonal allergies J30.2 [facility] [place] [address] 07955 -9913 09 Jun, 2015 Otitis media of both ears H66.93 ; Sore throat J02.9 and Unspecified perforation of tympanic membrane, right ear H72.91 [place] [id number] [place] [address] 87885- 9876 May, Rheumatoid arthritis M06.9 [place] [address] 37966- 0829 24 Apr, 2015 Rheumatoid arthritis 714.0 [place] [address] 59988- 2614 18 Apr, 2015 Bilateral knee pain 719.46 and Routine adult health maintenance V70.0 [place] [address] 73545- 8691 17 Apr, 2015 Bilateral knee pain 719.46 ; Routine adult health maintenance V70.0 and Bilateral elbow joint pain 719.42 [facility] [address] [facility] [id number] [address] 4593 17 Mar, 2015 Contraception, generic surveillance V25.40 [facility] [address] [facility] [id number], [place] [address]- 4048 14 Mar, 2015 Conjunctivitis 372.30 and Rash 782.1 [facility] [id number] [place] [address] 28165- 9996 14 Mar, 2015 [facility] [address] [facility] [id number], [place] [address]- 3064 Nov, [facility] [id number] [place] [address] 27494- 4153 Nov, [facility] [id number] [address]- 1342 18 Oct, 2014 [facility] [address] [facility] [id number], [place] [address]- 8438 Oct, [facility] [id number] [address]- 5849 Oct, [facility] [address], [place] [address]- 2933 Oct, [facility] [address] [address]- 8298 Oct, [facility] [address] [facility] [id number], [place] [address]- 5362 Feb, [facility] [address] [facility] [id number], [place] [address]- 6806 Feb, [facility] [address] [facility] [id number], [place] [address]- 2455 December, [facility] [address] [address]- 8595 December, [facility] [address] [facility] [id number] [place] [address]- 5116 December, [facility] [address] [id number] [place] [address]- 7416 December, [facility] [address] [id number] [place] [address]- 4526 December, [facility] [address] [id number] [place] [address]- 6396 December, [facility] [address] [id number] [place] [address]- 3909 December, [facility] [address] [id number] [place] [address]- 8605 Nov, [facility] [address] [id number] [place] [address]- 5550 Nov, [facility] [address] [id number] [place] [address]- 2928 Nov, [facility] [address] [id number] [place] [address]- 8969 Nov, [facility] [address] [id number] [place] [address]- 2932 Nov, [facility] [address] [id number] [place] [address]- 4844 Nov, [facility] [place] [facility] [address] [id number] [place] [address]- 5982 Nov, [facility] [address] [id number] [place] [address]- 6167 Nov, [facility] [place] [facility] [address] [id number] [place] [address]- 8739 Oct, [facility] [place] [facility] [address] [id number] [place] [address]- 2546 Oct, [facility] [place] [facility] [address] [id number] [place] [address]- 2318 Oct, [facility] [address] [id number] [place] [address]- 3831 Oct, [facility] [place] [facility] [address] [id number] [place] [address]- 1288 Sep, [facility] [place] [facility] [address] [id number] [place] [address]- 2198 Sep, [facility] [place] [facility] [address] [id number] [place] [address]- 8750 Aug, [facility] [address] [id number] [place] [address]- 6142 Aug, [facility] [place] [facility] [address] [id number] [place] [address]- 2265 Aug, [facility] [address] [facility] [id number] [place] [address]- 7379 Jul, [facility] [place] [facility] [address] [id number], [place] [address]- 4822 Jul, [facility] [place] [facility] [address] [facility] [id number] [place] [address]- 7226 Jul, [facility] [place] [facility] [address] [facility] [id number], [place] [address]- 5727 Jul, [facility] [place] [facility] [address] [id number], [place] [address]- 9445 Jul, [facility] [place] [facility] [address] [id number], [place] [address]- 8687 Jul, [facility] [place] [facility] [address] [facility] [id number], [place] [address]- 0359 Jul, [facility] [place] [facility] [address] [id number][place] 9751 Jul, [facility] [place] [facility] [address] [facility] [id number], [place] [address]- 1541 Jun, [facility] [place] [facility] [address] [id number] [place] [address]- 9668 May, [facility] [place] [facility] [address] [id number] [place] [address]- 9238 May, [facility] [place] [facility] [address] [id number] [place] [address]- 8493 May, [facility] [place] [facility] [address] [id number] [place] [address]- 1151 May, [facility] [place] [facility] [address] [id number] [place] [address]- 9915 May, [facility] [place] [facility] [address] [id number] [place] [address]- 6405 May, [facility] [place] [facility] [address] [id number] [place] [address]- 2227 May, [facility] [place] [facility] [address] [id number] [place] [address]- 4956 Aug, [facility] [place] [facility] [address] [id number] [place] [address]- 2647 Aug, [facility] [place] [facility] [address] [id number] [place] [address]- 7335 Aug, [facility] [place] [facility] [address] [facility] [id number] [place] [address]- 3571 Jun, [facility] [place] [facility] [address] [id number] [place] [address]- 5419 Jun, [facility] [place] [facility] [address] [id number] [place] [address]- 6265 Jun, [facility] [place] [facility] [address] [id number] [place] [address]- 9362 Jun, [facility] [place] [facility] [address] [id number] [place] [address]- 4754 Jan, [facility] [place] [facility] [address] [facility] [id number] [place] [address]- 8424 Jul, [facility] [place] [facility] [address] [facility] [id number] [place] [address]- 5439 Jul, [facility] [address] [facility] [id number], [place] [address]- 8331 May, [facility] [address] [facility] [id number][place] 8341 May, [facility] [address] [facility] [id number][place] 6731 May, IMMUNIZATIONS No Known Immunizations SOCIAL HISTORY Never Assessed REASON FOR VISIT Pap results history update PLAN OF CARE VITAL SIGNS MEDICATIONS Unknown Medications RESULTS No Results PROCEDURES No Known procedures INSTRUCTIONS MEDICATIONS ADMINISTERED No Known Medications MEDICAL (GENERAL) HISTORY Type Description Date Medical History Rheumatoid Arthritis Medical History Blood sugars were high pt. placed on Metformin Hospitalization History childbirth only
--- OUTSIDE RECORDS SUMMARY | 2018-04-28 13:21 | XMS REPORT ---
Author Author BECKA SAL Organization [facility] Address [address] [place] [address] Care Team Providers Care Client Technical Specialist Name Role Phone BECKA SAL Unavailable PROBLEMS Type Condition ICD9-CM Code COD99-ZK Code Onset Dates Condition Status SNOMED Code Problem Rheumatoid arthritis involving multiple sites with positive rheumatoid factor M05.79 Active 43566451 Problem Rheumatoid arthritis M06.9 Active 86087135 Problem Vasomotor rhinitis J30.0 Active 8293743 Problem Seasonal allergies J30.2 Active 065547479 Problem Body mass index (BMI) of 40.0-44.9 in adult Z68.41 Active 179579472 Problem Other obesity due to excess calories E66.09 Active 167082889 Problem care, subsequent in second trimester Z34.82 Active 076043679 Problem Obesity complicating , unspecified trimester O99.210 Active [id number] ALLERGIES No Information ENCOUNTERS Encounter Location Date Diagnosis [facility] [id number] [place] [address] 18868- 1811 Feb, [facility] [id number] [place] [address] 29353- 0744 15 Jan, 2018 Diabetes mellitus screening Z13.1 [facility] [id number] [place] [address] 23982- 7687 08 Jan, 2018 care, subsequent in second trimester Z34.82 and 23 weeks gestation of Z3A.23 [facility] [address] 06647- 4816 07 Jan, 2018 [facility] [id number] [place] [address] 80206 -0886 04 Jan, 2018 Seasonal allergies J30.2 ; Vasomotor rhinitis J30.0 and Sore throat J02.9 [place] [address] [place] [address] 31838- 9443 December, care, subsequent in second trimester Z34.82 ; 20 weeks gestation of Z3A.20 ; Evaluate anatomy not seen on prior sonogram Z04.8 and Diabetes mellitus screening Z13.1 [place] [id number] [place] [address] 85925- 9316 Nov, Racing heart beat R00.0 [place] [id number] [place] [address] 07488- 2302 Nov, Racing heart beat R00.0 [place] [id number] [place] [address] 72340- 5978 Nov, [place] [id number] [place] [address] 86521- 8960 Nov, care, subsequent in second trimester Z34.82 and 16 weeks gestation of Z3A.16 [place] [id number] [place] [address] 47274- 0862 Oct, care in first trimester Z34.91 ; Supervision of other high risk pregnancies, first trimester O09.891 ; 12 weeks gestation of Z3A.12 and Red blood cell antibody positive R76.8 [place] [id number] [place] [address] 36721- 1448 Sep, [place] [id number] [place] [address] 31113- 6291 Sep, care in first trimester Z34.91 and 8 weeks gestation of Z3A.08 [place] [id number] [place] [address] 03618- 5411 Sep, [place] [id number] [place] [address] 38685- 5273 Sep, [place] [id number] [place] [address] 37035- 3309 Sep, [place] [id number] [place] [address] 83811- 1144 Sep, Encounter for test Z32.00 [place] [id number] [place] [address] 38101- 9596 Jun, [place] [address] 64751- 8574 Jun, Infertility counseling Z31.69 [place] [address] 48546- 7639 Jun, Infertility counseling Z31.69 ; Other obesity due to excess calories E66.09 ; Body mass index (BMI) of 40.0-44.9 in adult Z68.41 and BMI 40.0-44.9, adult Z68.41 [facility] [place] [id number] [place] [address] 88013 -7010 Apr, Acute suppurative otitis media of right ear with spontaneous rupture of tympanic membrane, recurrence not specified H66.011 [place] [id number] [place] [address] 08034- 2562 Feb, Bacterial conjunctivitis of right eye H10.9 [facility] [place] [id number] [place] [address] 35709 -3563 Nov, Sore throat J02.9 and Acute upper respiratory infection, unspecified J06.9 [place] [id number] [place] [address] 81302- 8120 Oct, Encounter for test Z32.00 [place] [id number] [place] [address] 24678- 9749 Sep, [place] [id number] [place] [address] 70504- 6360 Aug, [facility] [place] [id number] [place] [address] 73391 -0729 Aug, Bacterial conjunctivitis of right eye H10.9 [place] [address] [address]- 6560 16 Aug, 2016 [facility] [id number] [place] [address] 37044- 3208 Aug, Rheumatoid arthritis involving multiple sites with positive rheumatoid factor M05.79 [facility] [address] [address]- 3020 16 Aug, 2016 Rheumatoid arthritis of multiple sites with negative rheumatoid factor M06.09 [facility] [address] [address]- 4457 Jul, Morbid obesity due to excess calories E66.01 [facility] [address] [address] 19 May, 2016 Sore throat J02.9 [facility] [address] [address]- 3628 May, Rheumatoid arthritis involving multiple sites with positive rheumatoid factor M05.79 [facility] [address] [address]- 1817 May, [facility] [address] [address]279 28 Apr, 2016 Acute bacterial conjunctivitis of right eye H10.31 [facility] [address] [address]- 1892 Feb, Rheumatoid arthritis M06.9 and Rheumatic heart failure I09.81 [facility] [address] [id number] [place] [address] Nov Rheumatoid arthritis M06.9 [facility] [address] [facility] [id number] [address]- 8013 Nov, Rheumatoid arthritis M06.9 and Rheumatic heart failure I09.81 [facility] [address] [facility] [id number] [address]- 9908 04 Nov, 2015 Left shoulder pain M25.512 ; Rheumatoid arthritis M06.9 and Rheumatic heart failure I09.81 [facility] [address] [place] [address] 80283- 7853 Aug, Rheumatoid arthritis M06.9 [facility] [id number] [place] [address] 87092 -9466 Aug, Acute bacterial conjunctivitis of right eye H10.021 [place] [id number] [place] [address] 53513- 7909 Jul, Rheumatic heart failure I09.81 [facility] [id number] [place] [address] 03885- 9577 24 Jun, 2015 Rheumatoid arthritis M06.9 [place] [id number] [place] [address] 44893- 9995 16 Jun, 2015 Rheumatoid arthritis M06.9 [facility] [place] [id number] [place] [address] 05226 -5582 13 Jun, 2015 Hordeolum external, unspecified laterality H00.019 and Seasonal allergies J30.2 [facility] [place] [id number] [place] [address] 88730 -4511 09 Jun, 2015 Otitis media of both ears H66.93 ; Sore throat J02.9 and Unspecified perforation of tympanic membrane, right ear H72.91 [place] [address] [place] [address] 95800- 1155 May, Rheumatoid arthritis M06.9 [place] [id number] [place] [address] 56972- 7580 24 Apr, 2015 Rheumatoid arthritis 714.0 [place] [id number] [place] [address] 33262- 4513 18 Apr, 2015 Bilateral knee pain 719.46 and Routine adult health maintenance V70.0 [place] [address] [place] [address] 85812- 2906 17 Apr, 2015 Bilateral knee pain 719.46 ; Routine adult health maintenance V70.0 and Bilateral elbow joint pain 719.42 [place] [address] [facility] [id number] [place] [address]- 3603 17 Mar, 2015 Contraception, generic surveillance V25.40 [facility] [id number] [place] [address]- 7066 14 Mar, 2015 Conjunctivitis 372.[address] [facility] [address] [place] [address]- 4153 14 Mar, [address] [facility] [address] [facility] [id number] [place] [address]- 5290 [address], [address] [facility] [address] [facility] [id number] [place] [address]- 1028 Nov, [facility] [id number] [place] [address]- 2647 18 Oct, 2014 [facility] [address] [place] [address]- 8478 17 Oct, 2014 [facility] [address] [place] [address]- 3963 17 Oct, 2014 [facility] [address] [place] [address]- 3542 Oct, [facility] [address] [place] [address]- 0593 Oct, [facility] [address] [address]- 8374 Feb, [facility] [address] [facility] [id number] [address]- 8458 Feb, [facility] [id number] [place] [address]- [address]6 December, [facility] [address] [facility] [id number] [place] [address]- 3360 December, [facility] [id number] [place] [address]- 7722 December, [facility] [place] [facility] [address] [id number] [place] [address]- 0122 December, [facility] [place] [facility] [address] [id number] [place] [address]- 9641 December, [facility] [place] [facility] [address] [id number] [place] [address]- 5336 December, [facility] [place] [facility] [address] [id number] [place] [address]- 5317 December, [facility] [place] [facility] [address] [id number] [place] [address]- 2398 Nov, [facility] [place] [facility] [address] [id number] [place] [address]- 4846 Nov, [facility] [place] [facility] [address] [id number] [place] [address]- 7945 Nov, [facility] [place] [facility] [address] [id number] [place] [address]- 1633 Nov, [facility] [place] [facility] [address] [id number] [place] [address]- 6002 Nov, [facility] [place] [facility] [address] [id number] [place] [address]- 1238 Nov, [facility] [place] [facility] [address] [id number] [place] [address]- 8095 Nov, [facility] [place] [facility] [address] [id number] [place] [address]- 3701 Nov, [facility] [place] [facility] [address] [id number] [place] [address]- 5912 Oct, [facility] [place] [facility] [address] [id number] [place] [address]- 2816 Oct, [facility] [place] [facility] [address] [id number] [place] [address]- 4936 Oct, [facility] [place] [facility] [address] [id number] [place] [address]- 9271 Oct, [facility] [place] [facility] [address] [id number] [place] [address]- 0937 Sep, [facility] [place] [facility] [address] [id number] [place] [address]- 4876 Sep, [facility] [place] [facility] [address] [facility] [id number] [place] [address]- 9273 Aug, [facility] [place] [facility] [address] [id number] [place] [address]- 0684 Aug, [facility] [place] [facility] [address] [id number] [place] [address]- 0141 Aug, [facility] [place] [facility] [address] [id number] [place] [address]- 9309 Jul, [facility] [place] [facility] [address] [facility] [id number] [place] [address]- 2771 Jul, [facility] [place] [facility] [address] [id number] [address]- 3258 Jul, [facility] [place] [facility] [address] [facility] [id number] [address]- 1850 Jul, [facility] [place] [facility] [address] [facility] [id number] [place] [address]- 0590 Jul, [facility] [place] [facility] [address] [facility] [id number] [address]- 3557 Jul, [facility] [place] [facility] [address] [id number] [place] [address]- 2541 Jul, [facility] [place] [facility] [address] [id number] [address]- 2540 Jul, [facility] [place] [facility] [address] [facility] [id number] [address]- 3015 Jun, [facility] [place] [facility] [address] [facility] [id number] [place] [address]- 2546 May, [facility] [place] [facility] [address] [id number] [place] [address]- 0915 May, [facility] [place] [facility] [address] [id number] [place] [address]- 3130 May, [facility] [place] [facility] [address] [id number] [place] [address]- 2329 May, [facility] [place] [facility] [address] [id number] [place] [address]- 2864 May, [facility] [place] [facility] [address] [id number] [place] [address]- 2563 May, [facility] [place] [facility] [address] [id number] [place] [address]- 7306 May, [facility] [place] [facility] [address] [id number] [place] [address]- 5452 Aug, [facility] [place] [facility] [address] [id number] [place] [address]- 2691 Aug, [facility] [place] [facility] [address] [id number] [place] [address]- 0651 Aug, [facility] [place] [facility] [address] [id number] [place] [address]- 2933 Jun, [facility] [place] [facility] [address] [id number] [place] [address]- 6206 Jun, [facility] [place] [facility] [address] [id number] [place] [address]- 1832 Jun, [facility] [place] [facility] [address] [id number] [place] [address]- 3838 Jun, [facility] [place] [facility] [address] [id number] [place] [address]- 9046 Jan, [facility] [place] [facility] [address] [id number] [place] [address]- 7743 Jul, [facility] [place] [facility] [address] [id number] [place] [address]- 3469 Jul, [facility] [address] [facility] [id number] [place] [address]- 7525 May, [facility] [address] [facility] [id number] [place] 3723 May, [facility] [address] [facility] [id number] [place] [address]- 0916 May, IMMUNIZATIONS No Known Immunizations SOCIAL HISTORY Never Assessed REASON FOR VISIT Medication Question PLAN OF CARE VITAL SIGNS MEDICATIONS Unknown Medications RESULTS No Results PROCEDURES No Known procedures INSTRUCTIONS MEDICATIONS ADMINISTERED No Known Medications MEDICAL (GENERAL) HISTORY Type Description Date Medical History Rheumatoid Arthritis Medical History Blood sugars were high pt. placed on Metformin Hospitalization History childbirth only
--- OUTSIDE RECORDS SUMMARY | 2018-04-28 13:21 | XMS REPORT ---
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 Active 96085845 Problem Rheumatic heart failure I09.81 Active 70999718 Problem Rheumatoid arthritis of multiple sites with negative rheumatoid factor M06.09 Active 999893808 Problem Morbid obesity due to excess calories E66.01 Active 542963912 ALLERGIES No Information ENCOUNTERS Encounter Location Date Diagnosis [place] [id number] [place] [address] 42736- 5515 Nov, [place] [id number] [place] [address] 74734- 3623 Oct, care in first trimester Z34.91 ; Supervision of other high risk pregnancies, first trimester O09.891 ; 12 weeks gestation of Z3A.12 and Red blood cell antibody positive R76.8 [facility] [address], [place] [address] Sep, [place] [id number] [place] [address] 49570- 3616 Sep, care in first trimester Z34.91 and 8 weeks gestation of Z3A.08 [place] [id number] [place] [address] 59989- 5533 Sep, [facility] [address], [place] [address] Sep, [facility] [id number] [place] [address] 00429- 8382 Sep, [facility] [id number] [place] [address] 21681- 8801 Sep, Encounter for test Z32.00 [place] [id number] [place] [address] 86402- 7966 Jun, [place] [id number] [place] [address] 64084- 6772 Jun, Infertility counseling Z31.69 [place] [id number] [place] [address] 35303- 3682 Jun, Infertility counseling Z31.69 ; Other obesity due to excess calories E66.09 ; Body mass index (BMI) of 40.0-44.9 in adult Z68.41 and BMI 40.0-44.9, adult Z68.41 [facility] [place] [id number] [place] [address] 29635 -8566 Apr, Acute suppurative otitis media of right ear with spontaneous rupture of tympanic membrane, recurrence not specified H66.011 [place] [address], [place] [address] Feb, Bacterial conjunctivitis of right eye H10.9 [facility] [address] [place] [address] 51499 -4320 Nov, Sore throat J02.9 and Acute upper respiratory infection, unspecified J06.9 [place] [id number] [place] [address] 56851- 7407 Oct, Encounter for test Z32.00 [place] [address], [place] [address] Sep, [place] [id number] [address] 7147 18 Aug, 2016 [facility] [address], [place] [address] 18 Aug, 2016 Bacterial conjunctivitis of right eye H10.9 [facility] [address], [place] [address] 20[address] 16 Aug, 2016 [facility] [address] [place] [address] 96216- 3367 Aug, Rheumatoid arthritis involving multiple sites with positive rheumatoid factor M05.79 [facility] [address] [place] [address] 82351- 8040 16 Aug, 2016 Rheumatoid arthritis of multiple sites with negative rheumatoid factor M06.09 [facility] [address], [place] [address] Jul, Morbid obesity due to excess calories E66.01 [facility] [address], [place] [address] 19 May, 2016 Sore throat J02.9 [facility] [address], [place] [address] 14 May, 2016 Rheumatoid arthritis involving multiple sites with positive rheumatoid factor M05.79 [facility] [address], [place] [address] 8962 14 May, 2016 [facility] [id number], [place] [address] 28 Apr, 2016 Acute bacterial conjunctivitis of right eye H10.31 [facility] [address] [facility] [id number], [place] [address] Feb, Rheumatoid arthritis M06.9 and Rheumatic heart failure I09.81 [facility] [address] [id number] [address] Nov Rheumatoid arthritis M06.9 [facility] [id number], [place] [address] 6270 Nov, Rheumatoid arthritis M06.9 and Rheumatic heart failure I09.81 [facility] [id number] [place] [address] 09809- 1925 Nov, Left shoulder pain M25.512 ; Rheumatoid arthritis M06.9 and Rheumatic heart failure I09.81 [facility] [id number] [place] [address] 56730- 9647 Aug, Rheumatoid arthritis M06.9 [facility] [address] [address] Aug, Acute bacterial conjunctivitis of right eye H10.021 [place] [address] 13721- 2137 Jul, Rheumatic heart failure I09.81 [facility] [id number] [place] [address] 99951- 5356 Jun, Rheumatoid arthritis M06.9 [facility] [address] [address]- 8728 16 Jun, 2015 Rheumatoid arthritis M06.9 [facility] [id number] [place] [address] 58145 -3575 Jun, Hordeolum external, unspecified laterality H00.019 and Seasonal allergies J30.2 [facility] [id number] [place] [address] 57459 -4185 09 Jun, 2015 Otitis media of both ears H66.93 ; Sore throat J02.9 and Unspecified perforation of tympanic membrane, right ear H72.91 [facility] [id number] [place] [address] 76475- 2442 May, Rheumatoid arthritis M06.9 [facility] [address] [address]- 9525 24 Apr, 2015 Rheumatoid arthritis 714.0 [place] [id number] [place] [address] 19858- 3323 18 Apr, 2015 Bilateral knee pain 719.46 and Routine adult health maintenance V70.0 [facility] [address], [place] [address] 0925 17 Apr, 2015 Bilateral knee pain 719.46 ; Routine adult health maintenance V70.0 and Bilateral elbow joint pain 719.42 [facility] [address] [facility] [id number] [address] 17 Mar, 2015 Contraception, generic surveillance V25.40 [facility] [id number] [place] [address] 56051- 3222 14 Mar, 2015 Conjunctivitis 372.30 and Rash 782.1 [facility] [id number] [place] [address] 76939- 2025 14 Mar, 2015 [facility] [id number] [place] [address] 25392- 4183 Nov, [facility] [id number] [place] [address] 94335- 1873 Nov, [facility] [id number] [place] [address] 96383- 2908 18 Oct, 2014 [facility] [id number] [place] [address] 39961- 3324 17 Oct, 2014 [facility] [address], [place] [address] 1449 17 Oct, 2014 [facility] [address], [place] [address] 0934 Oct, [facility] [address], [place] [address]- 5346 Oct, [facility] [id number] [place] [address] 767078- 6457 Feb, [facility] [address] [address] [address] Feb, [facility] [address], [place] [address] 2976 December, [facility] [address] [id number] [place] [address] 5746 December, [facility] [place] [facility] [address] [id number] [place] [address]- 7889 December, [facility] [place] [facility] [address] [id number] [place] [address]- 5158 December, [facility] [place] [facility] [address] [id number] [place] [address]- 5717 December, [facility] [address] [id number] [place] [address]- 2950 December, [facility] [place] [facility] [address] [id number] [place] [address]- 1016 December, [facility] [place] [facility] [address] [id number] [place] [address]- 4631 Nov, [facility] [place] [facility] [address] [id number] [place] [address]- 2506 Nov, [facility] [place] [facility] [address] [id number] [place] [address]- 5061 Nov, [facility] [place] [facility] [address] [id number] [place] [address]- 9110 Nov, [facility] [place] [facility] [address] [id number] [place] [address]- 0275 Nov, [facility] [place] [facility] [address] [id number] [place] [address]- 8015 Nov, [facility] [place] [facility] [address] [id number] [place] [address]- 6456 Nov, [facility] [place] [facility] [address] [id number] [place] [address]- 6645 Nov, [facility] [place] [facility] [address] [id number] [place] [address]- 7625 Oct, [facility] [place] [facility] [address] [id number], [place] [address]- 5146 Oct, [facility] [address] [id number] [place] [address]- 1963 Oct, [facility] [place] [facility] [address] [id number] [place] [address]- 1206 Oct, [facility] [place] [facility] [address] [facility] [id number] [place] [address]- 4608 Sep, [facility] [place] [facility] [address] [id number] [place] [address]- 2718 Sep, [facility] [address] [facility] [id number] [place] [address]- 5543 Aug, [facility] [place] [facility] [address] [facility] [id number] [place] [address]- 1587 Aug, [facility] [address] [facility] [id number], [place] [address]- 7344 Aug, [facility] [place] [facility] [address] [facility] [id number], [place] [address]- 7137 Jul, [facility] [place] [facility] [address] [facility] [id number] [place] [address]- 8491 Jul, [facility] [place] [facility] [address] [facility] [id number], [place] [address]- 4667 Jul, [facility] [place] [facility] [address] [facility] [id number], [place] [address]- 3294 Jul, [facility] [place] [facility] [address] [facility] [id number], [place] [address]- 6701 Jul, [facility] [place] [facility] [address] [id number], [place] [address]- 8986 Jul, [facility] [place] [facility] [address] [facility] [id number], [place] [address]- 5083 Jul, [facility] [place] [facility] [address] [facility] [id number], [place] [address]- 6442 Jul, [facility] [place] [facility] [address] [id number] [place] [address]- 9884 Jun, [facility] [place] [facility] [address] [id number] [place] [address]- 6147 May, [facility] [place] [facility] [address] [id number] [place] [address]- 8712 May, [facility] [place] [facility] [address] [id number] [place] [address]- 7190 May, [facility] [place] [facility] [address] [id number] [place] [address]- 5311 May, [facility] [place] [facility] [address] [id number] [place] [address]- 3813 May, [facility] [place] [facility] [address] [id number] [place] [address]- 2188 May, [facility] [place] [facility] [address] [id number] [place] [address]- 9412 May, [facility] [place] [facility] [address] [id number] [place] [address]- 3609 Aug, [facility] [place] [facility] [address] [id number] [place] [address]- 9585 Aug, [facility] [place] [facility] [address] [id number] [place] [address]- 0068 Aug, [facility] [place] [facility] [address] [id number] [place] [address]- 9989 Jun, [facility] [place] [facility] [address] [id number] [place] [address]- 4391 Jun, [facility] [place] [facility] [address] [id number] [place] [address]- 5579 Jun, [facility] [place] [facility] [address] [id number] [place] [address]- 7086 Jun, [facility] [place] [facility] [address] [id number] [place] [address]- 5382 Jan, [facility] [address] [facility] [id number], [place] [address]- 2546 Jul, [facility] [id number], [place] [address]- 2546 Jul, [facility] [id number], [place] [address]- 2546 May, [facility] [address], [place] [address]- 2546 May, [facility] [address] [facility] [id number], [place] [address]- 2546 May, IMMUNIZATIONS No Known Immunizations SOCIAL HISTORY Never Assessed REASON FOR VISIT pink eye PLAN OF CARE VITAL SIGNS MEDICATIONS Medication Instructions Dosage Frequency Start Date End Date Duration Status Gentamicin Sulfate 0.3 % Ophthalmic every 4 hrs 1 drop into affected eye Aug, 07 days Active RESULTS No Results PROCEDURES No Known procedures INSTRUCTIONS MEDICATIONS ADMINISTERED No Known Medications MEDICAL (GENERAL) HISTORY Type Description Date Medical History Rheumatoid Arthritis Medical History Blood sugars were high pt. placed on Metformin Hospitalization History childbirth only
--- OUTSIDE RECORDS SUMMARY | 2018-04-28 13:22 | XMS REPORT ---
Author JESE Cain [facility] eClinicalWorks Address Unknown Phone Unavailable Care Team Providers Care Video Operator Name Role Phone JESE HEARN CP Unavailable Allergies, Adverse Reactions, Alerts Substance Reaction Event Type N.K.D.A. Info Not Available Non Drug Allergy Problems Problem Type Condition Code Onset Dates Condition Status Assessment Rheumatoid arthritis M06.9 Active Problem Rheumatoid arthritis M06.9 Active Medications Medication Code System Code Instructions Start Date End Date Status Dosage Methotrexate (Anti-Rheumatic) [facility] [address]-19 2.5 MG Orally once weekly May 30, 2015 4 tablets Diclofenac Sodium [facility] 2] [address]-62 50 MG Orally Twice a day Apr 26, 2015 1 tablet B-6 Folic Acid [facility]NOTE 2] [address]-18 400-1000-50 MCG-MCG-MG Orally once daily May 30, 2015 as directed NuvaRing [facility]NOTE 2] [address]-87 0.12-0.015 MG/24HR Vaginal Mar 26, 2015 1 ring Procedures Procedure Coding System Code Date Office Visit, Est Pt., Level 3 CPT-4 41666 May 30, 2015 Vital Signs Date/Time: May 30, 2015 BMI 35.27 Index Weight 212 lbs Height 65 in BMIPercentile 97.35 % Wt Percentile 98.26 % Results No Known Results Summary Purpose eClinicalWorks Submission
--- OUTSIDE RECORDS SUMMARY | 2018-04-28 13:22 | XMS REPORT ---
Author Author NADIYA JESE Organization [facility] Address [address] [place] [address] Care Team Providers Care Digital Forensic Examiner Name Role Phone JESE HEARN Unavailable PROBLEMS Type Condition ICD9-CM Code GEG31-KW Code Onset Dates Condition Status SNOMED Code Problem Rheumatoid arthritis of multiple sites with negative rheumatoid factor M06.09 Active 798936464 Problem Morbid obesity due to excess calories E66.01 Active 763040391 Problem Rheumatoid arthritis M06.9 Active 86391966 Problem Rheumatoid arthritis involving multiple sites with positive rheumatoid factor M05.79 Active 62630662 Problem Rheumatic heart failure I09.81 Active 41069656 ALLERGIES Unknown Allergies SOCIAL HISTORY No smoking Hx information available PLAN OF CARE VITAL SIGNS MEDICATIONS Unknown Medications RESULTS Name Result Date Reference Range CBC 2016-08-25 WBC 7.2 3.4-10.8 RBC 4.70 3.77-5.28 Hemoglobin 12.9 11.1-15.9 Hematocrit 38.2 34.0-46.6 MCV 81 79-97 MCH 27.4 26.6-33.0 MCHC 33.8 31.5-35.7 RDW 15.4 12.3-15.4 Platelets 325 150-379 Neutrophils 64 Lymphs 28 Monocytes 7 Eos 1 Basos 0 Neutrophils (Absolute) 4.5 1.4-7.0 Lymphs (Absolute) 2.0 0.7-3.1 Monocytes(Absolute) 0.5 0.1-0.9 Eos (Absolute) 0.1 0.0-0.4 Baso (Absolute) 0.0 0.0-0.2 Immature Granulocytes 0 Immature Grans (Abs) 0.0 0.0-0.1 LIVER PANEL (LFT) 2016-08-25 Protein, Total, Serum 7.8 6.0-8.5 Albumin, Serum 4.2 3.5-5.5 Bilirubin, Total 0.2 0.0-1.2 Bilirubin, Direct 0.08 0.00-0.40 Alkaline Phosphatase, S 93 39-117 AST (SGOT) 14 0-40 ALT (SGPT) 13 0-32 PROCEDURES Procedure Date Ordered Related Diagnosis Body Site HEPATIC FUNCTION PANEL Aug 25, 2016 COMPLETE CBC W/AUTO DIFF WBC Aug 25, 2016 VENIPUNCT, ROUTINE* Aug 25, 2016 IMMUNIZATIONS No Known Immunizations
--- OUTSIDE RECORDS SUMMARY | 2018-04-28 13:22 | XMS REPORT ---
Author Author BECKA SAL Organization [facility] Address [address] [place] [address] Care Team Providers Care Behavioral Health Worker Name Role Phone BECKA SAL Unavailable PROBLEMS Type Condition ICD9-CM Code VMU13-YH Code Onset Dates Condition Status SNOMED Code Problem Obesity complicating , unspecified trimester O99.210 Active 337677389603 Problem Body mass index (BMI) of 40.0-44.9 in adult Z68.41 Active 241636422 Problem Rheumatoid arthritis M06.9 Active 55318581 Problem Other obesity due to excess calories E66.09 Active 666720071 Problem Rheumatoid arthritis involving multiple sites with positive rheumatoid factor M05.79 Active 73540968 ALLERGIES No Information ENCOUNTERS Encounter Location Date Diagnosis [facility] [id number] [place] [address] 96740- 5802 Feb, [facility] [id number] [place] [address] 26875- 9314 Jan, [place] [id number] [place] [address] 17054- 1940 December, care, subsequent in second trimester Z34.82 ; 20 weeks gestation of Z3A.20 ; Evaluate anatomy not seen on prior sonogram Z04.8 and Diabetes mellitus screening Z13.1 [facility] [id number] [place] [address] 41319- 2515 Nov, Racing heart beat R00.0 [facility] [id number] [place] [address] 64447- 3978 Nov, Racing heart beat R00.0 [place] [id number] [place] [address] 83893- 8273 Nov, [place] [address] [address] 3[address] Nov, care, subsequent in second trimester Z34.82 and 16 weeks gestation of Z3A.16 [place] [id number] [place] [address] 83583- 3128 Oct, care in first trimester Z34.91 ; Supervision of other high risk pregnancies, first trimester O09.891 ; 12 weeks gestation of Z3A.12 and Red blood cell antibody positive R76.8 [place] [address] [place] [address] 19294- 3891 Sep, [place] [id number] [place] [address] 99240- 2135 Sep, care in first trimester Z34.91 and 8 weeks gestation of Z3A.08 [place] [id number] [place] [address] 41467- 9449 08 Sep, 2017 [place] [address] [place] [address] 60731- 0388 07 Sep, 2017 [place] [id number] [place] [address] 73685- 7380 Sep, [place] [address] [place] [address] 36525- 3312 Sep, Encounter for test Z32.00 [place] [id number] [place] [address] 59793- 7307 Jun, [place] [address] [place] [address] 02487- 5248 02 Jun, 2017 Infertility counseling Z31.69 [place] [id number] [place] [address] 53423- 5788 Jun, Infertility counseling Z31.69 ; Other obesity due to excess calories E66.09 ; Body mass index (BMI) of 40.0-44.9 in adult Z68.41 and BMI 40.0-44.9, adult Z68.41 [facility] [place] [id number] [place] [address] 16542 -2894 23 Apr, 2017 Acute suppurative otitis media of right ear with spontaneous rupture of tympanic membrane, recurrence not specified H66.011 [place] [id number] [place] [address] 08398- 8321 Feb, Bacterial conjunctivitis of right eye H10.9 [facility] [place] [id number] [place] [address] 78154 -7846 Nov, Sore throat J02.9 and Acute upper respiratory infection, unspecified J06.9 [place] [address] 37841- 3940 Oct, Encounter for test Z32.00 [place] [id number] [place] [address] 12740- 8441 Sep, [place] [address] 96423- 3158 Aug, [facility] [place] [id number] [place] [address] 85077 -4942 Aug, Bacterial conjunctivitis of right eye H10.9 [place] [id number] [place] [address] 77937- 9273 Aug, [place] [id number] [place] [address] 56442- 2528 Aug, Rheumatoid arthritis involving multiple sites with positive rheumatoid factor M05.79 [place] [id number] [place] [address] 29122- 2437 Aug, Rheumatoid arthritis of multiple sites with negative rheumatoid factor M06.09 [place] [id number] [place] [address] 08117- 5660 Jul, Morbid obesity due to excess calories E66.01 [facility] [place] [id number] [place] [address] 26504 -4976 May, Sore throat J02.9 [facility] [address] [facility] [id number] [address] 0652 14 May, 2016 Rheumatoid arthritis involving multiple sites with positive rheumatoid factor M05.79 [facility] [address] [address] 3188 14 May, 2016 [facility] [address] [address] 28 Apr, 2016 Acute bacterial conjunctivitis of right eye H10.31 [facility] [address] [address] 8575 Feb, Rheumatoid arthritis M06.9 and Rheumatic heart failure I09.[address] [id number] [address] Nov Rheumatoid arthritis M06.9 [facility] [address] [address] 9563 Nov, Rheumatoid arthritis M06.9 and Rheumatic heart failure I09.81 [facility] [address] [address] 0437 Nov, Left shoulder pain M25.512 ; Rheumatoid arthritis M06.9 and Rheumatic heart failure I09.81 [facility] [address] [address] 8904 Aug, Rheumatoid arthritis M06.9 [facility] [address] [place] [id number] [address] Aug, Acute bacterial conjunctivitis of right eye H10.021 [facility] [address] [facility] [id number] [address] 4504 Jul, Rheumatic heart failure I09.81 [facility] [address] [address]- 6352 Jun, Rheumatoid arthritis M06.9 [facility] [address] [place] [id number] [address]- 9647 Jun, Rheumatoid arthritis M06.9 [facility] [address] [address] 13 Jun, 2015 Hordeolum external, unspecified laterality H00.019 and Seasonal allergies J30.2 [facility] [address] [place] [address] 75900 -5452 09 Jun, 2015 Otitis media of both ears H66.93 ; Sore throat J02.9 and Unspecified perforation of tympanic membrane, right ear H72.91 [facility] [id number] [place] [address] 70953- 4800 21 May, 2015 Rheumatoid arthritis M06.9 [facility] [id number] [place] [address] 22491- 6458 24 Apr, 2015 Rheumatoid arthritis 714.0 [place] [id number] [place] [address] 67695- 5999 18 Apr, 2015 Bilateral knee pain 719.46 and Routine adult health maintenance V70.0 [place] [id number] [place] [address] 38130- 6935 17 Apr, 2015 Bilateral knee pain 719.46 ; Routine adult health maintenance V70.0 and Bilateral elbow joint pain 719.42 [facility] [id number] [place] [address] 56190- 2412 17 Mar, 2015 Contraception, generic surveillance V25.40 [place] [id number] [place] [address] 72906- 7062 14 Mar, 2015 Conjunctivitis 372.30 and Rash 782.1 [place] [id number] [place] [address] 89912- 8051 14 Mar, 2015 [place] [id number] [place] [address] 85955- 0701 14 Nov, 2014 [place] [id number] [place] [address] 49755- 0178 13 Nov, 2014 [place] [address] 74386- 1605 18 Oct, 2014 [facility] [address] [id number] [place] [address]- 3636 17 Oct, 2014 [facility] [place] [facility] [address] [id number] [place] [address]- 0627 17 Oct, 2014 [facility] [place] [facility] [address] [id number] [place] [address]- 4460 14 Oct, 2014 [facility] [place] [facility] [address] [id number] [place] [address]- 5916 14 Oct, 2014 [facility] [place] [facility] [address] [id number] [place] [address]- 5966 Feb, [facility] [place] [facility] [address] [id number] [place] [address]- 5244 Feb, [facility] [place] [facility] [address] [id number] [place] [address]- 0441 December, [facility] [place] [facility] [address] [id number] [place] [address]- 4548 December, [facility] [place] [facility] [address] [id number] [place] [address]- 3262 December, [facility] [place] [facility] [address] [id number] [place] [address]- 5509 December, [facility] [place] [facility] [address] [id number] [place] [address]- 9015 December, [facility] [place] [facility] [address] [id number] [place] [address]- 5282 December, [facility] [place] [facility] [address] [id number] [place] [address]- 8131 December, [facility] [place] [facility] [address] [id number] [place] [address]- 9494 Nov, [facility] [place] [facility] [address] [id number] [place] [address]- 4433 Nov, [facility] [place] [facility] [address] [id number] [place] [address]- 9541 Nov, [facility] [place] [facility] [address] [id number] [place] [address]- 0249 Nov, [facility] [place] [facility] [address] [id number] [place] [address]- 6784 Nov, [facility] [place] [facility] [address] [id number] [place] [address]- 2040 Nov, [facility] [place] [facility] [address] [id number] [place] [address]- 4861 Nov, [facility] [place] [facility] [address] [id number] [place] [address]- 2612 Nov, [facility] [place] [facility] [address] [id number] [place] [address]- 1385 Oct, [facility] [place] [facility] [address] [id number] [place] [address]- 2009 Oct, [facility] [place] [facility] [address] [id number] [place] [address]- 0865 Oct, [facility] [place] [facility] [address] [id number] [place] [address]- 2655 Oct, [facility] [place] [facility] [address] [id number] [place] [address]- 8023 Sep, [facility] [place] [facility] [address] [id number] [place] [address]- 2129 Sep, [facility] [place] [facility] [address] [id number] [place] [address]- 8997 Aug, [facility] [place] [facility] [address] [id number] [place] [address]- 7721 Aug, [facility] [place] [facility] [address] [id number] [place] [address]- 0971 Aug, [facility] [place] [facility] [address] [id number] [place] [address]- 3373 Jul, [facility] [place] [facility] [address] [id number] [place] [address]- 5679 Jul, [facility] [place] [facility] [address] [id number] [place] [address]- 8956 Jul, [facility] [place] [facility] [address] [facility] [id number] [place] [address]- 2546 Jul, [facility] [place] [facility] [address] [id number] [place] [address]- 1631 Jul, [facility] [place] [facility] [address] [id number] [place] [address]- 9620 Jul, [facility] [place] [facility] [address] [id number] [place] [address]- 9201 Jul, [facility] [place] [facility] [address] [id number] [place] [address]- 5994 Jul, [facility] [place] [facility] [address] [id number] [place] [address]- 5032 Jun, [facility] [place] [facility] [address] [id number] [place] [address]- 4052 May, [facility] [place] [facility] [address] [id number] [place] [address]- 4718 May, [facility] [place] [facility] [address] [id number] [place] [address]- 2155 May, [facility] [place] [facility] [address] [id number] [place] [address]- 4274 May, [facility] [place] [facility] [address] [id number] [place] [address]- 3061 May, [facility] [place] [facility] [address] [facility] [id number] [place] [address]- 6756 May, [facility] [place] [facility] [address] [facility] [id number] [place] [address] 2541 May, [facility] [place] [facility] [address] [address]- 1059 Aug, [facility] [address] [address]- 2151 Aug, [facility] [address] 4753 Aug, [facility] [address] [address]38 Jun, [facility] [address] [address]- 6766 Jun, [facility] [address] [place] [address] 74117- 2868 Jun, [facility] [address] [address]- 6329 Jun, [facility] [address] 8150 Jan, [facility] [address] 9489 Jul, [facility] [address] 5445 Jul, [facility] [address] [address]- 4053 May, [facility] [address] [address]- 3521 May, [facility] [address] [id number] [address]- 1478 May, IMMUNIZATIONS No Known Immunizations SOCIAL HISTORY Never Assessed REASON FOR VISIT New med PLAN OF CARE VITAL SIGNS MEDICATIONS Medication Instructions Dosage Frequency Start Date End Date Duration Status Metformin HCl 500 mg Orally Twice a day 1 tablet with meals(take one tablet daily for the first 7 days) 12h 07 Jun, 2017 30 day(s) Active RESULTS No Results PROCEDURES No Known procedures INSTRUCTIONS MEDICATIONS ADMINISTERED No Known Medications MEDICAL (GENERAL) HISTORY Type Description Date Medical History Rheumatoid Arthritis Medical History Blood sugars were high pt. placed on Metformin Hospitalization History childbirth only
--- OUTSIDE RECORDS SUMMARY | 2018-04-28 13:22 | XMS REPORT ---
Author Author JESE HEARN [facility] Address [address] [place] [address] Care Team Providers Care Materials Planner Name Role Phone JESE HEARN Unavailable PROBLEMS Type Condition ICD9-CM Code KKJ24-PT Code Onset Dates Condition Status SNOMED Code Problem Rheumatoid arthritis of multiple sites with negative rheumatoid factor M06.09 Active 952882812 Problem Morbid obesity due to excess calories E66.01 Active 061608526 Problem Rheumatoid arthritis M06.9 Active 99025248 Problem Rheumatoid arthritis involving multiple sites with positive rheumatoid factor M05.79 Active 52365506 Problem Rheumatic heart failure I09.81 Active 57281217 ALLERGIES Unknown Allergies SOCIAL HISTORY No smoking Hx information available PLAN OF CARE VITAL SIGNS MEDICATIONS Unknown Medications RESULTS No Results PROCEDURES No Known procedures IMMUNIZATIONS No Known Immunizations
--- OUTSIDE RECORDS SUMMARY | 2018-04-28 13:22 | XMS REPORT ---
Author Author AMI PACHECO [facility] [employer] Address Unknown Phone Unavailable Care Team Providers Care Hospitality Associate Name Role Phone AMI PACHECO CP Unavailable Allergies, Adverse Reactions, Alerts Substance Reaction Event Type N.K.D.A. Info Not Available Non Drug Allergy Problems Problem Type Condition ICD-9 Code Onset Dates Condition Status Assessment Routine adult health maintenance V70.0 Active Assessment Bilateral elbow joint pain 719.42 Active Assessment Bilateral knee pain 719.46 Active Medications Medication Code System Code Instructions Start Date End Date Status Dosage NuvaRing [facility] [address]-87 0.12-0.015 MG/24HR Vaginal Mar 26, 2015 1 ring Diclofenac Sodium [facility] [address]-06 50 MG Orally Twice a day Apr 26, 2015 1 tablet Procedures Procedure Coding System Code Date Office Visit, Est Pt., Level 4 CPT-4 73625 Apr 26, 2015 Vital Signs Date/Time: Apr 26, 2015 Temperature 97.0 F Weight 210.8 lbs Height 65 in BMI 35.08 Index Blood Pressure Diastolic 80 mmHg Blood Pressure Systolic 132 mmHg Cardiac Monitoring Heart Rate 80 bpm BMIPercentile 97.35 % Wt Percentile 98.19 % Results No Known Results Summary Purpose [employer] Submission
--- OUTSIDE RECORDS SUMMARY | 2018-04-28 13:22 | XMS REPORT ---
Author Author JESE HEARN [facility] Address [address] [place] [address] Care Team Providers Care Wire Winding Machine Tender Name Role Phone JESE HEARN Unavailable PROBLEMS Type Condition ICD9-CM Code BIR39-QS Code Onset Dates Condition Status SNOMED Code Problem Rheumatoid arthritis of multiple sites with negative rheumatoid factor M06.09 Active 045341440 Problem Morbid obesity due to excess calories E66.01 Active 995719200 Problem Rheumatoid arthritis M06.9 Active 67810829 Problem Rheumatoid arthritis involving multiple sites with positive rheumatoid factor M05.79 Active 25455868 Problem Rheumatic heart failure I09.81 Active 71519769 ALLERGIES Unknown Allergies SOCIAL HISTORY No smoking Hx information available PLAN OF CARE VITAL SIGNS MEDICATIONS Unknown Medications RESULTS No Results PROCEDURES No Known procedures IMMUNIZATIONS No Known Immunizations
--- OUTSIDE RECORDS SUMMARY | 2018-04-28 13:22 | XMS REPORT ---
Author Author AUBREY REID Organization [employer] Address Unknown Phone Unavailable Care Team Providers Care Director Shopper Marketing Name Role Phone AUBREY REID CP Unavailable Allergies, Adverse Reactions, Alerts Substance Reaction Event Type N.K.D.A. Info Not Available Non Drug Allergy Problems Problem Type Condition Code Onset Dates Condition Status Problem Rheumatoid arthritis M06.9 Active Assessment Acute bacterial conjunctivitis of right eye H10.021 Active Problem Rheumatic heart failure I09.81 Active Medications Medication Code System Code Instructions Start Date End Date Status Dosage Methotrexate (Anti-Rheumatic) [facility] [address]-62 2.5 MG Orally once weekly May 30, 2015 4 tablets Triamcinolone Acetonide [facility] [address]-58 0.1 % Externally Twice a day Mar 23, 2015 1 application to affected area NuvaRing [facility] [address]-90 0.12-0.015 MG/24HR Vaginal Mar 26, 2015 1 ring Polytrim [facility] [address]-62 92079-8.1 UNIT/ML Ophthalmic Six times a day Aug 20, 2015 Aug 27, 2015 1 drop into affected eye B-6 Folic Acid [facility] [address]-43 400-1000-50 MCG-MCG-MG Orally once daily May 30, 2015 as directed Procedures Procedure Coding System Code Date Office Visit, Est Pt., Level 3 CPT-4 84026 Aug 20, 2015 Vital Signs Date/Time: Aug 20, 2015 Temperature 97.4 F Weight 217.2 lbs Height 65 in BMI 36.14 Index Blood Pressure Diastolic 76 mmHg Blood Pressure Systolic 118 mmHg Cardiac Monitoring Heart Rate 108 bpm BMIPercentile 97.57 % Wt Percentile 98.52 % Results No Known Results Summary Purpose [employer]Clinical[employer] Submission
--- OUTSIDE RECORDS SUMMARY | 2018-04-28 13:22 | XMS REPORT ---
Author Author DASH DEUTSCH Organization [employer] Address Unknown Phone Unavailable Care Team Providers Care Supervisor Compounding And Finishing Name Role Phone DASH DEUTSCH CP Unavailable Allergies, Adverse Reactions, Alerts Substance Reaction Event Type N.K.D.A. Info Not Available Non Drug Allergy Problems Problem Type Condition Code Onset Dates Condition Status Assessment Hordeolum external, unspecified laterality H00.019 Active Assessment Seasonal allergies J30.2 Active Problem Rheumatoid arthritis M06.9 Active Medications Medication Code System Code Instructions Start Date End Date Status Dosage Tobramycin-Dexamethasone [facility] [address]-24 0.3-0.1 % Ophthalmic Once a day Jun 22, 2015 1 application NuvaRing [facility] [address]-54 0.12-0.015 MG/24HR Vaginal Mar 26, 2015 1 ring Amoxicillin [facility] [address]-86 500 MG Orally every 12 hrs Jun 18, 2015 Jun 25, 2015 1 tablet Methotrexate (Anti-Rheumatic) [facility] [address]-97 2.5 MG Orally once weekly May 30, 2015 4 tablets Cetirizine HCl [facility] [address]-83 10 MG Orally Once a day Jun 22, 2015 Aug 21, 2015 1 tablet as needed Triamcinolone Acetonide [facility] [address]-27 0.1 % Externally Twice a day Mar 23, 2015 1 application to affected area B-6 Folic Acid [facility] [address]-83 400-1000-50 MCG-MCG-MG Orally once daily May 30, 2015 as directed Procedures Procedure Coding System Code Date Office Visit, Est Pt., Level 3 CPT-4 51051 Jun 22, 2015 Vital Signs Date/Time: Jun 22, 2015 Temperature 98.2 F Weight 218.4 lbs Height 65 in BMI 36.34 Index Blood Pressure Diastolic 62 mmHg Blood Pressure Systolic 118 mmHg Cardiac Monitoring Heart Rate 100 bpm BMIPercentile 97.7 % Wt Percentile 98.57 % Results No Known Results Summary Purpose [employer]ClinicalWorks Submission
--- OUTSIDE RECORDS SUMMARY | 2018-04-28 13:22 | XMS REPORT ---
Author CHILO Carroll Organization [employer] Address Unknown Phone Unavailable Care Team Providers Care Blending Machine Feeder Name Role Phone CHILO RG CP Unavailable Allergies, Adverse Reactions, Alerts Substance Reaction Event Type N.K.D.A. Info Not Available Non Drug Allergy Problems Problem Type Condition Code Onset Dates Condition Status Problem Rheumatic heart failure I09.81 Active Problem Rheumatoid arthritis M06.9 Active Problem Rheumatoid arthritis involving multiple sites with positive rheumatoid factor M05.79 Active Assessment Sore throat J02.9 Active Medications Medication Code System Code Instructions Start Date End Date Status Dosage NuvaRing [facility] 63379390977 0.12-0.015 MG/24HR Vaginal 1 ring Naprosyn [facility] [address]-13 500 MG Orally every 12 hrs November 12, 2015 1 tablet as needed B-6 Folic Acid [facility] [address]-38 400-1000-50 MCG-MCG-MG Orally once daily May 30, 2015 as directed Methotrexate (Anti-Rheumatic) [facility] 20051500900 2.5 MG Orally once weekly 4 tablets Procedures Procedure Coding System Code Date Office Visit, Est Pt., Level 3 CPT-4 36110 May 28, 2016 STREP A ASSAY W/OPTIC CPT-4 35580 May 28, 2016 Vital Signs Date/Time: May 28, 2016 Cardiac Monitoring Heart Rate 96 bpm Weight 226 lbs Height 65 in BMI 37.60 Index Blood Pressure Diastolic 76 mmHg Blood Pressure Systolic 112 mmHg Results Name Result Date Reference Range Unit Abnormality Flag STREP A (IN HOUSE) ----STREP A Negative [id number] ----Control + [id number] ----Lot # [id number] ----Exp date 01/22/[id number] Summary Purpose [employer]ClinicalWorks Submission
--- OUTSIDE RECORDS SUMMARY | 2018-04-28 13:22 | XMS REPORT ---
Author Author SWATI DILIP [facility] Address [address] [place] [address] Care Team Providers Care Radiological Technologist Name Role Phone TORITO LONGORIAY Unavailable PROBLEMS Type Condition ICD9-CM Code RWN08-KE Code Onset Dates Condition Status SNOMED Code Problem Rheumatoid arthritis involving multiple sites with positive rheumatoid factor M05.79 Active 71749814 Problem Rheumatoid arthritis M06.9 Active 11232442 Problem Vasomotor rhinitis J30.0 Active 1532141 Problem Seasonal allergies J30.2 Active 808075281 Problem Body mass index (BMI) of 40.0-44.9 in adult Z68.41 Active 253701103 Problem Other obesity due to excess calories E66.09 Active 790019091 Problem care, subsequent in second trimester Z34.82 Active 531840166 Problem Obesity complicating , unspecified trimester O99.210 Active 439291036701 ALLERGIES No Information ENCOUNTERS Encounter Location Date Diagnosis [facility] [id number] [place] [address] 41568- 4202 Feb, [facility] [address] [address] 15 Jan, 2018 Diabetes mellitus screening Z13.1 [facility] [id number] [place] [address] 96768- 6002 08 Jan, 2018 care, subsequent in second trimester Z34.82 and 23 weeks gestation of Z3A.23 [facility] [address] 08674- 0651 07 Jan, 2018 [facility] [id number] [place] [address] 70383 -7584 04 Jan, 2018 Seasonal allergies J30.2 ; Vasomotor rhinitis J30.0 and Sore throat J02.9 [place] [address] [place] [address] 21624- 2038 December, care, subsequent in second trimester Z34.82 ; 20 weeks gestation of Z3A.20 ; Evaluate anatomy not seen on prior sonogram Z04.8 and Diabetes mellitus screening Z13.1 [place] [id number] [place] [address] 17755- 0225 Nov, Racing heart beat R00.0 [place] [id number] [place] [address] 59164- 1673 Nov, Racing heart beat R00.0 [place] [id number] [place] [address] 11099- 7829 Nov, [place] [id number] [place] [address] 49625- 1261 Nov, care, subsequent in second trimester Z34.82 and 16 weeks gestation of Z3A.16 [place] [id number] [place] [address] 48558- 9779 Oct, care in first trimester Z34.91 ; Supervision of other high risk pregnancies, first trimester O09.891 ; 12 weeks gestation of Z3A.12 and Red blood cell antibody positive R76.8 [place] [address] [place] [address] 58899- 3418 Sep, [place] [address] [place] [address] 51713- 3507 Sep, care in first trimester Z34.91 and 8 weeks gestation of Z3A.08 [place] [id number] [place] [address] 41030- 0099 Sep, [place] [id number] [place] [address] 24995- 3095 Sep, [place] [id number] [place] [address] 31368- 2965 Sep, [place] [address] [place] [address] 14768- 0063 Sep, Encounter for test Z32.00 [place] [id number] [place] [address] 80979- 7849 Jun, [place] [id number] [place] [address] 70743- 1973 Jun, Infertility counseling Z31.69 [place] [address] 69984- 3157 Jun, Infertility counseling Z31.69 ; Other obesity due to excess calories E66.09 ; Body mass index (BMI) of 40.0-44.9 in adult Z68.41 and BMI 40.0-44.9, adult Z68.41 [facility] [place] [id number] [place] [address] 88701 -9542 Apr, Acute suppurative otitis media of right ear with spontaneous rupture of tympanic membrane, recurrence not specified H66.011 [place] [id number] [place] [address] 34808- 2917 Feb, Bacterial conjunctivitis of right eye H10.9 [facility] [place] [id number] [place] [address] 93154 -7905 Nov, Sore throat J02.9 and Acute upper respiratory infection, unspecified J06.9 [place] [id number] [place] [address] 29659- 1984 Oct, Encounter for test Z32.00 [place] [id number] [place] [address] 46925- 0645 Sep, [place] [address] 29747- 7125 Aug, [facility] [place] [id number] [place] [address] 00059 -3006 Aug, Bacterial conjunctivitis of right eye H10.9 [place] [id number] [address]- 6936 Aug, [facility] [address] [address] 0443 Aug, Rheumatoid arthritis involving multiple sites with positive rheumatoid factor M05.79 [facility] [address] [address] 2651 16 Aug, 2016 Rheumatoid arthritis of multiple sites with negative rheumatoid factor M06.09 [facility] [address] [address]- 3537 Jul, Morbid obesity due to excess calories E66.01 [facility] [address] [address] May, Sore throat J02.9 [facility] [address] [address]- 4566 May, Rheumatoid arthritis involving multiple sites with positive rheumatoid factor M05.79 [facility] [address] [address]- 3185 14 May, 2016 [facility] [address] [address] 28 Apr, 2016 Acute bacterial conjunctivitis of right eye H10.31 [facility] [address] [address]- 2090 Feb, Rheumatoid arthritis M06.9 and Rheumatic heart failure I09.81 [facility] [address] [id number] [place] [address] Nov Rheumatoid arthritis M06.9 [facility] [address] [facility] [id number] [address] 0409 Nov, Rheumatoid arthritis M06.9 and Rheumatic heart failure I09.81 [facility] [address] [facility] [id number] [address]- 6586 04 Nov, 2015 Left shoulder pain M25.512 ; Rheumatoid arthritis M06.9 and Rheumatic heart failure I09.81 [facility] [address] [address] 3035 Aug, Rheumatoid arthritis M06.9 [facility] [address] [place] [address] 11157 -7787 Aug, Acute bacterial conjunctivitis of right eye H10.021 [facility] [id number] [place] [address] 08104- 6796 Jul, Rheumatic heart failure I09.81 [facility] [id number] [place] [address] 24815- 6895 Jun, Rheumatoid arthritis M06.9 [facility] [id number] [place] [address] 29824- 8766 16 Jun, 2015 Rheumatoid arthritis M06.9 [facility] [id number] [place] [address] 60922 -0747 Jun, Hordeolum external, unspecified laterality H00.019 and Seasonal allergies J30.2 [facility] [id number] [place] [address] 64543 -0622 09 Jun, 2015 Otitis media of both ears H66.93 ; Sore throat J02.9 and Unspecified perforation of tympanic membrane, right ear H72.91 [place] [address] [place] [address] 78453- 9494 May, Rheumatoid arthritis M06.9 [place] [id number] [place] [address] 06619- 0796 24 Apr, 2015 Rheumatoid arthritis 714.0 [place] [id number] [place] [address] 28059- 4126 18 Apr, 2015 Bilateral knee pain 719.46 and Routine adult health maintenance V70.0 [place] [address] [place] [address] 57086- 8398 17 Apr, 2015 Bilateral knee pain 719.46 ; Routine adult health maintenance V70.0 and Bilateral elbow joint pain 719.42 [place] [address] [facility] [id number] [place] [address]- 6118 17 Mar, 2015 Contraception, generic surveillance V25.40 [facility] [address] [facility] [id number] [place] [address]- 4436 14 Mar, 2015 Conjunctivitis 372.30 and Rash 782.1 [facility] [id number] [place] [address]- 6456 14 Mar, 2015 [facility] [address] [facility] [id number] [place] [address]- 2954 14 Nov, 2014 [facility] [address] [id number] [place] [address]- 7641 13 Nov, 2014 [facility] [address] [facility] [id number] [place] [address]- 9082 18 Oct, 2014 [facility] [address] [place] [address]- 0056 17 Oct, 2014 [facility] [address] [facility] [id number] [place] [address]- 9216 17 Oct, 2014 [facility] [address] [id number] [place] [address]- 3755 14 Oct, 2014 [facility] [address] [id number] [place] [address]- 6048 14 Oct, 2014 [facility] [address] [id number] [place] [address]- 2314 Feb, [facility] [address] [facility] [id number] [place] [address]- 4375 Feb, [facility] [address] [id number] [place] [address]- 3725 December, [facility] [address] [facility] [id number] [place] [address]- 1195 December, [facility] [address] [id number] [place] [address]- 8240 December, [facility] [place] [facility] [address] [id number] [place] [address]- 6660 December, [facility] [place] [facility] [address] [id number] [place] [address]- 2822 December, [facility] [place] [facility] [address] [id number] [place] [address]- 5146 December, [facility] [place] [facility] [address] [id number] [place] [address]- 2321 December, [facility] [place] [facility] [address] [id number] [place] [address]- 1207 Nov, [facility] [place] [facility] [address] [id number] [place] [address]- 6673 Nov, [facility] [place] [facility] [address] [id number] [place] [address]- 6929 Nov, [facility] [place] [facility] [address] [id number] [place] [address]- 2395 Nov, [facility] [place] [facility] [address] [id number] [place] [address]- 5117 Nov, [facility] [place] [facility] [address] [id number] [place] [address]- 1134 Nov, [facility] [place] [facility] [address] [id number] [place] [address]- 2486 Nov, [facility] [place] [facility] [address] [id number] [place] [address]- 5498 Nov, [facility] [place] [facility] [address] [id number] [place] 7663 Oct, [facility] [place] [facility] [address] [id number] [place] [address]- 2704 Oct, [facility] [place] [facility] [address] [id number] [place] [address]- 3265 05 Oct, 2013 [facility] [place] [facility] [address] [id number] [place] [address]- 4904 Oct, [facility] [place] [facility] [address] [id number] [place] [address]- 9711 Sep, [facility] [place] [facility] [address] [id number] [place] [address]- 6876 Sep, [facility] [place] [facility] [address] [facility] [id number] [place] [address]- 4354 Aug, [facility] [place] [facility] [address] [id number] [address]- 3021 Aug, [facility] [place] [facility] [address] [id number] [place] [address]- 4317 Aug, [facility] [place] [facility] [address] [facility] [id number] [address]- 0938 Jul, [facility] [place] [facility] [address] [facility] [id number] [address]- 9541 Jul, [facility] [place] [facility] [address] [id number] [address]- 8621 Jul, [facility] [place] [facility] [address] [facility] [id number] [address]- 1133 Jul, [facility] [place] [facility] [address] [facility] [id number] [place] [address]- 3756 Jul, [facility] [place] [facility] [address] [facility] [id number] [address]- 4718 Jul, [facility] [place] [facility] [address] [id number] [address]- 1262 Jul, [facility] [place] [facility] [address] [id number] [address]- 3965 Jul, [facility] [place] [facility] [address] [facility] [id number] [place] [address]- 7760 Jun, [facility] [place] [facility] [address] [facility] [id number] [address]- 7502 May, [facility] [place] [facility] [address] [id number] [place] [address]- 7276 May, [facility] [address] [id number] [place] [address]- 0386 May, [facility] [address] [id number] [place] [address]- 9137 May, [facility] [address] [id number] [place] [address]- 1024 May, [facility] [address] [id number] [place] [address]- 7473 May, [facility] [address] [id number] [place] [address]- 1105 May, [facility] [address] [id number] [place] [address]- 1466 Aug, [facility] [address] [id number] [place] [address]- 9780 Aug, [facility] [address] [id number] [place] [address]- 8018 Aug, [facility] [address] [id number] [place] [address]- 0093 Jun, [facility] [address] [id number] [place] [address]- 8418 Jun, [facility] [address] [id number] [place] [address]- 8469 Jun, [facility] [address] [id number] [place] [address]- 1265 Jun, [facility] [place] [facility] [address] [id number] [place] [address]- 9148 Jan, [facility] [place] [facility] [address] [id number] [place] [address]- 2469 Jul, [facility] [address] [id number] [place] [address]- 6375 Jul, [facility] [address] [facility] [id number] [place] 7821 May, [facility] [address] [facility] [id number] [place] [address]- 7410 May, [facility] [address] [facility] [id number] [place] 2815 May, IMMUNIZATIONS No Known Immunizations SOCIAL HISTORY [...]
--- OUTSIDE RECORDS SUMMARY | 2018-04-28 13:22 | XMS REPORT ---
Author Author AUBREY REID Organization [employer] Address Unknown Phone Unavailable Care Team Providers Care Family And Consumer Sciences Professor Name Role Phone AUBREY REID CP Unavailable Allergies, Adverse Reactions, Alerts Substance Reaction Event Type N.K.D.A. Info Not Available Non Drug Allergy Problems Problem Type Condition Code Onset Dates Condition Status Assessment Otitis media of both ears H66.93 Active Assessment Sore throat J02.9 Active Problem Rheumatoid arthritis M06.9 Active Assessment Unspecified perforation of tympanic membrane, right ear H72.91 Active Medications Medication Code System Code Instructions Start Date End Date Status Dosage Amoxicillin [facility] [address]-49 500 MG Orally every 12 hrs Jun 18, 2015 Jun 25, 2015 1 tablet Procedures Procedure Coding System Code Date Office Visit, Est Pt., Level 3 CPT-4 71335 Jun 18, 2015 STREP A ASSAY W/OPTIC CPT-4 44211 Jun 18, 2015 Vital Signs Date/Time: Jun 18, 2015 Cardiac Monitoring Heart Rate 76 bpm Temperature 98 F Height 65 in Blood Pressure Diastolic 78 mmHg Blood Pressure Systolic 122 mmHg Results Name Result Date Reference Range Unit Abnormality Flag STREP A (IN HOUSE) Summary Purpose [employer] Submission
--- OUTSIDE RECORDS SUMMARY | 2018-04-28 13:23 | XMS REPORT ---
Author Author BECKA SAL Organization [facility] Address [address] [place] [address] Care Team Providers Care Electron Gun Inspector Name Role Phone BECKA SAL Unavailable PROBLEMS Type Condition ICD9-CM Code UAR06-QZ Code Onset Dates Condition Status SNOMED Code Problem Obesity complicating , unspecified trimester O99.210 Active 962518589491 Problem Body mass index (BMI) of 40.0-44.9 in adult Z68.41 Active 358200686 Problem Rheumatoid arthritis M06.9 Active 67760189 Problem Other obesity due to excess calories E66.09 Active 098947746 Problem Rheumatoid arthritis involving multiple sites with positive rheumatoid factor M05.79 Active 46314558 ALLERGIES No Information ENCOUNTERS Encounter Location Date Diagnosis [facility] [id number] [place] [address] 00542- 9187 Feb, [facility] [id number] [place] [address] 42984- 6919 Jan, [place] [id number] [place] [address] 52312- 1782 December, care, subsequent in second trimester Z34.82 ; 20 weeks gestation of Z3A.20 ; Evaluate anatomy not seen on prior sonogram Z04.8 and Diabetes mellitus screening Z13.1 [facility] [id number] [place] [address] 58319- 6859 Nov, Racing heart beat R00.0 [facility] [id number] [place] [address] 71370- 6903 Nov, Racing heart beat R00.0 [place] [id number] [place] [address] 41003- 5213 Nov, [place] [address], [place] [address] 2674 Nov, care, subsequent in second trimester Z34.82 and 16 weeks gestation of Z3A.16 [place] [id number] [place] [address] 94266- 8385 Oct, care in first trimester Z34.91 ; Supervision of other high risk pregnancies, first trimester O09.891 ; 12 weeks gestation of Z3A.12 and Red blood cell antibody positive R76.8 [place] [address] [place] [address] 94539- 8114 Sep, [place] [id number] [place] [address] 99742- 9226 Sep, care in first trimester Z34.91 and 8 weeks gestation of Z3A.08 [place] [id number] [place] [address] 17885- 4892 08 Sep, 2017 [place] [id number] [place] [address] 34258- 6488 07 Sep, 2017 [place] [id number] [place] [address] 37989- 6014 Sep, [place] [address] [place] [address] 66524- 4591 Sep, Encounter for test Z32.00 [place] [id number] [place] [address] 58358- 3757 Jun, [place] [address] [place] [address] 61082- 2954 02 Jun, 2017 Infertility counseling Z31.69 [place] [id number] [place] [address] 94474- 3889 Jun, Infertility counseling Z31.69 ; Other obesity due to excess calories E66.09 ; Body mass index (BMI) of 40.0-44.9 in adult Z68.41 and BMI 40.0-44.9, adult Z68.41 [facility] [place] [id number] [place] [address] 92115 -5111 23 Apr, 2017 Acute suppurative otitis media of right ear with spontaneous rupture of tympanic membrane, recurrence not specified H66.011 [place] [id number] [place] [address] 01550- 6578 Feb, Bacterial conjunctivitis of right eye H10.9 [facility] [place] [id number] [place] [address] 69741 -1869 Nov, Sore throat J02.9 and Acute upper respiratory infection, unspecified J06.9 [place] [address] 93017- 0404 Oct, Encounter for test Z32.00 [place] [id number] [place] [address] 61012- 5224 Sep, [place] [address] 00631- 6110 Aug, [facility] [place] [id number] [place] [address] 45330 -6732 Aug, Bacterial conjunctivitis of right eye H10.9 [place] [id number] [place] [address] 10177- 8856 Aug, [place] [id number] [place] [address] 73801- 4872 Aug, Rheumatoid arthritis involving multiple sites with positive rheumatoid factor M05.79 [place] [id number] [place] [address] 91256- 6583 Aug, Rheumatoid arthritis of multiple sites with negative rheumatoid factor M06.09 [place] [id number] [place] [address] 45403- 1769 Jul, Morbid obesity due to excess calories E66.01 [facility] [place] [id number] [place] [address] 08501 -5718 May, Sore throat J02.9 [facility] [address] [facility] [id number] [address] 6157 14 May, 2016 Rheumatoid arthritis involving multiple sites with positive rheumatoid factor M05.79 [facility] [address], [place] [address]- 5585 14 May, 2016 [facility] [address], [place] [address] 28 Apr, 2016 Acute bacterial conjunctivitis of right eye H10.31 [facility] [address], [place] [address]- 8615 Feb, Rheumatoid arthritis M06.9 and Rheumatic heart failure I09.[address] [id number] [place] [address] Nov Rheumatoid arthritis M06.9 [facility] [address], [place] [address]- 2085 Nov, Rheumatoid arthritis M06.9 and Rheumatic heart failure I09.81 [facility] [address], [place] [address]- 5771 Nov, Left shoulder pain M25.512 ; Rheumatoid arthritis M06.9 and Rheumatic heart failure I09.81 [facility] [address], [place] [address]- 4990 Aug, Rheumatoid arthritis M06.9 [facility] [id number] [address] Aug, Acute bacterial conjunctivitis of right eye H10.021 [facility] [address] [facility] [id number] [address]- 9068 Jul, Rheumatic heart failure I09.81 [facility] [address] [address]- 9869 Jun, Rheumatoid arthritis M06.9 [facility] [id number] [address] 2802 Jun, Rheumatoid arthritis M06.9 [facility] [address] [address] 13 Jun, 2015 Hordeolum external, unspecified laterality H00.019 and Seasonal allergies J30.2 [facility] [address] [place] [address] 28286 -1110 09 Jun, 2015 Otitis media of both ears H66.93 ; Sore throat J02.9 and Unspecified perforation of tympanic membrane, right ear H72.91 [facility] [id number] [place] [address] 45749- 2738 21 May, 2015 Rheumatoid arthritis M06.9 [facility] [id number] [place] [address] 54480- 4384 24 Apr, 2015 Rheumatoid arthritis 714.0 [place] [id number] [place] [address] 62561- 5943 18 Apr, 2015 Bilateral knee pain 719.46 and Routine adult health maintenance V70.0 [place] [id number] [place] [address] 75363- 5220 17 Apr, 2015 Bilateral knee pain 719.46 ; Routine adult health maintenance V70.0 and Bilateral elbow joint pain 719.42 [facility] [id number] [place] [address] 83938- 0896 17 Mar, 2015 Contraception, generic surveillance V25.40 [place] [id number] [place] [address] 63081- 8853 14 Mar, 2015 Conjunctivitis 372.30 and Rash 782.1 [place] [id number] [place] [address] 88927- 7821 14 Mar, 2015 [place] [id number] [place] [address] 99528- 0507 14 Nov, 2014 [place] [id number] [place] [address] 99629- 3281 13 Nov, 2014 [place] [address] 03137- 1510 18 Oct, 2014 [facility] [address] [id number] [place] [address]- 1213 17 Oct, 2014 [facility] [place] [facility] [address] [id number] [place] [address]- 3367 17 Oct, 2014 [facility] [place] [facility] [address] [id number] [place] [address]- 7332 14 Oct, 2014 [facility] [place] [facility] [address] [id number] [place] [address]- 0739 14 Oct, 2014 [facility] [place] [facility] [address] [id number] [place] [address]- 5417 Feb, [facility] [place] [facility] [address] [id number] [place] [address]- 7336 Feb, [facility] [place] [facility] [address] [id number] [place] [address]- 2981 December, [facility] [place] [facility] [address] [id number] [place] [address]- 0666 December, [facility] [place] [facility] [address] [id number] [place] [address]- 2802 December, [facility] [place] [facility] [address] [id number] [place] [address]- 9820 December, [facility] [place] [facility] [address] [id number] [place] [address]- 5550 December, [facility] [place] [facility] [address] [id number] [place] [address]- 2338 December, [facility] [place] [facility] [address] [id number] [place] [address]- 5753 December, [facility] [place] [facility] [address] [id number] [place] [address]- 2051 Nov, [facility] [place] [facility] [address] [id number] [place] [address]- 3684 Nov, [facility] [place] [facility] [address] [id number] [place] [address]- 1594 Nov, [facility] [place] [facility] [address] [id number] [place] [address]- 2340 Nov, [facility] [place] [facility] [address] [id number] [place] [address]- 5909 Nov, [facility] [place] [facility] [address] [id number] [place] [address]- 0114 Nov, [facility] [place] [facility] [address] [id number] [place] [address]- 4616 Nov, [facility] [place] [facility] [address] [id number] [place] [address]- 4942 Nov, [facility] [place] [facility] [address] [id number] [place] [address]- 3170 Oct, [facility] [place] [facility] [address] [id number] [place] [address]- 2169 Oct, [facility] [place] [facility] [address] [id number] [place] [address]- 8906 Oct, [facility] [place] [facility] [address] [id number] [place] [address]- 5678 Oct, [facility] [place] [facility] [address] [id number] [place] [address]- 5295 Sep, [facility] [place] [facility] [address] [id number] [place] [address]- 8564 Sep, [facility] [place] [facility] [address] [id number] [place] [address]- 3068 Aug, [facility] [place] [facility] [address] [id number] [place] [address]- 8631 Aug, [facility] [place] [facility] [address] [id number] [place] [address]- 5046 Aug, [facility] [place] [facility] [address] [id number] [place] [address]- 0741 Jul, [facility] [place] [facility] [address] [id number] [place] [address]- 5937 Jul, [facility] [place] [facility] [address] [id number], [place] [address]- 4603 Jul, [facility] [place] [facility] [address] [facility] [id number] [place] [address]- 2546 Jul, [facility] [place] [facility] [address] [id number], [place] [address]- 7841 Jul, [facility] [place] [facility] [address] [id number] [place] [address]- 9712 Jul, [facility] [place] [facility] [address] [id number], [place] [address]- 2020 Jul, [facility] [place] [facility] [address] [id number], [place] [address]- 3080 Jul, [facility] [place] [facility] [address] [id number], [place] [address]- 0858 Jun, [facility] [place] [facility] [address] [id number], [place] [address]- 0730 May, [facility] [place] [facility] [address] [id number], [place] [address]- 3489 May, [facility] [place] [facility] [address] [id number], [place] [address]- 4703 May, [facility] [place] [facility] [address] [id number], [place] [address]- 1666 May, [facility] [place] [facility] [address] [id number], [place] [address]- 7613 May, [facility] [place] [facility] [address] [facility] [id number], [place] [address]- 7133 May, [facility] [place] [facility] [address] [facility] [id number], [place] [address] 2549 May, [facility] [place] [facility] [address], [place] [address]- 4273 Aug, [facility] [address] 6163 Aug, [facility] [address] [address] 7495 Aug, [facility] [address]- 4570 Jun, [facility] [address] 7511 Jun, [facility] [address] [place] [address] 97031- 7578 Jun, [facility] [address] [place] [address] 933726- 4203 Jun, [facility] [id number] [place] [address] 621049- 7104 Jan, [facility] [address] 2871 Jul, [facility] [address] [address] 8255 Jul, [facility] [address], [place] [address]- 6129 May, [facility] [address] 6140 May, [facility] [address], [place] [address]- 1754 May, IMMUNIZATIONS No Known Immunizations SOCIAL HISTORY Never Assessed REASON FOR VISIT Lab (walk-in) PLAN OF CARE VITAL SIGNS MEDICATIONS Unknown Medications RESULTS No Results PROCEDURES Procedure Date Ordered Result Body Site COMPREHEN METABOLIC PANEL Jun 11, 2017 COMPLETE CBC W/AUTO DIFF WBC Jun 11, 2017 VENIPUNCT, ROUTINE* Jun 11, 2017 Hemoglobin Test Send Out 0 dollar Jun 11, 2017 GONADOTROPIN (FSH) Jun 11, 2017 ASSAY OF INSULIN Jun 11, 2017 ASSAY OF PROLACTIN Jun 11, 2017 GONADOTROPIN (LH) Jun 11, 2017 INSTRUCTIONS MEDICATIONS ADMINISTERED No Known Medications MEDICAL (GENERAL) HISTORY Type Description Date Medical History Rheumatoid Arthritis Medical History Blood sugars were high pt. placed on Metformin Hospitalization History childbirth only
--- OUTSIDE RECORDS SUMMARY | 2018-04-28 13:23 | XMS REPORT ---
Author JESE Cain [facility] eClinical[employer] Address Unknown Phone Unavailable Care Team Providers Care Rough Rice Grader Name Role Phone JESE HEARN Unavailable Allergies No Known Allergies Problems Problem Type Condition Code Onset Dates Condition Status Problem Rheumatoid arthritis M06.9 Active Assessment Rheumatoid arthritis M06.9 Active Problem Rheumatic heart failure I09.81 Active Medications No Known Medications Results No Known Results Summary Purpose eClinicalWorks Submission
--- OUTSIDE RECORDS SUMMARY | 2018-04-28 13:23 | XMS REPORT ---
Author Author HEARN JESE Organization [facility] Address [address] [place] [address] Care Team Providers Care Cherry Pitter Name Role Phone JESE HEARN Unavailable PROBLEMS Type Condition ICD9-CM Code WFS06-BR Code Onset Dates Condition Status SNOMED Code Problem Rheumatoid arthritis of multiple sites with negative rheumatoid factor M06.09 Active 104039905 Problem Morbid obesity due to excess calories E66.01 Active 591150926 Problem Rheumatoid arthritis M06.9 Active 24814044 Problem Rheumatoid arthritis involving multiple sites with positive rheumatoid factor M05.79 Active 05987625 Problem Rheumatic heart failure I09.81 Active 77162165 ALLERGIES Substance Reaction Event Type Date Status N.K.D.A. Unknown Non Drug Allergy Jul, Unknown SOCIAL HISTORY No smoking Hx information available PLAN OF CARE Activity Details Follow Up 4 Weeks, prn Reason: VITAL SIGNS Height 65 in 2016-07-28 Weight 239.1 lbs 2016-07-28 Temperature 97.7 degrees Fahrenheit 2016-07-28 Heart Rate 88 bpm 2016-07-28 Respiratory Rate 18 2016-07-28 BMI 39.78 kg/m2 2016-07-28 Blood pressure systolic 142 mmHg 2016-07-28 Blood pressure diastolic 86 mmHg 2016-07-28 MEDICATIONS Medication Instructions Dosage Frequency Start Date End Date Duration Status Contrave 8-90 MG Orally Twice a day one tablet daily x 7 then bid x 7 then two in AM AND ONE IN PM THEN TWO BID 12h Jul, Aug, 30 day(s ) Active Naprosyn 500 MG Orally every 12 hrs 1 tablet as needed 12h Nov, Active NuvaRing 0.12-0.015 MG/24HR 1 ring 28 Active B-6 Folic Acid 400-1000-50 MCG-MCG-MG Orally once daily as directed 24h 21 May, 2015 Active Methotrexate (Anti-Rheumatic) 2.5 MG Orally once weekly 4 tablets 28 Active RESULTS No Results PROCEDURES Procedure Date Ordered Related Diagnosis Body Site Office Visit, Est Pt., Level 3 Jul 28, 2016 IMMUNIZATIONS No Known Immunizations
--- OUTSIDE RECORDS SUMMARY | 2018-04-28 13:23 | XMS REPORT ---
Author Author CHILO RG [facility] Address [address] [place] [address] Care Team Providers Care Marsh Buggy Operator Name Role Phone CHILO RG Unavailable PROBLEMS Type Condition ICD9-CM Code NJQ61-UP Code Onset Dates Condition Status SNOMED Code Problem Rheumatic heart failure I09.81 Active 84484721 Problem Rheumatoid arthritis M06.9 Active 14585024 Assessment Acute bacterial conjunctivitis of right eye H10.31 Apr, Active 503873880 ALLERGIES Substance Reaction Event Type Date Status N.K.D.A. Unknown Non Drug Allergy Apr, Unknown SOCIAL HISTORY No smoking Hx information available PLAN OF CARE VITAL SIGNS Height 65 in 2016-05-07 Weight 228.4 lbs 2016-05-07 Heart Rate 100 bpm 2016-05-07 Respiratory Rate 20 2016-05-07 BMI 38.00 kg/m2 2016-05-07 Blood pressure systolic 110 mmHg 2016-05-07 Blood pressure diastolic 72 mmHg 2016-05-07 MEDICATIONS Medication Instructions Dosage Frequency Start Date End Date Duration Status Erythromycin 5 MG/GM Ophthalmic 4 times a day 1 application to affected area 6h Apr, May, 07 days Active B-6 Folic Acid 400-1000-50 MCG-MCG-MG Orally once daily as directed 24h May, Active Methotrexate (Anti-Rheumatic) 2.5 MG Orally once weekly 4 tablets 28 Active Polymyxin B-Trimethoprim 48660-7.1 UNIT/ML Active Naprosyn 500 MG Orally every 12 hrs 1 tablet as needed 12h Nov, Active NuvaRing 0.12-0.015 MG/24HR 1 ring 28 Active RESULTS No Results PROCEDURES Procedure Date Ordered Related Diagnosis Body Site Office Visit, Est Pt., Level 2 May 07, 2016 IMMUNIZATIONS No Known Immunizations
--- OUTSIDE RECORDS SUMMARY | 2018-04-28 13:23 | XMS REPORT ---
Author Author BECKA SAL Organization [facility] Address [address] [place] [address] Care Team Providers Care Sas Developer Analyst Name Role Phone BECKA SAL Unavailable PROBLEMS Type Condition ICD9-CM Code UMN52-IS Code Onset Dates Condition Status SNOMED Code Problem Obesity complicating , unspecified trimester O99.210 Active 045031840107 Problem Body mass index (BMI) of 40.0-44.9 in adult Z68.41 Active 155818282 Problem Rheumatoid arthritis M06.9 Active 91602036 Problem Other obesity due to excess calories E66.09 Active 411117492 Problem Rheumatoid arthritis involving multiple sites with positive rheumatoid factor M05.79 Active 30533364 ALLERGIES No Known Allergies ENCOUNTERS Encounter Location Date Diagnosis [facility] [id number] [place] [address] 29296- 1736 Feb, [place] [id number] [place] [address] 92605- 5077 Jan, [place] [id number] [place] [address] 77344- 4618 December, care, subsequent in second trimester Z34.82 ; 20 weeks gestation of Z3A.20 ; Evaluate anatomy not seen on prior sonogram Z04.8 and Diabetes mellitus screening Z13.1 [facility] [id number] [place] [address] 20404- 6577 Nov, Racing heart beat R00.0 [place] [id number] [place] [address] 21199- 4598 Nov, Racing heart beat R00.0 [place] [id number] [place] [address] 25363- 4137 Nov, [place] [address] [address] 8227 Nov, care, subsequent in second trimester Z34.82 and 16 weeks gestation of Z3A.16 [place] [id number] [place] [address] 06194- 6658 Oct, care in first trimester Z34.91 ; Supervision of other high risk pregnancies, first trimester O09.891 ; 12 weeks gestation of Z3A.12 and Red blood cell antibody positive R76.8 [place] [id number] [place] [address] 96428- 8151 Sep, [place] [id number] [place] [address] 38307- 6753 Sep, care in first trimester Z34.91 and 8 weeks gestation of Z3A.08 [place] [id number] [place] [address] 54111- 8322 08 Sep, 2017 [place] [id number] [place] [address] 51085- 0155 Sep, [place] [id number] [place] [address] 47210- 0057 Sep, [place] [id number] [place] [address] 84855- 0900 Sep, Encounter for test Z32.00 [place] [id number] [place] [address] 75451- 1845 Jun, [place] [id number] [place] [address] 15328- 8295 Jun, Infertility counseling Z31.69 [place] [id number] [place] [address] 21406- 3560 Jun, Infertility counseling Z31.69 ; Other obesity due to excess calories E66.09 ; Body mass index (BMI) of 40.0-44.9 in adult Z68.41 and BMI 40.0-44.9, adult Z68.41 [facility] [place] [id number] [place] [address] 31216 -4100 23 Apr, 2017 Acute suppurative otitis media of right ear with spontaneous rupture of tympanic membrane, recurrence not specified H66.011 [place] [id number] [place] [address] 81105- 4664 Feb, Bacterial conjunctivitis of right eye H10.9 [facility] [place] [address] [address] -4083 Nov, Sore throat J02.9 and Acute upper respiratory infection, unspecified J06.9 [place] [address] 10787- 9286 Oct, Encounter for test Z32.00 [place] [id number] [place] [address] 37244- 7690 Sep, [place] [address] 57047- 1595 Aug, [facility] [place] [id number] [place] [address] 51801 -9119 Aug, Bacterial conjunctivitis of right eye H10.9 [place] [id number] [place] [address] 48298- 8897 Aug, [place] [id number] [place] [address] 89777- 1089 Aug, Rheumatoid arthritis involving multiple sites with positive rheumatoid factor M05.79 [place] [id number] [place] [address] 79214- 6051 Aug, Rheumatoid arthritis of multiple sites with negative rheumatoid factor M06.09 [place] [id number] [place] [address] 73105- 5035 Jul, Morbid obesity due to excess calories E66.01 [facility] [place] [id number] [place] [address] 09306 -2833 May, Sore throat J02.9 [facility] [address] [facility] [place] [id number] [address] 7714 14 May, 2016 Rheumatoid arthritis involving multiple sites with positive rheumatoid factor M05.79 [facility] [address] [facility] [place] [id number] [address]- 0637 14 May, 2016 [facility] [id number] [address] Apr, Acute bacterial conjunctivitis of right eye H10.31 [facility] [address] [address] 8914 Feb, Rheumatoid arthritis M06.9 and Rheumatic heart failure I09.[address] [id number] [place] [address] Nov Rheumatoid arthritis M06.9 [facility] [address], [place] [address]- 6851 Nov, Rheumatoid arthritis M06.9 and Rheumatic heart failure I09.81 [facility] [address] [address]- 1228 Nov, Left shoulder pain M25.512 ; Rheumatoid arthritis M06.9 and Rheumatic heart failure I09.81 [facility] [address] [address]- 6208 Aug, Rheumatoid arthritis M06.9 [facility] [id number] [address] Aug, Acute bacterial conjunctivitis of right eye H10.021 [facility] [address] [facility] [place] [id number] [address] 0157 Jul, Rheumatic heart failure I09.81 [facility] [address] [address]- 3934 Jun, Rheumatoid arthritis M06.9 [facility] [id number] [address]- 8367 Jun, Rheumatoid arthritis M06.9 [facility] [address] [place] [address] 08250 -9235 13 Jun, 2015 Hordeolum external, unspecified laterality H00.019 and Seasonal allergies J30.2 [facility]ALK IN [facility] [address] [place] [address] 74395 -2777 09 Jun, 2015 Otitis media of both ears H66.93 ; Sore throat J02.9 and Unspecified perforation of tympanic membrane, right ear H72.91 [facility] [id number] [place] [address] 92222- 1095 21 May, 2015 Rheumatoid arthritis M06.9 [facility] [id number] [place] [address] 95247- 6529 24 Apr, 2015 Rheumatoid arthritis 714.0 [place] [id number] [place] [address] 69999- 8292 18 Apr, 2015 Bilateral knee pain 719.46 and Routine adult health maintenance V70.0 [facility] [id number] [place] [address] 80268- 7680 17 Apr, 2015 Bilateral knee pain 719.46 ; Routine adult health maintenance V70.0 and Bilateral elbow joint pain 719.42 [facility] [id number] [place] [address] 97280- 6244 17 Mar, 2015 Contraception, generic surveillance V25.40 [place] [id number] [place] [address] 98705- 3423 14 Mar, 2015 Conjunctivitis 372.30 and Rash 782.1 [place] [id number] [place] [address] 43162- 3844 14 Mar, 2015 [place] [address] 37037- 5295 14 Nov, 2014 [place] [id number] [place] [address] 39754- 4800 13 Nov, 2014 [place] [address] 62068- 7242 18 Oct, 2014 [facility] [address] [id number] [place] [address]- 1920 17 Oct, 2014 [facility] [place] [facility] [address] [id number] [place] [address]- 6952 17 Oct, 2014 [facility] [place] [facility] [address] [id number] [place] [address]- 1400 14 Oct, 2014 [facility] [place] [facility] [address] [id number] [place] [address]- 7800 14 Oct, 2014 [facility] [place] [facility] [address] [id number] [place] [address]- 7672 Feb, [facility] [place] [facility] [address] [id number] [place] [address]- 2531 Feb, [facility] [address] [id number] [place] [address]- 1422 December, [facility] [place] [facility] [address] [id number] [place] [address]- 4395 December, [facility] [address] [id number] [place] [address]- 0859 December, [facility] [place] [facility] [address] [id number] [place] [address]- 9092 December, [facility] [address] [id number] [place] [address]- 1680 December, [facility] [place] [facility] [address] [id number] [place] [address]- 2783 December, [facility] [place] [facility] [address] [id number] [place] [address]- 1213 December, [facility] [place] [facility] [address] [id number] [place] [address]- 2034 Nov, [facility] [place] [facility] [address] [id number] [place] [address]- 8833 Nov, [facility] [place] [facility] [address] [id number] [place] [address]- 2488 Nov, [facility] [place] [facility] [address] [id number] [place] [address]- 4473 Nov, [facility] [place] [facility] [address] [id number] [place] [address]- 0746 Nov, [facility] [place] [facility] [address] [id number] [place] [address]- 4338 Nov, [facility] [place] [facility] [address] [id number] [place] [address]- 1191 Nov, [facility] [place] [facility] [address] [id number] [place] [address]- 3401 Nov, [facility] [place] [facility] [address] [id number] [place] [address]- 2978 Oct, [facility] [place] [facility] [address] [id number] [place] [address]- 3119 Oct, [facility] [place] [facility] [address] [id number] [place] [address]- 7854 Oct, [facility] [place] [facility] [address] [id number] [place] [address]- 2208 Oct, [facility] [place] [facility] [address] [id number] [place] [address]- 8134 Sep, [facility] [place] [facility] [address] [id number] [place] [address]- 6873 Sep, [facility] [place] [facility] [address] [id number] [place] [address]- 5433 Aug, [facility] [place] [facility] [address] [id number] [place] [address]- 6267 Aug, [facility] [place] [facility] [address] [id number] [place] [address]- 7623 Aug, [facility] [place] [facility] [address] [id number] [place] [address]- 0029 Jul, [facility] [place] [facility] [address] [id number] [place] [address]- 4309 Jul, [facility] [place] [facility] [address] [id number], [place] [address]- 7751 Jul, [facility] [place] [facility] [address] [facility] [place] [id number] [place] [address]- 7870 Jul, 2012 [facility] [place] [facility] [address] [id number], [place] [address]- 0137 Jul, 2012 [facility] [place] [facility] [address] [id number] [place] [address]- 3365 Jul, [facility] [place] [facility] [address] [id number], [place] [address]- 1378 Jul, [facility] [place] [facility] [address] [id number], [place] [address]- 8123 Jul, [facility] [place] [facility] [address] [id number], [place] [address]- 5379 Jun, [facility] [place] [facility] [address] [id number], [place] [address]- 8095 May, [facility] [place] [facility] [address] [id number][place] [address]- 5052 May, [facility] [place] [facility] [address] [id number][place] [address]- 7438 May, [facility] [place] [facility] [address] [id number], [place] [address]- 3801 May, [facility] [place] [facility] [address] [id number], [place] [address]- 8041 May, [facility] [place] [facility] [address] [facility] [id number] [address]- 0905 May, [facility] [place] [facility] [address] [id number][place] [address]- 7299 May, [facility] [place] [facility] [address], [place] [address]- 4426 Aug, [facility] [address] [address]- 5051 Aug, [facility] [address], [place] [address]- 8829 Aug, [facility] [address] [address]- 1848 Jun, [facility] [address], [place] [address]- 5744 Jun, [facility] [address] [place] [address] 75826- 5524 Jun, [facility] [address], [place] [address]- 8943 Jun, [facility] [address] [address]- 7581 Jan, [facility] [address], [place] [address]- 4887 Jul, [facility] [address], [place] [address]- 1115 Jul, [facility] [address] 4498 May, [facility] [address] [address]- 0537 May, [facility] [id number] [address]- 5583 May, IMMUNIZATIONS No Known Immunizations SOCIAL HISTORY Never Assessed REASON FOR VISIT Fertility, Has been trying to get x7 months-ROXANA Heard PLAN OF CARE Activity Details Follow Up Will call labs Reason: VITAL SIGNS Height 65 in 2017-06-10 Weight 241 lbs 2017-06-10 Temperature 98.1 degrees Fahrenheit 2017-06-10 Heart Rate 100 bpm 2017-06-10 Respiratory Rate 18 2017-06-10 BMI 40.10 kg/m2 2017-06-10 Blood pressure systolic 118 mmHg 2017-06-10 Blood pressure diastolic 86 mmHg 2017-06-10 MEDICATIONS Medication Instructions Dosage Frequency Start Date End Date Duration Status B-6 Folic Acid 400-1000-50 MCG-MCG-MG Orally once daily as directed 24h May, Active RESULTS No Results PROCEDURES No Known procedures INSTRUCTIONS MEDICATIONS ADMINISTERED No Known Medications MEDICAL (GENERAL) HISTORY Type Description Date Medical History Rheumatoid Arthritis Medical History Blood sugars were high pt. placed on Metformin Hospitalization History childbirth only
--- OUTSIDE RECORDS SUMMARY | 2018-04-28 13:23 | XMS REPORT ---
Author JESE Cain [facility] eClinical[employer] Address Unknown Phone Unavailable Care Team Providers Care Dental Resident Name Role Phone JESE HEARN Unavailable Allergies No Known Allergies Problems Problem Type Condition Code Onset Dates Condition Status Problem Rheumatoid arthritis M06.9 Active Assessment Rheumatic heart failure I09.81 Active Problem Rheumatic heart failure I09.81 Active Medications No Known Medications Results No Known Results Summary Purpose eClinicalWorks Submission
--- OUTSIDE RECORDS SUMMARY | 2018-04-28 13:24 | XMS REPORT ---
Author EJSE Cain [facility] e[employer] Address Unknown Phone Unavailable Care Team Providers Care Ict Account Manager Name Role Phone JESE HEARN Unavailable Allergies No Known Allergies Problems Problem Type Condition Code Onset Dates Condition Status Assessment Rheumatoid arthritis M06.9 Active Problem Rheumatoid arthritis M06.9 Active Medications No Known Medications Results No Known Results Summary Purpose eClinicalWorks Submission
--- OUTSIDE RECORDS SUMMARY | 2018-04-28 13:24 | XMS REPORT ---
Author JESE Cain Organization [employer] Address Unknown Phone Unavailable Care Team Providers Care Chief Operating Officer Name Role Phone JESE HEARN CP Unavailable Allergies, Adverse Reactions, Alerts Substance Reaction Event Type N.K.D.A. Info Not Available Non Drug Allergy Problems Problem Type Condition Code Onset Dates Condition Status Assessment Rheumatoid arthritis M06.9 Active Problem Rheumatoid arthritis M06.9 Active Medications Medication Code System Code Instructions Start Date End Date Status Dosage Tobramycin-Dexamethasone [facility] [address]-12 0.3-0.1 % Ophthalmic Once a day Jun 22, 2015 1 application B-[address] [facility] [address]-99 400-1000-50 MCG-MCG-MG Orally once daily May 30, 2015 as directed NuvaRing [facility] [address]-55 0.12-0.015 MG/24HR Vaginal Mar 26, 2015 1 ring Cetirizine HCl [facility] [address]-37 10 MG Orally Once a day Jun 22, 2015 Aug 21, 2015 1 tablet as needed Amoxicillin [facility] [address]-74 500 MG Orally every 12 hrs Jun 18, 2015 Jun 25, 2015 1 tablet Methotrexate (Anti-Rheumatic) [facility] [address]-52 2.5 MG Orally once weekly May 30, 2015 4 tablets Triamcinolone Acetonide [facility] [address]-02 0.1 % Externally Twice a day Mar 23, 2015 1 application to affected area Procedures Procedure Coding System Code Date Office Visit, Est Pt., Level 3 CPT-4 97401 Jun 25, 2015 Vital Signs Date/Time: Jun 25, 2015 Temperature 98.1 F Weight 219 lbs Height 65 in BMI 36.44 Index Blood Pressure Diastolic 80 mmHg Blood Pressure Systolic 122 mmHg Cardiac Monitoring Heart Rate 80 bpm BMIPercentile 97.73 % Wt Percentile 98.59 % Results No Known Results Summary Purpose eClinicalWorks Submission
--- OUTSIDE RECORDS SUMMARY | 2018-04-28 13:25 | XMS REPORT ---
Author Author JESE HEARN [facility] eClinicalWorks Address Unknown Phone Unavailable Care Team Providers Care [employer] Medic Name Role Phone JESE HEARN Unavailable Allergies No Known Allergies Problems Problem Type Condition Code Onset Dates Condition Status Problem Rheumatoid arthritis M06.9 Active Assessment Rheumatoid arthritis M06.9 Active Problem Rheumatic heart failure I09.81 Active Medications No Known Medications Procedures Procedure Coding System Code Date VENIPUNCT, ROUTINE* CPT-4 66026 Sep 03, 2015 COMPLETE CBC W/AUTO DIFF WBC CPT-4 48272 Sep 03, 2015 Results Name Result Date Reference Range Unit Abnormality Flag ROUTINE VENIPUNCTURE Summary Purpose eClinicalWorks Submission
--- OUTSIDE RECORDS SUMMARY | 2018-04-28 13:25 | XMS REPORT | Continuity of Care Document ---
Author Author [facility] Address Unknown Phone Unavailable Allergies Active Description Code Type Severity Reaction Onset Reported/Identified Relationship to Patient Clinical Status Yes No Known Drug Allergies [id number] Drug Allergy Unknown N/A 01/02/2014 Medications There is no data. Problems Date Dx Coded Attending Type Code Diagnosis Diagnosed By 11/22/2009 V05.4 Varicella, Chickenpox 11/22/2009 V05.4 Varicella, Chickenpox 11/22/2009 V05.4 Varicella, Chickenpox 11/22/2009 GARY RODRIGUEZ DO V05.4 Varicella, Chickenpox 11/22/2009 GARY RODRIGUEZ DO V05.4 Varicella, Chickenpox 11/22/2009 DEE SILVESTRE APRN V05.4 Varicella, Chickenpox 11/22/2009 GARY RODRIGUEZ DO V05.4 Varicella, Chickenpox 11/22/2009 GARY RODRIGUEZ DO V05.4 Varicella, Chickenpox 11/22/2009 GARY RODRIGUEZ DO V05.4 Varicella, Chickenpox 11/22/2009 GARY RODRIGUEZ DO V05.4 Varicella, Chickenpox 11/22/2009 CATHI GALLARDO MD V05.4 Varicella, Chickenpox 11/22/2009 GARY RODRIGUEZ DO V05.4 Varicella, Chickenpox 11/22/2009 MAURICE FRANCO MD V05.4 Varicella, Chickenpox 11/22/2009 DEE SILVESTRE APRN V05.4 Varicella, Chickenpox 11/22/2009 DEE SILVESTRE APRN V05.4 Varicella, Chickenpox 11/23/2009 V05.3 Hepatitis Viral/all 11/23/2009 V05.3 Hepatitis Viral/all 11/23/2009 V05.3 Hepatitis Viral/all 11/23/2009 GARY RODRIGUEZ DO V05.3 Hepatitis Viral/all 11/23/2009 RODRIGUEZ DO, GARY K V05.3 Hepatitis Viral/all 11/23/2009 [facility], DEE A V05.3 Hepatitis Viral/all 11/23/2009 RODRIGUEZ DO, GARY K V05.3 Hepatitis Viral/all 11/23/2009 RODRIGUEZ DO, GARY K V05.3 Hepatitis Viral/all 11/23/2009 RODRIGUEZ DO, GARY K V05.3 Hepatitis Viral/all 11/23/2009 RODRIGUEZ DO, GARY K V05.3 Hepatitis Viral/all 11/23/2009 SAMI MYLES, CATHI Cuellar V05.3 Hepatitis Viral/all 11/23/2009 RODRIGUEZ DO, GARY K V05.3 Hepatitis Viral/all 11/23/2009 JOAN MYLES, MAURICE V05.3 Hepatitis Viral/all 11/23/2009 [facility], DEE A V05.3 Hepatitis Viral/all 11/23/2009 [facility], DEE A V05.3 Hepatitis Viral/all 06/03/2011 008.8 GASTROENTERITIS, VIRAL 06/03/2011 008.8 GASTROENTERITIS, VIRAL 06/03/2011 008.8 GASTROENTERITIS, VIRAL 06/03/2011 RODRIGUEZ DO, GARY K 008.8 GASTROENTERITIS, VIRAL 06/03/2011 RODRIGUEZ DO, GARY K 008.8 GASTROENTERITIS, VIRAL 06/03/2011 [facility], DEE A 008.8 GASTROENTERITIS, VIRAL 06/03/2011 RODRIGUEZ DO, GARY K 008.8 GASTROENTERITIS, VIRAL 06/03/2011 RODRIGUEZ DO, GARY K 008.8 GASTROENTERITIS, VIRAL 06/03/2011 RODRIGUEZ DO, GARY K 008.8 GASTROENTERITIS, VIRAL 06/03/2011 RODRIGUEZ DO, GARY K 008.8 GASTROENTERITIS, VIRAL 06/03/2011 CATHI GALLARDO MD 008.8 GASTROENTERITIS, VIRAL 06/03/2011 RODRIGUEZ DO, GARY K 008.8 GASTROENTERITIS, VIRAL 06/03/2011 MAURICE FRANCO MD 008.8 GASTROENTERITIS, VIRAL 06/03/2011 KONRAD PENGN, DEE A 008.8 GASTROENTERITIS, VIRAL 06/03/2011 [facility], DEE A 008.8 GASTROENTERITIS, VIRAL 07/16/2011 V03.89 MENINGOCOCCAL DX 07/16/2011 V04.81 FLU DX (3 YRS AND ABOVE, IM) 07/16/2011 V20.2 WELL CHILD 07/16/2011 V03.89 MENINGOCOCCAL DX 07/16/2011 V04.81 FLU DX (3 YRS AND ABOVE, IM) 07/16/2011 V20.2 WELL CHILD 07/16/2011 V03.89 MENINGOCOCCAL DX 07/16/2011 V04.81 FLU DX (3 YRS AND ABOVE, IM) 07/16/2011 V20.2 WELL CHILD 07/16/2011 RODRIGUEZ DO, GARY K V03.89 MENINGOCOCCAL DX 07/16/2011 RODRIGUEZ DO, GARY K V04.81 FLU DX (3 YRS AND ABOVE, IM) 07/16/2011 RODRIGUEZ DO, GARY K V20.2 WELL CHILD 07/16/2011 RODRIGUEZ DO, GARY K V03.89 MENINGOCOCCAL DX 07/16/2011 RODRIGUEZ DO, GARY K V04.81 FLU DX (3 YRS AND ABOVE, IM) 07/16/2011 RODRIGUEZ DO, GARY K V20.2 WELL CHILD 07/16/2011 [facility], DEE A V03.89 MENINGOCOCCAL DX 07/16/2011 [facility], DEE A V04.81 FLU DX (3 YRS AND ABOVE, IM) 07/16/2011 [facility], DEE A V20.2 WELL CHILD 07/16/2011 RODRIGUEZ DO, GARY K V03.89 MENINGOCOCCAL DX 07/16/2011 RODRIGUEZ DO, GARY K V04.81 FLU DX (3 YRS AND ABOVE, IM) 07/16/2011 RODRIGUEZ DO, GARY K V20.2 WELL CHILD 07/16/2011 RODRIGUEZ DO, GARY K V03.89 MENINGOCOCCAL DX 07/16/2011 RODRIGUEZ DO, GARY K V04.81 FLU DX (3 YRS AND ABOVE, IM) 07/16/2011 RODRIGUEZ DO, GARY K V20.2 WELL CHILD 07/16/2011 RODRIGUEZ DO, GARY K V03.89 MENINGOCOCCAL DX 07/16/2011 RODRIGUEZ DO, GARY K V04.81 FLU DX (3 YRS AND ABOVE, IM) 07/16/2011 RODRIGUEZ DO, GARY K V20.2 WELL CHILD 07/16/2011 RODRIGUEZ DO, GARY K V03.89 MENINGOCOCCAL DX 07/16/2011 RODRIGUEZ DO, GARY K V04.81 FLU DX (3 YRS AND ABOVE, IM) 07/16/2011 GARY RODRIGUEZ DO V20.2 WELL CHILD 07/16/2011 CATHI GALLARDO MD V03.89 MENINGOCOCCAL DX 07/16/2011 CATHI GALLARDO MD V04.81 FLU DX (3 YRS AND ABOVE, IM) 07/16/2011 CATHI GALLARDO MD V20.2 WELL CHILD 07/16/2011 GARY RODRIGUEZ DO V03.89 MENINGOCOCCAL DX 07/16/2011 GARY RODRIGUEZ DO V04.81 FLU DX (3 YRS AND ABOVE, IM) 07/16/2011 GARY RODRIGUEZ DO V20.2 WELL CHILD 07/16/2011 MAURICE FRANCO MD V03.89 MENINGOCOCCAL DX 07/16/2011 MAURICE FRANCO MD V04.81 FLU DX (3 YRS AND ABOVE, IM) 07/16/2011 MAURICE FRANCO MD V20.2 WELL CHILD 07/16/2011 DEE SILVESTRE APRN A V03.89 MENINGOCOCCAL DX 07/16/2011 GILL SILVESTRE APRNIDI A V04.81 FLU DX (3 YRS AND ABOVE, IM) 07/16/2011 GILL SILVESTRE APRNIDI A V20.2 WELL CHILD 07/16/2011 DEE SILVESTRE APRN A V03.89 MENINGOCOCCAL DX 07/16/2011 DEE SILVESTRE APRN A V04.81 FLU DX (3 YRS AND ABOVE, IM) 07/16/2011 DEE SILVESTRE APRN A V20.2 WELL CHILD 02/06/2012 461.9 SINUSITIS ACUTE 02/06/2012 462 ACUTE PHARYNGITIS 02/06/2012 461.9 SINUSITIS ACUTE 02/06/2012 462 ACUTE PHARYNGITIS 02/06/2012 461.9 SINUSITIS ACUTE 02/06/2012 462 ACUTE PHARYNGITIS 02/06/2012 GARY RODRIGUEZ DO 461.9 SINUSITIS ACUTE 02/06/2012 GARY RODRIGUEZ DO 462 ACUTE PHARYNGITIS 02/06/2012 GARY RODRIGUEZ DO 461.9 SINUSITIS ACUTE 02/06/2012 GARY RODRIGUEZ DO 462 ACUTE PHARYNGITIS 02/06/2012 [facility], DEE A 461.9 SINUSITIS ACUTE 02/06/2012 [facility] APRN, DEE A 462 ACUTE PHARYNGITIS 02/06/2012 RODRIGUEZ DO, GARY K 461.9 SINUSITIS ACUTE 02/06/2012 RODRIGUEZ DO, GARY K 462 ACUTE PHARYNGITIS 02/06/2012 RODRIGUEZ DO, GARY K 461.9 SINUSITIS ACUTE 02/06/2012 RODRIGUEZ DO, GARY K 462 ACUTE PHARYNGITIS 02/06/2012 RODRIGUEZ DO, GARY K 461.9 SINUSITIS ACUTE 02/06/2012 RODRIGUEZ DO, GARY K 462 ACUTE PHARYNGITIS 02/06/2012 RODRIGUEZ DO, GARY K 461.9 SINUSITIS ACUTE 02/06/2012 RODRIGUEZ DO, GARY K 462 ACUTE PHARYNGITIS 02/06/2012 SAMI MYLES, CATHI Cuellar 461.9 SINUSITIS ACUTE 02/06/2012 CATHI GALLARDO MD 462 ACUTE PHARYNGITIS 02/06/2012 RODRIGUEZ DO, GARY K 461.9 SINUSITIS ACUTE 02/06/2012 RODRIGUEZ DO, GARY K 462 ACUTE PHARYNGITIS 02/06/2012 MAURICE FRANCO MD 461.9 SINUSITIS ACUTE 02/06/2012 MAURICE FRANCO MD 462 ACUTE PHARYNGITIS 02/06/2012 GILL SILVESTRE APRNIDI A 461.9 SINUSITIS ACUTE 02/06/2012 K[facility]RAD SYLVESTER DEE A 462 ACUTE PHARYNGITIS 02/06/2012 GILL SILVESTRE APRNIDI A 461.9 SINUSITIS ACUTE 02/06/2012 [facility] PENGN DEE A 462 ACUTE PHARYNGITIS 06/10/2012 785.6 LYMPHADENOPATHY 06/10/2012 785.6 LYMPHADENOPATHY 06/10/2012 785.6 LYMPHADENOPATHY 06/10/2012 RODRIGUEZ DO, GARY K 785.6 LYMPHADENOPATHY 06/10/2012 RODRIGUEZ DO, GARY K 785.6 LYMPHADENOPATHY 06/10/2012 KONRAD SYLVESTER, DEE A 785.6 LYMPHADENOPATHY 06/10/2012 RODRIGUEZ DO, GARY K 785.6 LYMPHADENOPATHY 06/10/2012 RODRIGUEZ DO, GARY K 785.6 LYMPHADENOPATHY 06/10/2012 RODRIGUEZ DO, GARY K 785.6 LYMPHADENOPATHY 06/10/2012 RODRIGUEZ DO, GARY K 785.6 LYMPHADENOPATHY 06/10/2012 SAMI MYLES, CATHI Cuellar 785.6 LYMPHADENOPATHY 06/10/2012 ORDRIGUEZ DO GARY K 785.6 LYMPHADENOPATHY 06/10/2012 MAURICE FRANCO MD 785.6 LYMPHADENOPATHY 06/10/2012 KONRADDEE LONG APRN A 785.6 LYMPHADENOPATHY 06/10/2012 KONRADDEE LONG APRN A 785.6 LYMPHADENOPATHY 08/23/2012 380.4 CERUMEN IMPACTION 08/23/2012 380.4 CERUMEN IMPACTION 08/23/2012 380.4 CERUMEN IMPACTION 08/23/2012 RODRIGUEZ DO GARY K 380.4 CERUMEN IMPACTION 08/23/2012 RODRIGUEZ DO, GARY K 380.4 CERUMEN IMPACTION 08/23/2012 DEE SILVESTRE APRN A 380.4 CERUMEN IMPACTION 08/23/2012 RODRIGUEZ DO GARY K 380.4 CERUMEN IMPACTION 08/23/2012 RODRIGUEZ DO GARY K 380.4 CERUMEN IMPACTION 08/23/2012 RODRIGUEZ DO, GARY K 380.4 CERUMEN IMPACTION 08/23/2012 RODRIGUEZ DO, GARY K 380.4 CERUMEN IMPACTION 08/23/2012 SAMI MYLES, CATHI Cuellar 380.4 CERUMEN IMPACTION 08/23/2012 RODRIGUEZ DO, GARY K 380.4 CERUMEN IMPACTION 08/23/2012 DEE SILVESTRE APRN A 380.4 CERUMEN IMPACTION 08/23/2012 GILL SILVESTRE APRNIDI A 380.4 CERUMEN IMPACTION 08/30/2012 381.81 EUSTACHIAN TUBE DYSFUNCTION 08/30/2012 381.81 EUSTACHIAN TUBE DYSFUNCTION 08/30/2012 RODRIGUEZ DO GARY K 381.81 EUSTACHIAN TUBE DYSFUNCTION 08/30/2012 RODRIGUEZ DO GARY K 381.81 EUSTACHIAN TUBE DYSFUNCTION 08/30/2012 DEE SILVESTRE APRN A 381.81 EUSTACHIAN TUBE DYSFUNCTION 08/30/2012 RODRIGUEZ DO GARY K 381.81 EUSTACHIAN TUBE DYSFUNCTION 08/30/2012 RODRIGUEZ DO GARY K 381.81 EUSTACHIAN TUBE DYSFUNCTION 08/30/2012 RODRIGUEZ DO, GARY K 381.81 EUSTACHIAN TUBE DYSFUNCTION 08/30/2012 RODRIGUEZ DO, GARY K 381.81 EUSTACHIAN TUBE DYSFUNCTION 08/30/2012 CATHI GALLARDO MD 381.81 EUSTACHIAN TUBE DYSFUNCTION 08/30/2012 RODRIGUEZ DO, GARY K 381.81 EUSTACHIAN TUBE DYSFUNCTION 08/30/2012 KONRAD SYLVESTER, DEE A 381.81 EUSTACHIAN TUBE DYSFUNCTION 08/30/2012 KONRAD SYLVESTER, DEE A 381.81 EUSTACHIAN TUBE DYSFUNCTION 05/18/2013 RODRIGUEZ DO, GARY K V72.42 TEST POSITIVE RESULT 05/18/2013 RODRIGUEZ DO, GARY K V72.42 TEST POSITIVE RESULT 05/18/2013 KONRAD SYLVESTER, DEE A V72.42 TEST POSITIVE RESULT 05/18/2013 RODRIGUEZ DO, GARY K V72.42 TEST POSITIVE RESULT 05/18/2013 RODRIGUEZ DO, GARY K V72.42 TEST POSITIVE RESULT 05/18/2013 RODRIGUEZ DO, GARY K V72.42 TEST POSITIVE RESULT 05/18/2013 RODRIGUEZ DO, GARY K V72.42 TEST POSITIVE RESULT 05/18/2013 CATHI GALLARDO MD V72.42 TEST POSITIVE RESULT 05/18/2013 RODRIGUEZ DO, GARY K V72.42 TEST POSITIVE RESULT 05/18/2013 KONRAD SYLVESTER, DEE A V72.42 TEST POSITIVE RESULT 05/18/2013 KONRAD SYLVESTER, DEE A V72.42 TEST POSITIVE RESULT 06/08/2013 RODRIGUEZ DO, GARY K V22.0 , NORMAL FIRST 06/08/2013 KONRAD SYLVESTER, DEE A V22.0 , NORMAL FIRST 06/08/2013 RODRIGUEZ DO, GARY K V22.0 , NORMAL FIRST 06/08/2013 RODRIGUEZ DO, GARY K V22.0 , NORMAL FIRST 06/08/2013 RODRIGUEZ DO, GARY K V22.0 , NORMAL FIRST 06/08/2013 RODRIGUEZ DO, GARY K V22.0 , NORMAL FIRST 06/08/2013 CATHI GALLARDO MD V22.0 , NORMAL FIRST 06/08/2013 RODRIGUEZ DO, GARY K V22.0 , NORMAL FIRST 06/08/2013 [facility]RAD PENGN, DEE A V22.0 , NORMAL FIRST 06/08/2013 [facility] APRN, DEE A V22.0 , NORMAL FIRST 07/11/2013 [facility], DEE A V74.5 STD SCREEN 07/11/2013 DHARMESH RODRIGUEZ DOA K V74.5 STD SCREEN 07/11/2013 RODRIGUEZ DO, GARY K V74.5 STD SCREEN 07/11/2013 RODRIGUEZ DO, GARY K V74.5 STD SCREEN 07/11/2013 RODRIGUEZ DO, GARY K V74.5 STD SCREEN 07/11/2013 SAMI MYLES, CATHI Cuellar V74.5 STD SCREEN 07/11/2013 RODRIGUEZ DO, GARY K V74.5 STD SCREEN 07/11/2013 [facility] APRN, DEE A V74.5 STD SCREEN 07/11/2013 [facility] APRN, DEE A V74.5 STD SCREEN 12/07/2013 SAMI MYLES, CATHI Cuellar V06.1 TDAP DX 12/07/2013 RODRIGUEZ GARY BUSH V06.1 TDAP DX 12/07/2013 [facility], DEE A V06.1 TDAP DX 12/07/2013 [facility] APRN, DEE A V06.1 TDAP DX 02/14/2014 [facility], DEE A V24.2 F/U, ROUTINE 02/14/2014 [facility], DEE A V25.09 CONTRACEPTIVE COUNSELING - GENERAL 02/14/2014 [facility] APRN, DEE A V24.2 F/U, ROUTINE 02/14/2014 [facility], DEE A V25.09 CONTRACEPTIVE COUNSELING - GENERAL 10/21/2014 [facility]RAD SYLVESTER, DEE A 475 PERITONSILLAR ABSCESS 10/24/2014 KONRAD SYLVESTER, DEE A 474.11 HYPERTROPHY OF TONSILS ALONE 12/04/2014 GILL SILVESTRE APRNIDI A V25.02 CONTRACEPTION - ANY METHOD 12/02/2017 DILIP LONGORIA MD, Ot Z34.91 ENCNTR FOR SUPRVSN OF NORMAL PREG, UNSP, 12/02/2017 DILIP LONGORIA MD, Ot Z3A.09 9 WEEKS GESTATION OF 12/10/2017 DILIP LONGORIA MD Ot Z34.91 ENCNTR FOR SUPRVSN OF NORMAL PREG, UNSP, 12/10/2017 DILIP LONGORIA MD Ot Z3A.09 9 WEEKS GESTATION OF 12/17/2017 Ot Z34.82 ENCOUNTER FOR SUPRVSN OF NORMAL PREGNANC 12/17/2017 Ot Z3A.19 19 WEEKS GESTATION OF 2017 Ot Z34.82 ENCOUNTER FOR SUPRVSN OF NORMAL PREGNANC 2017 Ot Z3A.19 19 WEEKS GESTATION OF 01/11/2018 DILIP LONGORIA MD Ot Z34.82 ENCOUNTER FOR SUPRVSN OF NORMAL PREGNANC 01/11/2018 DILIP LONGORIA MD Ot Z3A.00 WEEKS OF GESTATION OF NOT SPEC 02/25/2018 DILIP LONGORIA MD Ot Z34.82 ENCOUNTER FOR SUPRVSN OF NORMAL PREGNANC 02/25/2018 DILIP LONGORIA MD Ot Z3A.00 WEEKS OF GESTATION OF NOT SPEC 04/25/2018 Ot Z34.82 ENCOUNTER FOR SUPRVSN OF NORMAL PREGNANC 04/25/2018 Ot Z3A.19 19 WEEKS GESTATION OF 04/25/2018 DILIP LONGORIA MD Ot Z34.82 ENCOUNTER FOR SUPRVSN OF NORMAL PREGNANC 04/25/2018 DILIP LONGORIA MD Ot Z3A.00 WEEKS OF GESTATION OF NOT SPEC 04/25/2018 Ot R00.0 TACHYCARDIA, UNSPECIFIED Procedures Code Description [place] [address] URINE TEST (IN- HOUSE) 05/18/2013 28053 ROUTINE VENIPUNCTURE 06/08/2013 83595 CBC 06/08/2013 49885 TSH 06/08/2013 2050884 ANTIBODY SCREEN (RESULT ONLY) 06/09/2013 09883 BLOOD TYPE/Rh FACTOR 06/09/2013 30792 HIV ANTIBODIES (RML) 06/09/2013 21895 RUBELLA ANTIBODY, IGG 06/09/2013 53851 CULTURE URINE 06/10/2013 93465 SYPHILLIS-STATE LAB 06/13/2013 85880 ANTIBODY SCREEN (order) 06/13/2013 09099 HEP B SURFACE ANTIGEN (STATE ) 06/13/2013 44340 TRICHOMONAS (IN-HOUSE) 07/11/2013 80465 UA OB DIP 07/11/2013 86313 GC/CHLAM PROBE (STATE) 07/13/2013 76252 CULTURE UROGENITAL 07/14/2013 39297 UA W/ CULTURE IF INDICATED 08/17/2013 49930 CULTURE URINE 08/18/2013 61907 US OB - COMPLETE >14 WEEKS 08/19/2013 88737 UA OB DIP 09/14/2013 49025 UA OB DIP 10/12/2013 05497 ROUTINE VENIPUNCTURE 10/26/2013 63657 UA OB DIP 10/26/2013 98687 CBC 10/26/2013 88989 GLUCOSE XANDER 1 HOUR 10/26/2013 95820 UA OB DIP 11/09/2013 66621 UA OB DIP 11/23/2013 84256 UA OB DIP 12/07/2013 86697 UA OB DIP 12/14/2013 78104 CULTURE GROUP B STREP VAG 12/17/2013 61721 UA OB DIP 12/21/2013 13146 TEST, URINE (IN- HOUSE) 12/04/2014 Results Test Result Range CBC With Differential/Platelet - 05/23/16 10:32 WBC 8.7 x10E3/uL 3.4-10.8 RBC 4.63 x10E6/uL 3.77-5.28 Hemoglobin 12.5 g/dL 11.1-15.9 Hematocrit 38.6 % 34.0-46.6 MCV 83 fL 79-97 MCH 27.0 pg 26.6-33.0 MCHC 32.4 g/dL 31.5-35.7 RDW 15.8 % 12.3-15.4 Platelets 357 x10E3/uL 150-379 Neutrophils 66 % Lymphs 27 % Monocytes 7 % Eos 0 % Basos 0 % Neutrophils (Absolute) 5.6 x10E3/uL 1.4-7.0 Lymphs (Absolute) 2.4 x10E3/uL 0.7-3.1 Monocytes(Absolute) 0.6 x10E3/uL 0.1-0.9 Eos (Absolute) 0.0 x10E3/uL 0.0-0.4 Baso (Absolute) 0.0 x10E3/uL 0.0-0.2 Immature Granulocytes 0 % Immature Grans (Abs) 0.0 x10E3/uL 0.0-0.1 Hepatic Function Panel (7) - 05/23/16 10:32 Protein, Total, Serum 7.6 g/dL 6.0-8.5 Albumin, Serum 4.0 g/dL 3.5-5.5 Bilirubin, Total <0.2 mg/dL 0.0-1.2 Alkaline Phosphatase, S 123 IU/L 39-117 AST (SGOT) 9 IU/L 0-40 ALT (SGPT) 11 IU/L 0-32 Bilirubin, Direct 0.08 mg/dL 0.00-0.40 CBC With Differential/Platelet - 08/25/16 09:11 WBC 7.2 x10E3/uL 3.4-10.8 RBC 4.70 x10E6/uL 3.77-5.28 Hemoglobin 12.9 g/dL 11.1-15.9 Hematocrit 38.2 % 34.0-46.6 MCV 81 fL 79-97 MCH 27.4 pg 26.6-33.0 MCHC 33.8 g/dL 31.5-35.7 RDW 15.4 % 12.3-15.4 Platelets 325 x10E3/uL 150-379 Neutrophils 64 % Lymphs 28 % Monocytes 7 % Eos 1 % Basos 0 % Neutrophils (Absolute) 4.5 x10E3/uL 1.4-7.0 Lymphs (Absolute) 2.0 x10E3/uL 0.7-3.1 Monocytes(Absolute) 0.5 x10E3/uL 0.1-0.9 Eos (Absolute) 0.1 x10E3/uL 0.0-0.4 Baso (Absolute) 0.0 x10E3/uL 0.0-0.2 Immature Granulocytes 0 % Immature Grans (Abs) 0.0 x10E3/uL 0.0-0.1 Hepatic Function Panel (7) - 08/25/16 09:11 Protein, Total, Serum 7.8 g/dL 6.0-8.5 Albumin, Serum 4.2 g/dL 3.5-5.5 Bilirubin, Total 0.2 mg/dL 0.0-1.2 Alkaline Phosphatase, S 93 IU/L 39-117 AST (SGOT) 14 IU/L 0-40 ALT (SGPT) 13 IU/L 0-32 Bilirubin, Direct 0.08 mg/dL 0.00-0.40 A1C - 06/11/17 08:55 HEMOGLOBIN A1c 5.1 % of total Hgb <5.7 INSULIN LEVEL - 06/11/17 08:55 INSULIN 24.5 uIU/mL 2.0-19.6 A1C - 10/01/17 15:26 HEMOGLOBIN A1c 4.8 % of total Hgb <5.7 SUREPATH PAP RFX HPV mRNA E6/E7 - 10/01/17 15:26 CLINICAL INFORMATION: NRG LMP: 08/03/17 NRG PREV. PAP: 2014 NRG PREV. BX: NONE NRG SOURCE: [employer] NRG STATEMENT OF ADEQUACY: NRG INTERPRETATION/RESULT: NRG FINANCIAL MANAGEMENT: NRG Blood type T Indirect antibody screen panel - 01/08/18 16:00 ABO+Rh group OP NRG Transfusion band number TNP NRG Blood group antibody screen NEGATIVE NRG CBC - 01/22/18 11:40 WHITE BLOOD CELL COUNT 11.4 Thousand/uL 3.8-10.8 RED BLOOD CELL COUNT 4.25 Million/uL 3.80-5.10 HEMOGLOBIN 11.9 g/dL 11.7-15.5 HEMATOCRIT 35.9 % 35.0-45.0 MCV 84.5 fL 80.0-100.0 MCH 28.0 pg 27.0-33.0 MCHC 33.1 g/dL 32.0-36.0 RDW 13.8 % 11.0-15.0 PLATELET COUNT 276 Thousand/uL 140-400 MPV 10.6 fL 7.5-12.5 ABSOLUTE NEUTROPHILS 8789 cells/uL 8928-3670 ABSOLUTE LYMPHOCYTES 2109 cells/uL 850-3900 ABSOLUTE MONOCYTES 433 cells/uL 200-950 ABSOLUTE EOSINOPHILS 46 cells/uL 15-500 ABSOLUTE BASOPHILS 23 cells/uL 0-200 NEUTROPHILS 77.1 % NRG LYMPHOCYTES 18.5 % NRG MONOCYTES 3.8 % NRG EOSINOPHILS 0.4 % NRG BASOPHILS 0.2 % NRG CULTURE, GROUP B STREP (VAGINAL) - 04/16/18 12:10 STREPTOCOCCUS, GROUP B CULTURE SEE NOTE NRG Complete blood count (CBC) with automated white blood cell (WBC) differential - 04/25/18 12:06 Blood leukocytes automated count (number/volume) 11.7 10*3/uL 4.3-11.0 Blood erythrocytes automated count (number/volume) 4.09 10*6/uL 4.35-5.85 Venous blood hemoglobin measurement (mass/volume) 11.2 g/dL 11.5-16.0 Blood hematocrit (volume fraction) 33 % 35-52 Automated erythrocyte mean corpuscular volume 81 [foz_us] 80-99 Automated erythrocyte mean corpuscular hemoglobin (mass per erythrocyte) 27 pg 25-34 Automated erythrocyte mean corpuscular hemoglobin concentration measurement ( mass/volume) 34 g/dL 32-36 Automated erythrocyte distribution width ratio 14.9 % 10.0-14.5 Automated blood platelet count (count/volume) 267 10*3/uL 130-400 Automated blood platelet mean volume measurement 10.1 [foz_us] 7.4-10.4 Automated blood neutrophils/100 leukocytes 77 % 42-75 Automated blood lymphocytes/100 leukocytes 17 % 12-44 Blood monocytes/100 leukocytes 6 % 0-12 Automated blood eosinophils/100 leukocytes 0 % 0-10 Automated blood basophils/100 leukocytes 0 % 0-10 Blood neutrophils automated count (number/volume) 9.0 10*3 1.8-7.8 Blood lymphocytes automated count (number/volume) 2.0 10*3 1.0-4.0 Blood monocytes automated count (number/volume) 0.7 10*3 0.0-1.0 Automated eosinophil count 0.0 10*3/uL 0.0-0.3 Automated blood basophil count (count/volume) 0.0 10*3/uL 0.0-0.1 Comprehensive metabolic panel - 04/25/18 12:06 Serum or plasma sodium measurement (moles/volume) 135 mmol/L 135-145 Serum or plasma potassium measurement (moles/volume) 4.2 mmol/L 3.6-5.0 Serum or plasma chloride measurement (moles/volume) 108 mmol/L 98-107 Carbon dioxide 18 mmol/L 21-32 Serum or plasma anion gap determination (moles/volume) 9 mmol/L 5-14 Serum or plasma urea nitrogen measurement (mass/volume) 8 mg/dL 7-18 Serum or plasma creatinine measurement (mass/volume) 0.57 mg/dL 0.60-1.30 Serum or plasma urea nitrogen/creatinine mass ratio 14 NRG Serum or plasma creatinine measurement with calculation of estimated glomerular filtration rate > NRG Serum or plasma glucose measurement (mass/volume) 70 mg/dL 70-105 Serum or plasma calcium measurement (mass/volume) 8.8 mg/dL 8.5-10.1 Serum or plasma total bilirubin measurement (mass/volume) 0.4 mg/dL 0.1-1.0 Serum or plasma alkaline phosphatase measurement (enzymatic activity/volume) 193 U/L 40-136 Serum or plasma aspartate aminotransferase measurement (enzymatic activity/ volume) 15 U/L 5-34 Serum or plasma alanine aminotransferase measurement (enzymatic activity/volume ) 15 U/L 0-55 Serum or plasma protein measurement (mass/volume) 6.3 g/dL 6.4-8.2 Serum or plasma albumin measurement (mass/volume) 3.0 g/dL 3.2-4.5 CALCIUM CORRECTED 9.6 mg/dL 8.5-10.1 Encounters ACCT No. Visit Date/Time Discharge Status Pt. Type Provider Facility Loc./Unit Complaint [id number] 12/04/2014 09:27:00 12/04/2014 23:59:59 [facility] Outpatient DEE SILVESTRE APRN [id number] 02/14/2014 13:20:00 02/14/2014 23:59:59 [facility] Outpatient DEE SILVESTRE APRN [id number] 01/11/2014 13:48:00 01/11/2014 23:59:59 [facility]LS Outpatient GARY RODRIGUEZ DO [id number] 12/21/2013 15:09:00 12/21/2013 23:59:59 CLS Outpatient SAMI MYLES, CATHI Cuellar [id number] 11/09/2013 15:17:00 11/09/2013 23:59:59 CLS Outpatient GARY RODRIGUEZ DO [id number] 10/26/2013 14:20:00 10/26/2013 23:59:59 CLS Outpatient GARY RODRIGUEZ DO [id number] 10/12/2013 14:17:00 10/12/2013 23:59:59 CLS Outpatient GARY RODRIGUEZ DO [id number] 09/14/2013 14:27:00 09/14/2013 23:59:59 CLS Outpatient GARY RODRIGUEZ DO [id number] 07/11/2013 16:49:00 07/11/2013 23:59:59 CLS Outpatient DEE SILVESTRE APRN [id number] 06/08/2013 10:51:00 06/08/2013 23:59:59 CLS Outpatient GARY RODRIGUEZ DO [id number] 05/18/2013 08:31:00 05/18/2013 23:59:59 CLS Outpatient GARY RODRIGUEZ DO [id number] 09/08/2012 16:43:00 09/08/2012 23:59:59 CLS Outpatient [id number] 08/30/2012 16:11:00 08/30/2012 23:59:59 CLS Outpatient [id number] 08/23/2012 15:15:00 08/23/2012 23:59:59 CLS Outpatient [id number] 06/10/2012 16:49:00 06/10/2012 23:59:59 CLS Outpatient MAURICE FRANCO MD [id number] 04/25/2018 09:39:00 04/25/2018 12:54:00 DIS Outpatient GARY RODRIGUEZ DO [facility] [id number] 01/08/2018 15:16:00 01/08/2018 23:59:59 CLS Outpatient DILIP LONGORIA MD [facility] RAD EVALUATE ANATOMY NOT SEEN ON PRIOR SONO [id number] 01/02/2014 07:17:00 01/03/2014 16:45:00 DIS Inpatient [id number] 08/19/2013 14:54:00 08/19/2013 23:59:59 CLS Outpatient [id number] 03/11/2018 10:00:00 Document Registration [id number] 12/16/2017 10:06:00 Document Registration [id number] 05/24/2016 13:05:00 Document Registration [id number] 02/26/2018 14:00:00 02/26/2018 23:59:59 CLS Outpatient DILIP LONGORIA MD [facility] [id number] 04/16/2018 10:20:00 Document Registration [id number] 01/22/2018 11:00:00 Document Registration [id number] 10/01/2017 14:20:00 Document Registration [id number] 06/11/2017 08:40:00 Document Registration [id number] 12/16/2017 10:06:00 12/16/2017 23:59:59 CLS Outpatient DILIP LONGORIA MD [facility] RAD CARE,[facility] [id number] 12/10/2017 10:00:00 12/10/2017 23:59:59 CLS Outpatient DILIP LONGORIA MD [facility] CARD R00.0 RACING HEART [id number] 10/06/2017 10:49:00 10/06/2017 23:59:59 CLS Outpatient DILIP LONGORIA MD [facility] RAD Z34.91 CARE IN [facility] [id number] 08/26/2016 08:36:00 Document Registration
--- OUTSIDE RECORDS SUMMARY | 2018-04-28 13:25 | XMS REPORT ---
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
[2018-04-28 13:28] LABS: BASOPHILS % (AUTO) 0 % (0-10); EOSINOPHILS % (AUTO) 0 % (0-10); HEMATOCRIT 34 % (35-52); HEMOGLOBIN 11.2 G/DL (11.5-16.0); LYMPHOCYTES # (AUTO) 1.7 X 10^3 (1.0-4.0); LYMPHOCYTES % (AUTO) 15 % (12-44); MEAN CORPUSCULAR HGB CONC 33 G/DL (32-36); MEAN CORPUSCULAR VOLUME 80 FL (80-99); MEAN PLATELET VOLUME 10.3 FL (7.4-10.4); MONOCYTES # (AUTO) 0.8 X 10^3 (0.0-1.0); MONOCYTES % (AUTO) 7 % (0-12); NEUTROPHILS # (AUTO) 9.4 X 10^3 (1.8-7.8); NEUTROPHILS % (AUTO) 79 % (42-75); PLATELET COUNT 297 10^3/uL (130-400); RED BLOOD COUNT 4.23 10^6/uL (4.35-5.85); RED CELL DISTRIBUTION WIDTH 15.2 % (10.0-14.5); WHITE BLOOD COUNT 11.9 10^3/uL (4.3-11.0)
[2018-04-28 13:29] LABS: MEAN CORPUSCULAR HEMOGLOBIN 26 PG (25-34)
[2018-04-28] MEDS ORDERED: CATHETER FLUSH 10 ML SYR IV SCH (14:00)
[2018-04-28] MEDS ORDERED: FLU QUADRIvalent (5+ YOA) 2018-2019 (AFLURIA) 0.5 ML IM ONE (14:00)
[2018-04-28] MEDS: D5 LR IV SOLUTION 1,000 ML IV SCH ×2 (15:19→22:38)
[2018-04-28] MEDS ORDERED: PREN-142 PO ×2 (17:00)
--- NOTE | 2018-04-28 17:00 | History & Physical-OB ---
OB - Chief Complaint & HPI Date/Time Date of Admission: Date of Admission: Apr 28, 2018 at 12:44 pm Date seen by a Provider: Apr 28, 2018 Time Seen by a Provider: 16:05 Chief Complaint/History OB-Reason for Admission/Chief: Obstetrical Complication Hx : 2 Hx Para: 1 Expected Date of Delivery: May 09, 2018 Gestational Age in Weeks: 38 Gestational Age in Days: 2 History of Labs O+, antibody POSITIVE but unable to type and MIKE neg on intake labs, but repeat at blood bank negative, [place]. Hep B/RPR/HIV neg. GC/chlamydia neg. Glucola normal. GBS POS. Other 3 days ago, patient seen at Labor and Delivery for acute onset of severe diffuse itching with no rash. She was unable even to sleep due to itching on her palms. Serum bile acids sent and pending. Since then, she has also noticed decreased movement, remains itchy and has not developed any rash. Allergies and Home Medications Allergies Coded Allergies: No Known Drug Allergies (Unverified , 01/02/14) Home Medications Vit No.124/Iron/FA 1 Each Tablet, 1 EACH PO DAILY, (Reported) Patient Home Medication List Home Medication List Reviewed: Yes OB - History Hx of Present Care: Yes Ultrasounds: Normal mid trimester US Obstetrical Complications: Other (suspected intrahepatic cholestasis, decreased movement) Medical Complications: Other (Rheumatoid arthritis with no problems during ) Obstetrical History Hx : 2 Hx Para: 1 Hx # Term Pregnancies: 1 Hx # Pregnancies: 0 Number of Living Children: 1 Hx Termination: No Hx Multiple Gestation: No Hx Ectopic : No Hx Stillbirth: No Hx Complication: No Hx Induced Hypertens: No Hx Maternal Gestational Diabet: No Hx Hemorrhage: No Delivery History Hx Dystocia: No Hx Forceps Assisted Delivery: No Hx Vacuum Extraction Assisted: No Hx Placenta Abnormality: No Hx Distress: No Hx Large For Gestational Age I: No Hx Small for Gestational Age I: No Hx Section: No Hx Vaginal Delivery Post C-Sec: No Hx Blood Disorders: No Adverse Rxn to Tranfusion: No Patient Past Medical History PMHx: Rheumatoid arthritis Insulin resistance Social History/Family History HIV/AIDS: No Recent Infectious Disease Expo: No Sexually Transmitted Disease: No Alcohol Use: Denies Use Recreational Drug Use: No Smoking Cessation: Never smoker Immunizations Hepatitis A: Yes Hepatitis B: Yes Tetanus Booster (TDap): Less than 5yrs Rubella: immune RPR/VDRL: Negative GBS Status: Positive HBsAG: Negative OB - Admission Exam Physical Exam Vitals: Vital Signs 04/28/18 04/28/18 15:30 15:45 Temp 98.8 Pulse 88 Resp 18 B/P (MAP) 112/66 (81) HEENT: NCAT Cervical Dilatation: 4cm Effacement: 25% Station: -3 Membranes: Intact Accelerations: Accelerations Present Decelerations: No Decelerations Short Term Variability: Present Nursing Home Variability: Average (6-25) Contractions on Admission: None Zimmerman Scoring Tool (Modified) Dilation (cm): 3-4cm (2) Effacement (%): 0-30% (0) Descent/Station: -3 (0) Cervix Consistency: Soft (2) Cervix Position: Middle/Mid-Position (1) Add 1 point for: Each previous vaginal delivery (1) Zimmerman Score: 6 Labs Laboratory Tests Test 04/28/18 13:10 Range/Units White Blood Count 11.9 H 4.3-11.0 10^3/uL Red Blood Count 4.23 L 4.35-5.85 10^6/uL Hemoglobin 11.2 L 11.5-16.0 G/DL Hematocrit 34 L 35-52 % Mean Corpuscular Volume 80 80-99 FL Mean Corpuscular Hemoglobin 26 25-34 PG Mean Corpuscular Hemoglobin Concent 33 32-36 G/DL Red Cell Distribution Width 15.2 H 10.0-14.5 % Platelet Count 297 130-400 10^3/uL Mean Platelet Volume 10.3 7.4-10.4 FL Neutrophils (%) (Auto) 79 H 42-75 % Lymphocytes (%) (Auto) 15 12-44 % Monocytes (%) (Auto) 7 0-12 % Eosinophils (%) (Auto) 0 0-10 % Basophils (%) (Auto) 0 0-10 % Neutrophils # (Auto) 9.4 H 1.8-7.8 X 10^3 Lymphocytes # (Auto) 1.7 1.0-4.0 X 10^3 Monocytes # (Auto) 0.8 0.0-1.0 X 10^3 Eosinophils # (Auto) 0.0 0.0-0.3 10^3/uL Basophils # (Auto) 0.0 0.0-0.1 10^3/uL OB - Assessment/Plan/Diagnosis Assessment Assessment: group B positive strep, induction of labor Admission Dx at 38w2d with suspected intrahepatic cholestasis. Discussed with lab and results may not be back for 4 more days based on possible range of result reporting. Given the chance for catastrophic outcome with ICP in combination with the added complication of decreased movement and in light of full term status with favorable cervix, discussed with patient and decision made to proceed with induction. Ampicillin for GBS positive status. Admission Status: Inpatient Order (span 2 midnights) Reason for Inpatient Admission: Labor and delivery and course Plan Plan: Induction Induction Method: per Pitocin Protocol DILIP LONGORIA MD Apr 28, 2018 5:00 pm
[2018-04-28] MEDS: AMPICILLIN FOR IV USE 1,000 MG in NS (IVPB) 50 ML IV SCH ×2 (19:25→23:13)
--- NOTE | 2018-04-28 22:04 | Labor Progress Note ---
Labor Progress Note Labor Progress Note Date Seen by Provider: Apr 28, 2018 Time Seen by Provider: 21:45 Subjective: Pt doing okay. Objective: Cervical exam: 550/-3 Consistency: soft Position: mid/right Presentation: vertex heart tones: 130 beats per minute, moderate variability, reactive Tocometer: 4-5 ctx/10 minutes Assessment/Plan: Betzaida Hendricks is a 22 /Para 2 / 1,Gestational Age (wks)38 here for IOL for decreased movement, suspected intrahepatic cholestasis. AROM done with clear fluid return CEFM/TOCO Continue pitocin Anesthesia: None, epidural okay if desired Anticipate vaginal delivery. Vitals - Labs Vital Signs - I&O Vital Signs 04/28/18 04/28/18 19:30 20:15 Temp 97.0 Pulse 89 Resp 18 B/P (MAP) 117/90 (99) O2 Delivery Room Air Labs Laboratory Tests 04/28/18 13:10: White Blood Count 11.9H, Red Blood Count 4.23L, Hemoglobin 11.2L, Hematocrit 34L , Mean Corpuscular Volume 80, Mean Corpuscular Hemoglobin 26, Mean Corpuscular Hemoglobin Concent 33, Red Cell Distribution Width 15.2H, Platelet Count 297, Mean Platelet Volume 10.3, Neutrophils (%) (Auto) 79H, Lymphocytes (%) (Auto) 15 , Monocytes (%) (Auto) 7, Eosinophils (%) (Auto) 0, Basophils (%) (Auto) 0, Neutrophils # (Auto) 9.4H, Lymphocytes # (Auto) 1.7, Monocytes # (Auto) 0.8, Eosinophils # (Auto) 0.0, Basophils # (Auto) 0.0 DILIP LONGORIA MD Apr 28, 2018 10:04 pm
[2018-04-29] VITALS (43 sets, daily range): BP systolic 98–165; BP diastolic 55–95
[2018-04-29] MEDS: D5 LR IV SOLUTION 1,000 ML IV SCH (03:55)
[2018-04-29] MEDS: AMPICILLIN FOR IV USE 1,000 MG in NS (IVPB) 50 ML IV SCH ×2 (03:55→08:13)
--- NOTE | 2018-04-29 06:18 | Labor Progress Note ---
Labor Progress Note Labor Progress Note Date Seen by Provider: Apr 29, 2018 Time Seen by Provider: 06:00 Subjective: Pt tired and contractions are getting much more painful. Objective: Cervical exam: /- Consistency: soft Position: right mid Presentation: vertex heart tones: 130 beats per minute, moderate variability, reactive, variable decelerations with contractions Tocometer: Unable to supervisor opening and picking well Assessment/Plan: Betzaida Hendricks is a (22 /Para 2 / 1,Gestational Age (wks)38 here for IOL for suspected intrahepatic cholestasis and decreased movement. IUPC placed to monitor contraction pattern and timing of decelerations more closely, hold pitocin for now Anesthesia: none Discussed the slow progress so far and the variable decelerations and possible need for operative delivery, for now will monitor closely and she will let us know if she is feeling too fatigued or has concerns about the plan Anticipate vaginal delivery. Vitals - Labs Vital Signs - I&O Vital Signs Date Time Temp Pulse Resp B/P (MAP) Pulse Ox O2 Delivery O2 Flow Rate FiO2 04/29/18 06:00 100 18 130/76 (94) Room Air 04/29/18 05:45 85 18 130/73 (92) Room Air 04/29/18 05:30 109 18 165/80 (108) Room Air 04/29/18 05:00 100 18 135/88 (104) Room Air 04/29/18 04:45 99 18 110/69 (83) Room Air 04/29/18 04:30 84 18 113/72 (86) Room Air 04/29/18 04:15 88 18 118/79 (92) Room Air 04/29/18 04:00 97.8 93 18 114/75 (88) Room Air 04/29/18 03:45 78 18 106/68 (81) Non Rebreather 12.00 04/29/18 03:30 91 18 132/90 (104) Non Rebreather 12.00 04/29/18 03:15 80 18 122/85 (97) Non Rebreather 12.00 04/29/18 03:00 88 18 130/91 (104) Non Rebreather 12.00 04/29/18 02:45 82 18 122/83 (96) Non Rebreather 12.00 04/29/18 02:30 97.9 93 18 118/76 (90) Room Air 04/29/18 02:15 90 18 120/83 (95) Room Air 04/29/18 02:00 91 18 117/82 (94) Room Air 04/29/18 01:45 90 18 131/95 (107) Room Air 04/29/18 01:30 89 18 140/86 (104) Room Air 04/29/18 01:15 93 18 139/84 (102) Room Air 04/29/18 01:00 90 18 134/72 (92) Room Air 04/29/18 00:45 86 18 101/55 (70) Room Air 04/29/18 00:30 90 18 102/58 (73) Room Air 04/29/18 00:15 91 18 120/80 (93) Room Air 04/29/18 00:00 89 18 126/78 (94) Room Air 04/28/18 23:45 94 18 135/89 (104) Room Air 04/28/18 23:30 96 18 127/78 (94) Room Air 04/28/18 23:15 89 18 142/86 (104) Room Air 04/28/18 23:00 84 18 131/86 (101) Room Air 04/28/18 22:45 87 18 128/85 (99) Room Air 04/28/18 22:30 97 18 125/86 (99) Room Air 04/28/18 22:15 82 18 118/81 (93) Room Air 04/28/18 22:00 97.5 65 18 103/68 (80) Room Air 04/28/18 21:45 97.5 84 18 107/66 (80) Room Air 04/28/18 21:30 83 18 90/59 (69) Room Air 04/28/18 21:15 83 18 112/69 (83) Room Air 04/28/18 21:00 82 18 116/77 (90) Room Air 04/28/18 20:45 89 18 128/89 (102) Room Air 04/28/18 20:30 90 18 120/76 (91) Room Air 04/28/18 20:15 89 18 117/90 (99) Room Air 04/28/18 20:00 88 18 124/71 (88) Room Air 04/28/18 19:45 89 18 128/75 (92) Room Air 04/28/18 19:30 97.0 91 18 124/87 (99) 04/28/18 19:00 88 18 111/75 (87) 04/28/18 18:45 90 18 108/67 (81) 04/28/18 18:30 89 18 121/77 (92) 04/28/18 18:15 100 18 128/77 (94) 04/28/18 18:00 93 18 114/74 (87) 04/28/18 17:45 86 18 119/72 (88) 04/28/18 17:30 90 18 117/74 (88) 04/28/18 17:15 90 18 123/75 (91) 04/28/18 17:00 98.8 92 18 119/64 (82) 04/28/18 16:45 96 18 122/74 (90) 04/28/18 16:30 88 18 123/70 (87) 04/28/18 16:15 100 18 137/78 (97) 04/28/18 16:00 93 18 115/63 (80) 04/28/18 15:45 88 18 112/66 (81) 04/28/18 15:30 98.8 90 18 133/75 (94) 04/28/18 12:55 103 18 131/75 (93) I & O 04/29/18 07:00 Intake Total 2380 ml Balance 2380 ml Labs Laboratory Tests 04/28/18 13:10: White Blood Count 11.9H, Red Blood Count 4.23L, Hemoglobin 11.2L, Hematocrit 34L , Mean Corpuscular Volume 80, Mean Corpuscular Hemoglobin 26, Mean Corpuscular Hemoglobin Concent 33, Red Cell Distribution Width 15.2H, Platelet Count 297, Mean Platelet Volume 10.3, Neutrophils (%) (Auto) 79H, Lymphocytes (%) (Auto) 15 , Monocytes (%) (Auto) 7, Eosinophils (%) (Auto) 0, Basophils (%) (Auto) 0, Neutrophils # (Auto) 9.4H, Lymphocytes # (Auto) 1.7, Monocytes # (Auto) 0.8, Eosinophils # (Auto) 0.0, Basophils # (Auto) 0.0 DILIP LONGORIA MD Apr 29, 2018 6:18 am
[2018-04-29] MEDS ORDERED: FAMOTIDINE 20MG/2ML IV (PEPCID) ONE (08:34)
[2018-04-29] MEDS ORDERED: METOCLOPRAMIDE INJ 10 MG/2 ML (REGLAN) IV ONE (08:45)
[2018-04-29] MEDS ORDERED: CITRIC ACID/SOB CIT (BICITRA) 30 ML UDC PO ONE (08:45)
[2018-04-29] MEDS: LACTATED RINGERS 1,000 ML IV PRN ×2 (08:48→09:45)
[2018-04-29] MEDS ORDERED: ceFAZolin 2 GM IV Premixed 50 ML ONE (09:03)
[2018-04-29] MEDS ORDERED: OXYTOCIN (PITOCIN) 10 UNIT/ML VIAL ONE ×2 (09:09→09:42)
[2018-04-29] MEDS ORDERED: fentaNYL INJECTION 100 MCG/2 ML AMP ONE (09:09)
[2018-04-29] MEDS ORDERED: BUPIVACAINE SPINAL 0.75% (SENSORCAINE) 2 ML AMP ONE (09:09)
[2018-04-29] MEDS ORDERED: LIDOCAINE PF 1% 5 ML (XYLOCAINE) AMP ONE (09:24)
--- NOTE | 2018-04-29 09:40 | Progress Note-Standard ---
Standard Progress Note Progress Notes/Assess & Plan Date Seen by a Provider: Apr 29, 2018 Time Seen by a Provider: 07:15 Progress/Assessment & Plan Patient seen this AM at request of Dr. Meneses due to concerns of intolerance of labor. Patient was admitted last night for induction of labor for cholestasis of . Bile salts are pending, but due to significant pruritic and 38 weeks she was induced with a favorable cervix. However since she has been admitted anytime an adequate labor contraction pattern is reached, the fetus begins having significant decelerations both late and variable. 7 cm dilatation was reached however station is remote from delivery at -2 to - 3 station. was discussed by Dr. Byrne who admitted the patient, i then came in to discuss the situation with the patient. Risk of was reviewed in detail, and all of her and her husbands questions were answered to their satisfaction with nursing present. Consent was obtained and patient was then taken for . TYSHAWN AKHTAR DO Apr 29, 2018 9:40 am
[2018-04-29] MEDS ORDERED: LIDOCAINE PF 2% 5 ML (XYLOCAINE) VIAL ONE (09:42)
[2018-04-29] MEDS ORDERED: ONDANSETRON 4 MG/2 ML (SDV) Z0FRAN ONE (09:43)
[2018-04-29] MEDS ORDERED: PHENYLEPHRINE 100 MCG/ML 10 ML (ANESTHESIA) SYR ONE (10:28)
[2018-04-29] MEDS ORDERED: OXYTOCIN/NORMAL SALINE 500 ML IV SCH (10:55)
[2018-04-29] MEDS ORDERED: HYDROmorphone 2 MG/ML VIAL (DILAUDID) IV PRN (11:00)
[2018-04-29] MEDS ORDERED: MEASLES,MUMPS,RUBELLA 1 EA INJ SC SCH (11:00)
[2018-04-29] MEDS ORDERED: TETANUS,DIPTH,PERTUSS P/F (BOOSTRIX) 0.5 ML VIAL IM SCH (11:00)
[2018-04-29] MEDS ORDERED: ONDANSETRON 4 MG/2 ML (SDV) Z0FRAN IVP PRN (11:00)
--- NOTE | 2018-04-29 11:00 | Discharge Inst-Women's Service ---
Discharge Inst-Women's Serv Depart Medication/Instructions New, Converted or Re-Newed RX: RX on Chart Final Diagnosis POD 2 PLTCS, Cholestasis of , intolerance of labor Consults/Follow Up Additional Follow Up: Yes Activity Activity: Activity as Tolerated Driving Instructions: No Driving for 1 Week NO SMOKING: NO SMOKING Nothing Inside Vagina: No Douching, No Manter, No Tampons Diet Discharge Diet: No Restrictions Symptoms to Report to : Bleeding Excessive, Pain Increased, Fever Over 101 Degrees F, Vaginal Bleeding Increase, Questions/Concerns For Any Problems or Questions: Contact Your Physician Skin/Wound Care Infection Signs and Symptoms: Increased Redness, Foul Odor of Wound, Increased Drainage, Skin Itchy or Has a Rash, Increased Swelling, Temperature Above 101 F Operative Area Clean and Dry: Keep Incision Clean/Dry Stitches/[place]/Dermabond: Dermabond, Care of Stitches Bathing Instructions: TYSHAWN Hidalgo DO Apr 29, 2018 11:00 am
[2018-04-29] MEDS ORDERED: DOCU100C37 PO ×2 (11:03)
[2018-04-29] MEDS ORDERED: IBUP-1773 PO ×2 (11:03)
[2018-04-29] MEDS ORDERED: HYDR-4226 PO ×2 (11:03)
[2018-04-29] MEDS: KETOROLAC 30 MG/ML VIAL IVP SCH ×3 (12:28→23:51)
--- NOTE | 2018-04-29 12:57 | OPERATIVE REPORT ---
DATE OF SERVICE: PREOPERATIVE DIAGNOSES: 1. A 22-year-old G2, P1 at 38 weeks gestation. 2. Cholestasis of . 3. intolerance of labor. POSTOPERATIVE DIAGNOSES: 1. A 22-year-old G2, P1 at 38 weeks gestation. 2. Cholestasis of . 3. intolerance of labor. PROCEDURE: Primary low transverse section. SURGEON: Amauri Akhtar DO PRODUCTION MACHINE OPERATOR: Dr. Nely Meneses ANESTHESIA: Spinal. ESTIMATED BLOOD LOSS: 500 mL. URINE OUTPUT: 1000 mL, clear at the end of procedure. FLUIDS: 2000 mL of lactated Ringer's solution. FINDINGS: A live male , weighing 7 pounds 5 ounces, Apgars of 8 and 9. Grossly normal-appearing uterus, bilateral fallopian tubes and ovaries. SPECIMEN SENT: Placenta. INDICATIONS FOR PROCEDURE: Please see my preoperative note for complete details pertaining to the preoperative discussion with the patient and her . OPERATIVE REPORT IN DETAIL: Once in the operating room, spinal anesthesia was found to be adequate, she was placed in dorsal lithotomy position, prepped and draped in normal sterile fashion. A Pfannenstiel skin incision was made with a knife after anesthesia was tested and a time out was performed. This incision was then carried down to the underlying fascia using Bovie cautery. Fascial incision extended laterally using Bovie cautery. Superior aspect of the fascial incision was then grasped with Chuck clamps, tented up and dissected off the underlying rectus muscles. The inferior aspect of the fascial incision was then grasped with Chuck clamps, tented up and dissected off the underlying rectus muscles. Rectus muscle was then dissected down the midline using Dempsey scissors, which exposed the peritoneum which I entered bluntly and extended using blunt traction. I then placed the Dixon ring retractor in the peritoneal incision, which offered excellent lateral sidewall retraction. I proceeded with making a low transverse incision into the vesicouterine peritoneum, bluntly dissecting off the lower uterine segment. I proceeded with my myotomy until membranes were visualized and ruptured through the incision itself. I then continued the uterine incision laterally and superiorly using bandage scissors. The infant was found in the vertex presentation, right occiput transverse. With gentle fundal pressure, the infant's head was elevated and delivered through the incision where the nares and oropharynx were bulb suctioned. Anterior and posterior shoulders were delivered. Infant was then brought out to the operative field where the cord was doubly clamped and the was taken off of the operative field by Dr. Meneses. Cord blood was collected. Three-vessel cord with intact placenta was delivered spontaneously thereafter. IV Pitocin was initiated to facilitate uterine contraction. Uterine fundus became firmer with bimanual massage. Uterus was then exteriorized and cleared of all endometrial clots and debris. I then proceeded with closing the uterine incision using 0 Vicryl suture in running locked fashion. Second layer of imbricating 0 Monocryl was placed. Excellent hemostasis was noted after doing this; however, I did have to place several 3-0 Vicryl sutures in a [id number] fashion around the middle of the incision due to persistent bleeding. These ligating sutures were able to control the bleeding to the point where there was no further bleeding noted. I then placed the uterus back in the pelvis and copiously irrigated the pelvis using normal saline. Once again, there was no active bleeding noted from any of my dissection planes. I placed Interceed antiadhesive over my low transverse incision after copiously irrigating the pelvis using normal saline. I then proceeded with closing the peritoneum using 3-0 Vicryl suture in a running fashion. The rectus muscle was reapproximated using 3-0 Vicryl suture in an interrupted fashion. The fascia was reapproximated using 0 Vicryl suture in a running fashion. The subcutaneous tissue was reapproximated using 3-0 plain in interrupted subcutaneous stitch and the skin was reapproximated using 4-0 Monocryl in a running subcuticular. Dermabond was applied to the incision and sterile dressing with adhesive white tape. Ancef, 2 grams, was given preoperatively for infection prophylaxis. The patient tolerated the procedure well and was taken to recovery area in stable condition. Lap and sponge counts were correct at the end of the procedure. Instrument count was correct as well. Job ID: [id number] DocumentID: [id number] Dictated Date: 04/29/2018 10:58:51 Button Breaker Date: 04/29/2018 12:56:24 Dictated By: AMAURI AKHTAR DO
[2018-04-29] MEDS: HYDROcodone/APAP 5 MG/325 MG (LORTAB) TAB PO PRN ×2 (14:34→20:50)
[2018-04-29] MEDS: DOCUSATE SODIUM 100 MG (COLACE) CAP PO SCH (20:50)
[2018-04-29] MEDS: CATHETER FLUSH 10 ML SYR IV SCH (23:51)
[2018-04-30 04:10] VITALS: BP 106/65
[2018-04-30 05:53] LABS: BASOPHILS % (AUTO) 0 % (0-10); EOSINOPHILS % (AUTO) 0 % (0-10); HEMATOCRIT 28 % (35-52); HEMOGLOBIN 9.2 G/DL (11.5-16.0); LYMPHOCYTES # (AUTO) 3.2 X 10^3 (1.0-4.0); LYMPHOCYTES % (AUTO) 28 % (12-44); MEAN CORPUSCULAR HEMOGLOBIN 27 PG (25-34); MEAN CORPUSCULAR HGB CONC 33 G/DL (32-36); MEAN CORPUSCULAR VOLUME 81 FL (80-99); MEAN PLATELET VOLUME 9.8 FL (7.4-10.4); MONOCYTES # (AUTO) 0.8 X 10^3 (0.0-1.0); MONOCYTES % (AUTO) 7 % (0-12); NEUTROPHILS # (AUTO) 7.2 X 10^3 (1.8-7.8); NEUTROPHILS % (AUTO) 64 % (42-75); PLATELET COUNT 250 10^3/uL (130-400); RED BLOOD COUNT 3.41 10^6/uL (4.35-5.85); RED CELL DISTRIBUTION WIDTH 15.3 % (10.0-14.5); WHITE BLOOD COUNT 11.3 10^3/uL (4.3-11.0)
[2018-04-30] MEDS: KETOROLAC 30 MG/ML VIAL IVP SCH (06:14)
[2018-04-30] MEDS: CATHETER FLUSH 10 ML SYR IV SCH (06:14)
--- NOTE | 2018-04-30 07:46 | Postpartum Progress Note ---
Note Note Day #1 Subjective: Patient is without complaints. Ambulating, voiding. Tolerating a regular diet without nausea or vomiting. Normal lochia. Pain is well controlled with oral pain medications. Objective: Vital Sign - Last 24 Hours 04/29/18 04/29/18 04/29/18 04/29/18 08:00 08:15 08:30 08:45 Pulse 83 93 92 86 Resp 18 B/P (MAP) 107/64 (78) 101/65 (77) 114/85 (95) 107/79 (88) O2 Delivery Room Air Room Air Room Air Room Air 04/29/18 04/29/18 04/29/18 04/29/18 09:00 09:15 09:30 09:45 Temp 98.2 Pulse 96 93 95 108 Resp 18 B/P (MAP) 109/75 (86) 98/59 (72) 124/78 (93) 126/83 (97) O2 Delivery Room Air Room Air Room Air Room Air 04/29/18 04/29/18 04/29/18 04/29/18 13:30 18:16 20:50 23:51 Temp 97.9 98.9 98.1 98.4 Pulse 91 98 90 99 Resp 18 B/P (MAP) 119/79 (92) 124/79 (94) 112/79 (90) 109/68 (82) Pulse Ox 99 99 100 98 O2 Delivery Room Air Room Air Room Air Room Air 04/30/18 04:10 Temp 98.0 Pulse 83 Resp 18 B/P (MAP) 106/65 (79) Pulse Ox 98 O2 Delivery Room Air Intake and Output 04/29/18 04/29/18 04/30/18 15:00 23:00 07:00 Intake Total 1710 ml 900 ml 600 ml Output Total 275 ml 150 ml 400 ml Balance 1435 ml 750 ml 200 ml Physical Exam: General - Alert and oriented, no apparent distress Abdomen - Soft, appropriately tender to palpation, non-distended, fundus firm at umbilicus Extremities - no edema, negative Jessica's bilaterally Incision- c/d/i Assessment: POD 1 PLTCS -YOJANA Acute blood loss anemia Plan: Routine care. Encourage breast feeding. Encourage ambulation. Ferrous sulfate supplementation. Plan for discharge tomorrow Vitals - Labs Vital Signs - I&O Vital Signs Date Time Temp Pulse Resp B/P (MAP) Pulse Ox O2 Delivery O2 Flow Rate FiO2 04/30/18 04:10 98.0 83 18 106/65 (79) 98 Room Air 04/29/18 23:51 98.4 99 18 109/68 (82) 98 Room Air 04/29/18 20:50 98.1 90 18 112/79 (90) 100 Room Air 04/29/18 18:16 98.9 98 20 124/79 (94) 99 Room Air 04/29/18 13:30 97.9 91 16 119/79 (92) 99 Room Air 04/29/18 09:45 108 18 126/83 (97) Room Air 04/29/18 09:30 95 18 124/78 (93) Room Air 04/29/18 09:15 93 18 98/59 (72) Room Air 04/29/18 09:00 98.2 96 18 109/75 (86) Room Air 04/29/18 08:45 86 18 107/79 (88) Room Air 04/29/18 08:30 92 18 114/85 (95) Room Air 04/29/18 08:15 93 18 101/65 (77) Room Air 04/29/18 08:00 83 18 107/64 (78) Room Air I & O 04/30/18 07:00 Intake Total 3210 ml Output Total 825 ml Balance 2385 ml Labs Laboratory Tests 04/30/18 05:38: White Blood Count 11.3H, Red Blood Count 3.41L, Hemoglobin 9.2L, Hematocrit 28L , Mean Corpuscular Volume 81, Mean Corpuscular Hemoglobin 27, Mean Corpuscular Hemoglobin Concent 33, Red Cell Distribution Width 15.3H, Platelet Count 250, Mean Platelet Volume 9.8, Neutrophils (%) (Auto) 64, Lymphocytes (%) (Auto) 28, Monocytes (%) (Auto) 7, Eosinophils (%) (Auto) 0, Basophils (%) (Auto) 0, Neutrophils # (Auto) 7.2, Lymphocytes # (Auto) 3.2, Monocytes # (Auto) 0.8, Eosinophils # (Auto) 0.0, Basophils # (Auto) 0.0 TYSHAWN AKHTAR DO Apr 30, 2018 07:46
--- NOTE | 2018-04-30 07:49 | Anesthesia-Regional Post-Op ---
Regional Patient Condition Mental Status: Alert, Oriented x3 Circulation: Same as Pre-Op Headache: Absent Sensation: Full Recovery Motor Block: Absent Post Op Complications Complications None Follow Up Care/Instructions Patient Instructions None needed. Anesthesia/Patient Condition Patient is doing well, no complaints, stable vital signs, no apparent adverse anesthesia problems. No complications reported per nursing. REY SOLO CRNA Apr 30, 2018 07:49
[2018-04-30 08:00] VITALS: BP 125/80
[2018-04-30] MEDS: DOCUSATE SODIUM 100 MG (COLACE) CAP PO SCH ×2 (09:13→21:17)
[2018-04-30] MEDS: HYDROcodone/APAP 5 MG/325 MG (LORTAB) TAB PO PRN ×3 (09:15→23:46)
[2018-04-30] MEDS: IBUPROFEN 600 MG (MOTRIN) TAB PO SCH ×3 (11:56→23:46)
[2018-04-30 12:00] VITALS: BP 125/80
[2018-04-30 16:20] VITALS: BP 101/73
[2018-04-30 23:00] VITALS: BP 101/70
[2018-05-01 05:52] VITALS: BP 111/70
[2018-05-01] MEDS: IBUPROFEN 600 MG (MOTRIN) TAB PO SCH (05:52)
[2018-05-01] MEDS: DOCUSATE SODIUM 100 MG (COLACE) CAP PO SCH (08:41)
[2018-05-01 08:42] VITALS: BP 110/75
--- NOTE | 2018-05-01 08:45 | Progress Note-Standard ---
Standard Progress Note Progress Notes/Assess & Plan Date Seen by a Provider: May 01, 2018 Time Seen by a Provider: 08:44 Progress/Assessment & Plan This patient is without complaint. She is ambulating, voiding, tolerating oral intake well, has good pain control, she is requesting discharge home. Vital Signs 04/29/18 05/01/18 03:45 05:52 Temp 97.6 Pulse 79 Resp 18 B/P (MAP) 111/70 (84) Pulse Ox 99 O2 Delivery Room Air O2 Flow Rate 12.00 Vital signs are stable. Patient is afebrile. The abdomen is benign. Extremities show no clubbing cyanosis. There is no Homans sign. Assessment and plan postoperative day number 2 status post primary delivery doing well. Plan is for discharge home Final Diagnosis delivery LORENZO GONZALEZ MD May 01, 2018 8:45 am
--- NOTE | 2018-05-06 14:52 | DISCHARGE SUMMARY ---
DATE OF SERVICE: ADMISSION DIAGNOSES: 1. A 22-year-old G2, P1 at 38 weeks and 2 days' gestation. 2. Suspected intrahepatic cholestasis of . DISCHARGE DIAGNOSES: 1. A 22-year-old G2, P1 at 38 weeks and 2 days' gestation. 2. Suspected intrahepatic cholestasis of . 3. Postop day 2 primary section. ATTENDING PHYSICIAN: Tyshawn Akhtar DO, who was consulted and took over care from Dr. Cathie Byrne with coverage by Dr. Jacob Hernandez. SERVICES: [facility] services. HOSPITAL COURSE: Please see admission note from 04/28/2018 for complete details pertaining to patient's admission presentation and plan of care. Please see operative report from 04/29/2018 for complete details pertaining to the patient's operative report in detail as well as the indications for procedure. POSTOPERATIVE COURSE: This patient was fairly routine on postop day 1, she was doing well, ambulating and voiding freely. She voiced no concerns. Her pain medication were doing a good job of controlling her pain. Her hemoglobin dropped from 11.2 to 9.2 and she was started on ferrous sulfate supplementation to restore iron stores. On postop day 2, the patient continued to do well and was ambulating without difficulty, tolerating regular diet. Pain was well controlled. Lochia was light. Due to the patient's clinical stability, discharge was planned for postop day 2. She was given routine postoperative and precautions and told to return to care for any concerns should arise. She was made postoperative visits with my office as well as a 6-week followup with Dr. Byrne. All of her questions were answered pertaining to the patient's discharge medications, which include Motrin 600 mg 1 p.o. q.6 hours p.r.n. as needed for pain, #60. Hydrocodone 5/325 one to two p.o. q.4-6 hours p.r.n. as needed for pain, #50. Colace 100 mg 1 p.o. b.i.d. p.r.n. as needed for constipation, #40 and she was told to continue vitamin and ferrous sulfate supplementation. Discharge was facilitated at that point without further difficulty. Job ID: [id number] DocumentID: [id number] Dictated Date: 05/06/2018 07:37:27 Pie Icer Machine Date: 05/06/2018 14:51:45 Dictated By: TYSHAWN AKHTAR DO
== END 2018-05-01 12:45 | disposition home or self-care (01) | DRG 765 ==
LOC: LDRP 12:44
PROVIDERS: ADMIT Family Medicine; ATTEND Family Medicine
PROC: 3E033VJ Introduction of Other Hormone into Peripheral Vein, Percutaneous Approach (ICD-10-PCS; 2018-04-28)
PROC: 10D00Z1 Extraction of Products of Conception, Low, Open Approach (ICD-10-PCS; principal; 2018-04-29 09:51)
DX: O36.8130 Decreased fetal movements, third trimester, not applicable or unspecified (principal); O26.613 Liver and biliary tract disorders in pregnancy, third trimester; K83.1 Obstruction of bile duct; O76 Abnormality in fetal heart rate and rhythm complicating labor and delivery; O99.03 Anemia complicating the puerperium; D62 Acute posthemorrhagic anemia; O26.893 Other specified pregnancy related conditions, third trimester; M06.9 Rheumatoid arthritis, unspecified; O99.283 Endocrine, nutritional and metabolic diseases complicating pregnancy, third trimester; E88.81 Metabolic syndrome and other insulin resistance; O99.820 Streptococcus B carrier state complicating pregnancy; O99.213 Obesity complicating pregnancy, third trimester; E66.9 Obesity, unspecified; Z68.41 Body mass index [BMI] 40.0-44.9, adult; Z67.41 Type O blood, Rh negative; Z3A.38 38 weeks gestation of pregnancy; Z37.0 Single live birth
CPT/HCPCS: 36415; 85025; 86850; 86900; 86901; 88307; 94664

== ENCOUNTER → 2018-05-03 | Outpatient (CLI) | payer OTHER ==
[~2018-05-03] MED LIST changes: +DOCU100C37 PO; +HYDR-4226 PO; +IBUP-1773 PO; +IOHEXOL 350 MG/ML 100 ML (OMNIPAQUE 350) VIAL IV ONE; +NS 250 ML (IVPB) BAG IV ONE; +PREN-142 PO
--- NOTE | 2018-05-03 10:20 | Diagnostic Imaging Report ---
Clinical indication: Patient with left leg pain and foot edema. Exam: Ultrasound venous Doppler study of the left lower extremity. Comparison: None. Findings: Ultrasound venous Doppler evaluation of the left common femoral vein, left superficial femoral vein, left deep femoral vein, left popliteal femoral vein, left posterior tibial vein demonstrated spontaneous Doppler flow with augmentation. The left peroneal vein demonstrates spontaneous Doppler flow. There is no evidence of deep venous thrombosis. Impression: There is no evidence of deep venous thrombosis involving the visualized left lower extremity venous structures. Dictated by: Dictated on workstation # [id number]
== END ==
LOC: RAD 09:33
PROVIDERS: ATTEND Family Medicine
DX: R60.0 Localized edema (principal); M79.605 Pain in left leg

== ENCOUNTER 2021-01-23 02:07 | Inpatient (IN) | payer OTHER ==
[2021-01-23] VITALS (45 sets, daily range): BP systolic 101–130; BP diastolic 55–83
[~2021-01-23] VITALS: Ht 162.6 cm; Wt 120.6 kg
[~2021-01-23 02:07] MED LIST changes: -IOHEXOL 350 MG/ML 100 ML (OMNIPAQUE 350) VIAL IV ONE; -NS 250 ML (IVPB) BAG IV ONE
[2021-01-23] MEDS ORDERED: D5 LR IV SOLUTION 1,000 ML IV ONE (02:54)
[2021-01-23] MEDS: D5 LR IV SOLUTION 1,000 ML IV SCH ×2 (03:30→10:45)
[2021-01-23] MEDS ORDERED: LACTATED RINGERS 1,000 ML IV SCH ×2 (08:30→09:45)
[2021-01-23] MEDS ORDERED: fentaNYL 2 mcg/ml BUPIVA 0.125 100 ML ONE (08:40)
[2021-01-23] MEDS ORDERED: D5 LR IV SOLUTION 1,000 ML IV SCH (08:45)
[2021-01-23] MEDS ORDERED: OXYTOCIN PRE-MIX DRIP 500 ML IV SCH (08:45)
[2021-01-23 08:48] LABS: BASOPHILS % (AUTO) 0 % (0-10); EOSINOPHILS % (AUTO) 0 % (0-10); HEMATOCRIT 33 % (35-52); HEMOGLOBIN 10.5 g/dL (11.5-16.0); LYMPHOCYTES # (AUTO) 2.5 10^3/uL (1.0-4.0); LYMPHOCYTES % (AUTO) 22 % (12-44); MEAN CORPUSCULAR HEMOGLOBIN 26 pg (25-34); MEAN CORPUSCULAR HGB CONC 32 g/dL (32-36); MEAN CORPUSCULAR VOLUME 82 fL (80-99); MEAN PLATELET VOLUME 10.8 fL (9.0-12.2); MONOCYTES # (AUTO) 0.7 10^3/uL (0.0-1.0); MONOCYTES % (AUTO) 6 % (0-12); NEUTROPHILS # (AUTO) 8.2 10^3/uL (1.8-7.8); NEUTROPHILS % (AUTO) 71 % (42-75); PLATELET COUNT 333 10^3/uL (130-400); WHITE BLOOD COUNT 11.5 10^3/uL (4.3-11.0)
[2021-01-23] MEDS ORDERED: METOCLOPRAMIDE INJ 10 MG/2 ML (REGLAN) IV PRN (09:45)
[2021-01-23] MEDS ORDERED: ONDANSETRON 4 MG/2 ML (SDV) Z0FRAN IV PRN (09:45)
[2021-01-23] MEDS ORDERED: diphenhydrAMINE 50 MG/ML INJ (BENADRYL) IV PRN (09:45)
[2021-01-23] MEDS ORDERED: EPIDURAL (fentaNYL 2 MCG/ML BUPIVA 0.125%)100 ML BAG EPI SCH (09:45)
[2021-01-23] MEDS ORDERED: NALOXONE 0.4 MG/ML 1 ML (NARCAN) VIAL IV PRN ×2 (09:45)
[2021-01-23] MEDS: OXYTOCIN PRE-MIX DRIP 500 ML IV SCH ×2 (12:36→13:10)
--- NOTE | 2021-01-23 13:04 | OB Labor & Delivery Record ---
L&D History Date of Service Date of Service: Jan 23, 2021 History Expected Date of Delivery: Jan 30, 2021 Gestational Age in Weeks: 39 Hx : 3 Hx Para: 2 Complications Events: Routine care Operative Indications (Cesarea: N/A-Vaginal Delivery Intrapartal Events: None L&D Stage1 Stage One Onset of Labor - Date: Jan 23, 2021 Monitors and Tracing Monitor Mode: External Heart Rate: 130 Monitor Decelerations: Variable Half-Way Variability: Average (6-10) Short Term Variability: Present Presentation: Vertex Vital Signs VS - Last 72 Hours, by Label 01/23/21 01/23/21 01/23/21 01/23/21 02:30 02:30 02:30 03:00 Temp 36.2 36.2 36.2 Pulse 96 96 96 Resp 20 20 20 B/P (MAP) 123/73 (90) Pulse Ox 95 95 95 O2 Delivery Room Air Room Air Room Air Room Air 01/23/21 01/23/21 01/23/21 01/23/21 04:00 05:00 07:40 09:13 Temp 36.6 35.7 36.3 Pulse 84 76 85 96 Resp 18 18 18 18 B/P (MAP) 111/70 (84) 114/70 (85) 119/69 (86) 127/83 (98) Pulse Ox 99 100 O2 Delivery Room Air Room Air 01/23/21 09:22 Pulse 97 Resp 18 B/P (MAP) 123/83 (96) Pulse Ox 100 O2 Delivery Room Air Rupture of Membranes Spontaneous Ruture of Membrane: No Amniotic Membrane Rupture Time: 08:15 Amniotic Membrane Fluid Desc.: Clear (scant) Vaginal Bleeding Description: Normal Show Induction/Anesthesia Epidural Cath Placement - Time: 919 Progress/Notes Patient progressed to complete and +1 station with minimal pitocin augmentation. L&D Stage2 Stage Two Stage II Date: Jan 23, 2021 Monitors and Tracing Monitor Mode: External Heart Rate: 130 Monitor Decelerations: Prolonged Blindstitch Lining Feller Variability: Average (6-10) Short Term Variability: Present Position: Right Occiput Anterior Presentation: Vertex Cord Descript/Complications Cord Vessel Description: 3 Vessels Delivery Type Infant Delivery Method: Spontaneous Vaginal Anterior Shoulder: Right Episiotomy/Perineal Laceration Laceraction(s)/Extensions: Yes Degree (describe repair) periurethral right sided laceration repaired using 3-0 rapide in usual fashion. Condition of Delivery 1 minute Comment: 8 5 minute Comment: 9 Notes Live male infant weight pending. Condition of Condition of Infant: Living Exam: No Observed Abnormalities Resuscitation Resuscitation: N/A - Spontaneous Resp L&D Stage3 Stage Three Stage III Date: Jan 23, 2021 Pictocin Pitocin Administration Comment: 30 mu wide open after delivery of placenta Placenta Delivery Placenta Delivery: Spontaneous Delivery Summary Summary Estimated blood loss (mL): 350 Attending at delivery: Tyshawn Akhtar DO Condition of Delivery Examined: Cervix Examined, Uterus Explored Post Hemorrhage: No Condition of Mother stable Condition of Infant (s) stable TYSHAWN AKHTAR DO Jan 23, 2021 13:04
--- NOTE | 2021-01-23 13:07 | History & Physical-OB ---
OB - Chief Complaint & HPI Date/Time Date of Admission: Date of Admission: Jan 23, 2021 at 08:23 Date seen by a Provider: Jan 23, 2021 Time Seen by a Provider: 08:15 Chief Complaint/History OB-Reason for Admission/Chief: Onset of Labor Hx : 3 Hx Para: 2 Expected Date of Delivery: Jan 30, 2021 Gestational Age in Weeks: 39 Gestational Age in Days: 0 Admission Nurse Assessment Rev: Yes History of Labs GBS neg Other Patient presented in early labor, she is wanting to attempt TOLAC and had been counciled extensively in the office. Allergies and Home Medications Allergies Coded Allergies: No Known Drug Allergies (Unverified , 01/02/14) Home Medications Docusate Sodium 100 Mg Capsule, 100 MG PO BID PRN for CONSTIPATION-1ST LINE Prescribed by: TYSHAWN AKHTAR on 04/29/18 1103 Hydrocodone/Acetaminophen 1 Each Tablet, 1-2 TAB PO Q6H Prescribed by: TYSHAWN AKHTAR on 04/29/18 1103 Ibuprofen 600 Mg Tablet, 600 MG PO Q6H Prescribed by: TYSHAWN AKHTAR on 04/29/18 1103 Vit No.124/Iron/FA 1 Each Tablet, 1 EACH PO DAILY, (Reported) Patient Home Medication List Home Medication List Reviewed: Yes OB - History Hx of Present Care: Yes Ultrasounds: Normal mid trimester US Obstetrical Complications: None Medical Complications: None Obstetrical History Hx : 3 Hx Para: 2 Hx Termination: No Hx Total # of Abortions (Spona: 0 Hx Multiple Gestation: No Hx Stillbirth: No Hx Complication: No Hx Induced Hypertens: No Hx Maternal Gestational Diabet: No Delivery History Hx Dystocia: No Hx Large For Gestational Age I: No Hx Small for Gestational Age I: No Hx Section: No Hx Vaginal Delivery Post C-Sec: No Hx Blood Disorders: No Adverse Rxn to Tranfusion: No Patient Past Medical History PMHx: Rheumatoid arthritis Insulin resistance Social History/Family History Alcohol Use: Denies Use Recreational Drug Use: No 2nd Hand Smoke Exposure: No Immunizations Hepatitis A: Yes Hepatitis B: Yes Tetanus Booster (TDap): Less than 5yrs OB - Admission Exam Physical Exam Vitals: Vital Signs 01/23/21 01/23/21 07:40 09:22 Temp 36.3 Pulse 97 Resp 18 B/P (MAP) 123/83 (96) Pulse Ox 100 O2 Delivery Room Air HEENT: NCAT Heart: Rhythm Normal Lungs: Clear Abdomen: Gravid Extremities: Normal Reflexes: Normal Cervical Dilatation: 4cm Effacement: 75% Station: -1 Membranes: Intact Heart Rate: 130's Accelerations: Accelerations Present Decelerations: No Decelerations Short Term Variability: Present Clinical Operations Consultant Variability: Average (6-25) Contractions on Admission: 6-10 Minutes Apart Intensity: Firm Labs Laboratory Tests Test 01/23/21 03:15 Range/Units White Blood Count 11.5 H 4.3-11.0 10^3/uL Red Blood Count 4.04 3.80-5.11 10^6/uL Hemoglobin 10.5 L 11.5-16.0 g/dL Hematocrit 33 L 35-52 % Mean Corpuscular Volume 82 80-99 fL Mean Corpuscular Hemoglobin 26 25-34 pg Mean Corpuscular Hemoglobin Concent 32 32-36 g/dL Red Cell Distribution Width 15.1 H 10.0-14.5 % Platelet Count 333 130-400 10^3/uL Mean Platelet Volume 10.8 9.0-12.2 fL Immature Granulocyte % (Auto) 1 % Neutrophils (%) (Auto) 71 42-75 % Lymphocytes (%) (Auto) 22 12-44 % Monocytes (%) (Auto) 6 0-12 % Eosinophils (%) (Auto) 0 0-10 % Basophils (%) (Auto) 0 0-10 % Neutrophils # (Auto) 8.2 H 1.8-7.8 10^3/uL Lymphocytes # (Auto) 2.5 1.0-4.0 10^3/uL Monocytes # (Auto) 0.7 0.0-1.0 10^3/uL Eosinophils # (Auto) 0.0 0.0-0.3 10^3/uL Basophils # (Auto) 0.0 0.0-0.1 10^3/uL Immature Granulocyte # (Auto) 0.1 0.0-0.1 10^3/uL OB - Assessment/Plan/Diagnosis Assessment Assessment: active labor Admission Dx 25 yo @ 39 weeks TOLAC GBS neg Admission Status: Inpatient Order (span 2 midnights) Reason for Inpatient Admission: Active labor at term Plan Plan: Expectant Management TYSHAWN AKHTAR DO Jan 23, 2021 13:07
[2021-01-23] MEDS ORDERED: BENZOCAINE/MENTHOL (DERMOPLAST) 56 ML CAN TP PRN (13:15)
[2021-01-23] MEDS ORDERED: WITCH HAZEL(TUCKS) 40 EA JAR TOP PRN (13:15)
[2021-01-23] MEDS ORDERED: TETANUS,DIPTH,PERTUSS P/F (BOOSTRIX) 0.5 ML VIAL IM ONE (13:15)
[2021-01-23] MEDS ORDERED: DIBUCAINE 1% OINTMENT 30 GM TUBE TOP PRN (13:15)
[2021-01-23] MEDS ORDERED: MEASLES,MUMPS,RUBELLA 1 EA INJ SQ ONE (13:15)
[2021-01-23] MEDS ORDERED: CATHETER FLUSH 10 ML SYR IV SCH ×2 (14:00)
[2021-01-23] MEDS ORDERED: IBUPROFEN 600 MG (MOTRIN) TAB PO ONE (15:58)
[2021-01-23] MEDS: IBUPROFEN 600 MG (MOTRIN) TAB PO SCH ×2 (16:03→21:22)
[2021-01-23] MEDS: DOCUSATE SODIUM 100 MG (COLACE) CAP PO SCH (21:22)
[2021-01-24 00:30] VITALS: BP 92/54
[2021-01-24 03:30] VITALS: BP 102/50
[2021-01-24] MEDS: IBUPROFEN 600 MG (MOTRIN) TAB PO SCH ×2 (03:40→10:28)
--- NOTE | 2021-01-24 06:17 | Postpartum Progress Note ---
Note Note Day # 1 Subjective: Patient is without complaints. Ambulating, voiding. Tolerating a regular diet without nausea or vomiting. Normal lochia. Pain is well controlled with oral pain medications. Objective: Physical Exam: General - Alert and oriented, no apparent distress Abdomen - Soft, appropriately tender to palpation, non-distended, fundus firm at umbilicus Extremities - no edema, negative Jessica's bilaterally Assessment: PPD 1 NVD Successful Plan: Routine care. Encourage breast feeding. Encourage ambulation. Ferrous sulfate supplementation. Plan for discharge today Vitals - Labs Vital Signs - I&O Vital Signs Date Time Temp Pulse Resp B/P (MAP) Pulse Ox O2 Delivery O2 Flow Rate FiO2 01/24/21 03:30 35.7 74 18 102/50 (67) 99 Room Air 01/24/21 00:30 36.0 78 18 92/54 (67) 99 Room Air 01/23/21 20:25 36.3 84 18 127/72 (90) 99 Room Air 01/23/21 16:01 37.0 91 18 116/61 (79) 100 Room Air 01/23/21 14:35 88 18 119/72 (88) Room Air 01/23/21 14:21 82 18 118/74 (89) Room Air 01/23/21 14:06 36.3 93 18 120/81 (94) Room Air 01/23/21 13:51 95 18 113/69 (84) Room Air 01/23/21 13:37 84 18 119/82 (94) Room Air 01/23/21 13:21 77 18 126/60 (82) Room Air 01/23/21 13:06 36.4 92 18 116/57 (76) Room Air 01/23/21 12:51 106 18 122/64 (83) Room Air 01/23/21 12:42 102 18 120/61 (80) Room Air 01/23/21 12:20 102 18 128/73 (91) 100 Non Rebreather 15.00 01/23/21 12:06 78 18 130/75 (93) 100 Non Rebreather 15.00 01/23/21 11:52 100 18 130/62 (84) 100 Non Rebreather 15.00 01/23/21 11:35 36.3 87 18 115/71 (86) 100 Non Rebreather 15.00 01/23/21 11:20 107 18 117/73 (88) 99 Room Air 01/23/21 11:05 93 18 115/73 (87) 99 Room Air 01/23/21 10:52 100 18 119/74 (89) 100 Room Air 01/23/21 10:35 109 18 111/63 (79) 100 Room Air 01/23/21 10:30 105 18 101/62 (75) 99 Room Air 01/23/21 10:25 89 18 108/65 (79) 100 Room Air 01/23/21 10:22 97 18 111/65 (80) 100 Room Air 01/23/21 10:16 83 18 102/63 (76) 100 Room Air 01/23/21 10:11 92 18 109/64 (79) 100 Room Air 01/23/21 10:06 97 18 109/67 (81) 100 Room Air 01/23/21 10:01 36.4 100 18 113/72 (86) 100 Room Air 01/23/21 09:58 97 18 110/67 (81) 100 Room Air 01/23/21 09:55 102 18 101/65 (77) 100 Room Air 01/23/21 09:52 100 18 103/64 (77) 100 Room Air 01/23/21 09:49 100 18 103/70 (81) 100 Room Air 01/23/21 09:46 88 18 109/65 (80) 100 Room Air 01/23/21 09:43 90 18 115/64 (81) 100 Room Air 01/23/21 09:40 100 18 109/55 (73) 100 Room Air 01/23/21 09:37 94 18 108/68 (81) 100 Room Air 01/23/21 09:34 96 18 105/65 (78) 100 Room Air 01/23/21 09:31 99 18 112/68 (83) 100 Room Air 01/23/21 09:28 89 18 123/78 (93) 100 Room Air 01/23/21 09:26 96 18 123/82 (96) 100 Room Air 01/23/21 09:22 97 18 123/83 (96) 100 Room Air 01/23/21 09:13 96 18 127/83 (98) 100 Room Air 01/23/21 07:40 36.3 85 18 119/69 (86) 99 Room Air I & O 01/24/21 07:00 Intake Total 3308 ml Output Total 850 ml Balance 2458 ml TYSHAWN AKHTAR DO Jan 24, 2021 06:17
[2021-01-24] MEDS ORDERED: PNV1TABL67 PO (06:19)
[2021-01-24] MEDS ORDERED: FERR325T24 PO (06:19)
[2021-01-24] MEDS ORDERED: DCS100C PO (06:19)
[2021-01-24] MEDS ORDERED: BENZ78AE5 TP (06:19)
[2021-01-24] MEDS ORDERED: IBUP-844 PO (06:19)
[2021-01-24] MEDS ORDERED: DIBU30OI TOP (06:19)
--- NOTE | 2021-01-24 06:20 | Discharge Inst-Women's Service ---
Discharge Inst-Women's Serv Depart Medication/Instructions New, Converted or Re-Newed RX: RX on Chart Problems Reviewed?: Yes Consults/Follow Up Additional Follow Up: Yes Activity Activity: Activity as Tolerated Driving Instructions: No Driving for 1 Week NO SMOKING: NO SMOKING Nothing Inside Vagina: No Douching, No [place], No Tampons Diet Discharge Diet: No Restrictions Symptoms to Report to : Bleeding Excessive, Pain Increased, Fever Over 101 Degrees F, Vaginal Bleeding Increase, Questions/Concerns For Any Problems or Questions: Contact Your Physician TYSHAWN AKHTAR DO Jan 24, 2021 06:20
[2021-01-24 06:45] LABS: BASOPHILS % (AUTO) 0 % (0-10); EOSINOPHILS # (AUTO) 0.1 10^3/uL (0.0-0.3); EOSINOPHILS % (AUTO) 1 % (0-10); HEMATOCRIT 35 % (35-52); HEMOGLOBIN 11.1 g/dL (11.5-16.0); LYMPHOCYTES # (AUTO) 3.2 10^3/uL (1.0-4.0); LYMPHOCYTES % (AUTO) 29 % (12-44); MEAN CORPUSCULAR HEMOGLOBIN 26 pg (25-34); MEAN CORPUSCULAR HGB CONC 32 g/dL (32-36); MEAN CORPUSCULAR VOLUME 81 fL (80-99); MEAN PLATELET VOLUME 10.5 fL (9.0-12.2); MONOCYTES # (AUTO) 0.6 10^3/uL (0.0-1.0); MONOCYTES % (AUTO) 5 % (0-12); NEUTROPHILS # (AUTO) 7.2 10^3/uL (1.8-7.8); NEUTROPHILS % (AUTO) 64 % (42-75); PLATELET COUNT 303 10^3/uL (130-400); WHITE BLOOD COUNT 11.2 10^3/uL (4.3-11.0)
[2021-01-24] MEDS ORDERED: PRENATAL VITAMIN 1 EA TAB PO SCH (07:00)
[2021-01-24] MEDS: DOCUSATE SODIUM 100 MG (COLACE) CAP PO SCH (08:47)
[2021-01-24 08:50] VITALS: BP 123/77
--- NOTE | 2021-01-24 08:56 | Anesthesia-Regional Post-Op ---
Regional Patient Condition Mental Status: Alert, Oriented x3 Circulation: Same as Pre-Op Headache: Absent Sensation: Full Recovery Motor Block: Absent Post Op Complications Complications None Follow Up Care/Instructions Patient Instructions None needed. Anesthesia/Patient Condition Patient is doing well, no complaints, stable vital signs, no apparent adverse anesthesia problems. No complications reported per nursing. D/C home per [facility] Criteria: No DARIUSZ BRAN INTERNAL RECRUITER Jan 24, 2021 08:56
[2021-01-24] MEDS ORDERED: FERROUS SULF 325 MG (IRON) TAB PO SCH (09:00)
== END 2021-01-24 16:45 | disposition home or self-care (01) | DRG 807 ==
LOC: WSo 02:07 → LDRP 02:08 → WSo 08:33 → LDRP 14:50
PROVIDERS: ADMIT Obstetrics & Gynecology; ATTEND Obstetrics & Gynecology
PROC: 10E0XZZ Delivery of Products of Conception, External Approach (ICD-10-PCS; principal; 2021-01-23)
PROC: 0UQMXZZ Repair Vulva, External Approach (ICD-10-PCS; 2021-01-23)
DX: O34.211 Maternal care for low transverse scar from previous cesarean delivery (principal); Z37.0 Single live birth; O71.82 Other specified trauma to perineum and vulva; O99.891 Other specified diseases and conditions complicating pregnancy; M06.9 Rheumatoid arthritis, unspecified; E88.81 Metabolic syndrome and other insulin resistance; Z3A.39 39 weeks gestation of pregnancy
CPT/HCPCS: 36415; 85025; 86850; 86900; 86901; 99212

== ENCOUNTER → 2022-09-21 | Outpatient (CLI) | payer BC ==
[~2022-09-21] MED LIST changes: +BENZ78AE5 TP; +DIBU30OI TOP; +DOCU-239 PO; +FERR325T24 PO; +IBUP-844 PO; +PNV1TABL67 PO
== END ==
LOC: LAB 13:15
PROVIDERS: ATTEND Nurse Practitioner Women's Health
DX: O20.9 Hemorrhage in early pregnancy, unspecified (principal); Z3A.00 Weeks of gestation of pregnancy not specified
CPT/HCPCS: 36415; 84702

== ENCOUNTER → 2022-12-26 | Outpatient (CLI) | payer BC, OTHER ==
--- NOTE | 2022-12-26 17:34 | Diagnostic Imaging Report ---
INDICATION: patient, screening. TECHNIQUE: Multiple real-time grayscale images were obtained over the gravid uterus. COMPARISON: There is no prior study during this . FINDINGS: A single live intrauterine fetus is seen measuring at 20 weeks 6 days in size by composite measurements. Cervical length is 5.1 cm. Distance from the tip of the placenta to the internal os was 4.5 cm. There appear to be several placental lakes. Amniotic fluid index is 17.06 cm. heart rate is 152 BPM. survey demonstrates normal-appearing kidneys and bladder. Normal-appearing stomach was seen. Intracranial ventricles appear normal. Four-chamber heart view appears normal. Three-vessel cord and cord insertion appear normal. Views of the spine were unremarkable. Maternal adnexa were not well seen. Biometrical measurements are as follows: Biparietal 4.95 cm, age 21 weeks 0 days. Head circumference 18.36 cm, age 20 weeks 6 days. Abdominal circumference 15.71 cm, age 21 weeks 0 days. Femur length 3.31 cm, age 20 weeks 3 days. Sonographic estimate age: 20 weeks 6 days. Sonographic estimated date of delivery: 05/09/2023. Estimated Weight: 368 gm (+/- 54 gm). LMP percentile: 66%. heart rate: 152 beats per minute. number: 1 of 1. IMPRESSION: Single live intrauterine fetus measuring 20 weeks 6 days in size as described above. There is no detectable abnormality. There are a few scattered placental lakes incidentally noted. Dictated by: Dictated on workstation # [id number]
== END ==
LOC: RAD 12:37
PROVIDERS: ATTEND Nurse Practitioner Women's Health
DX: Z36.1 Encounter for antenatal screening for raised alphafetoprotein level (principal); Z3A.20 20 weeks gestation of pregnancy
CPT/HCPCS: 76805